=== PATIENT | female | born 1945 | race Caucasian/White ===

== ENCOUNTER 2022-05-24 19:51 | Inpatient (IN) | payer OTHER ==
--- OUTSIDE RECORDS SUMMARY | 2022-05-24 19:59 | XMS REPORT | Continuity of Care Document ---
:1945 Author Organization [facility] t Address [address] [place] [address] Care Team Providers Name Role Phone Amado Ardon MD Primary Care Physician [phone] [email or web address] Attending Clinician Unavailable ELIZABETH STOVALL Attending Clinician Unavailable KANDI DAVENPORT Attending Clinician Unavailable BELINDA CALHOUN Attending Clinician Unavailable BETTY GARNER Attending Clinician Unavailable ELLE VELAZQUEZ Attending Clinician Unavailable RADHA MOY Attending Clinician Unavailable MD DENG Attending Clinician Unavailable Pattie Tompkins Attending Clinician MAXINE KENYON Attending Clinician Unavailable ANTHONY MINOR Attending Clinician Unavailable PATTIE RAM Attending Clinician Unavailable Doctor Unassigned, [place] Attending Clinician Unavailable DERRICK MARIE Attending Clinician Raiza vailable [id number] Attending Clinician Unavailable Anthony Minor MD Attending Clinician ELIS MELARA Attending Clinician Unavailable BLANCA CALDERON Attending Clinician Unavailable JEREL VELÁSQUEZ Attending Clinician Unavailable RODNEY CORTES Attending Clinician Unavailable YADY CAVAZOS Attending Clinician Unavailable CARIE Attending Clinician Unavailable ERNIE VERAS Attending Clinician Unavailable LAB59 Attending Clinician Unavailable MARTELL BELTRAN Attending Clinician Unavailable ERICA MARRERO Attending Clinician Unavailable KATHY RAZO Attending Clinician Unavailable SOFIE GARCIA Attending Clinician Unavailable Maxine Kenyon DPM Attending Clinician [id number] Attending Clinician Unavailable Kathy Razo OD Attending Clinician TOMOGRAPHY, CK OPTICAL COHERENCE Attending Clinician Unavail able Elizabeth Stovall MD Attending Clinician ROBERTH NG Attending Clinician Unavailable LUZ MARIA LOCKE Attending Clinician Unavailable PATRICIO KLEIN Attending Clinician Unavailable Luz Maria Carcamo I Attending Clinician Unavailable Wang Jorgensen Attending Clinician Unavailable Sarah Mora Attending Clinician Unavailable Breonna Womack PA-C Attending Clinician Karly Maldonado Attending Clinician Unavailable BREONNA WOMACK Attending Clinician Unavailable Pcp-Lab Attending Clinician Unavailable Pathology Attending Clinician Unavailable VALERIE ALBARRAN Attending Clinician Unavailable Cory Davis Attending Clinician Unavailable Abelardo Huerta Attending Clinician Dio Peña DO Attending Clinician ABELARDO DAVIS Attending Clinician Unavailable GILLIAN CROSS Attending Clinician Unavailable Sultana Esqueda MD Attending Clinician Jet Drummond MD Attending Clinician CARIE Admitting Clinician Unavailable Luz Maria Carcamo I Admitting Clinician Unavailable Karly Maldonado Admitting Clinician Unavailable Wang Jorgensen Admitting Clinician Unavailable Cory Davis Admitting Clinician Unavailable Payers Payer Name Policy Type Policy Number Effective Date Expiration Date S cristino [employer] Medicare P [id number] 2018 HMO 00:00:00 [facility] TXP 7 [id number] 2021 CLASSIC NO PREMIUM 00:00:00 [facility] [place] [facility] [facility] [id number] 2022 O 00:00:00 [employer]NY [employer] O 7 [id number] 2022 00:00:00 MEDICARE-PART B 5 [id number] 2022 00:00:00 NAZARIO/ROBBINP [id number] 2020 MEDICARE ADVANTAGE 00:00:00 Problems Condition Condition Condition Status Onset Resolution Last Treating Co mments Source Name Details Category Date Date Treatment Clinician Date Seizure Seizure Disease Active Univers disorder disorder 02-28 ity of 00:00: [place] [facility] Overactive Overactive Disease Active U nivers bladder bladder 02-28 ity of 00:: [place] [id number] Medical Branch Chronic Chronic Disease Active Natalya combined combined 4-28 Seybol d systolic systolic 00:00: and and 00 diastolic diastolic CHF CHF (congestiv (congestiv e heart e heart failure) failure) Osteoarthr Osteoarthr Disease Active Rafael allison itis, itis, - Seybold generalize generalize 00:00: d d 00 Fibromyalg Fibromyalg Disease Active Rafael allison ia ia -28 Seybold 00:00: 00 Seizure Seizure Disease Active Natalya -28 Seybold 00:00: 00 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 -28 Se ybold nt asthma nt asthma 00:00: without without 00 complicati complicati on on Balance Balance Disease Active Natalya problems problems -28 Seybol d 00:00: 00 Overweight Overweight Disease Active Rafael allison (BMI (BMI 4-28 Seybold 25.0-29.9) 25.0-29.9) 00:00: 00 Paroxysmal Paroxysmal Disease Active Rafael elseleti A-fib A-fib 4-28 Seybold 00:00: 00 Hypercoagu Hypercoagu Disease Active Rafael allison lability lability -28 Seybol d due to due to 00:00: atrial atrial 00 fibrillati fibrillati on on Chronic Chronic Disease Active Natalya anticoagul anticoagul -28 Se ybold ation ation 00:00: 00 High risk High risk Disease Active Cuauhtemoc herediay medication medication 4-28 Se ybold use use 00:00: 00 Allergic Allergic Disease Active Kelse y rhinitis rhinitis 10-19 Seybol d 00:00: 00 MARK MARK Disease Active Natalya (generaliz (generaliz 10-19 Se ybold ed anxiety ed anxiety 00:00: disorder) disorder) 00 S/p S/p Disease Active Natalya nephrectom nephrectom 10-19 Se ybold y y 00:00: 00 Essential Essential Disease Active Uni vers hypertensi hypertensi 2-24 it y of on on 00:00: [place] 00 Medical Branch Pure Pure Disease Active Univers hyperchole hyperchole 2-24 it y of sterolemia sterolemia 00:[place] [facility] Gastroesop Gastroesop Disease Active U nivers hageal hageal 2-24 ity of reflux reflux 00:00: [place] disease disease 00 Medical without without Branch esophagiti esophagiti s s Acquired Acquired Disease Active Unive rs hypothyroi hypothyroi 2-24 it y of dism dism 00:00: [place] 00 Medical Branch Chronic Chronic Disease Active Methodi congestive congestive 2-28 st heart heart 00:00: Hospita failure failure 00 l Chronic Chronic Disease Active 2017-06 Methodi congestive congestive 0-23 st heart heart 00:00: Hospita failure failure 00 l 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 0-23 st 00:00: Hospita 00 l CKD CKD Disease Active 2017-06 Methodi (chronic (chronic 0-23 st kidney kidney 00:00: Hospita disease) disease) 00 l stage 3, stage 3, GFR 30-59 GFR 30-59 ml/min ml/min Essential Essential Disease Active 2017-06 Met hodi hypertensi hypertensi 0-23 st on on 00:00: Hospita 00 l Other Other Disease Active 2017-06 Methodi specified specified 0-[address] hypothyroi hypothyroi 00:00: Ho spita dism dism 00 l Pure Pure Disease Active 2017-06 Methodi hyperchole hyperchole 0-23 st sterolemia sterolemia 00:00: Ho spita 00 l Age Age Disease Active 2017-06 Methodi related related 0-23 st osteoporos osteoporos 00:00: Ho spita is is 00 l Kidney Kidney Disease Active 2017-06 Methodi stone stone 023 st 00:00: Hospita 00 l Anxiety Anxiety Disease Active 2017-[address] 00:00: Hospita 00 l Chronic Chronic Disease Active 2017-[address] [facility] [address] 00:00: Hospita 00 l Paroxysmal Paroxysmal Disease Active U nivers atrial atrial 9-11 ity of fibrillati fibrillati [place] [facility] [place] Renal cyst Renal cyst Disease Active M ethodi 7- st 00:00: Hospita 00 l Solitary Solitary Disease Active Metho di left left 7 st kidney kidney 00:00: Hospita 00 l Ureterolit Ureterolit Disease Active M ethodi hiasis hiasis 6 st 00:00: Hospita 00 l Chronic Chronic Disease Active Univers systolic systolic 2-15 ity of congestive congestive 00:[place] heart heart 00 Medical failure failure Branch Anxiety Anxiety Disease Active Univers and and 9-13 [place]y of depression depression 00:[place] AICD AICD Disease Active Univers (automatic (automatic 8-17 it y of cardiovert cardiovert [place] er/defibri er/defibri 00 Me dical llator) llator) Branch present present Coronary Coronary Disease Active Unive rs artery artery 8-17 ity of disease disease 00:00: [place] involving involving 00 [facility] [place] Branch coronary coronary artery of artery of [place] heart heart without without angina angina pectoris pectoris Seronegati Seronegati Disease Active U nivers ve ve 1-19 ity of rheumatoid rheumatoid [place] arthritis arthritis 00 [facility] Branch Stage 3 Stage 3 Disease Active Univers chronic chronic 1-19 ity of kidney kidney 00:00: [place] disease disease 00 Medical Branch High risk High risk Diagnosis Active 2020-04-19 Memoria medication medication 02:48:14 l use use Active Sid n Diagnosis 04/19/2020 Zoë Najam Flare of Flare of Problem Active 2020-10-20 Memoria nephritis nephritis 02:59:08 l Active Da Problem 10/20/2020 Zoë Najam Chronic Chronic Problem Active 2020-10-20 Me moria pain pain 02:59:08 l syndrome syndrome Sid n Active Problem 10/20/2020 Zoë Benavides Flare of Flare of Problem Active 2020-10-20 Memoria rheumatoid rheumatoid 02:59:08 l arthritis arthritis Herm anthony Active Problem 10/20/2020 Zoë Benavides Rheumatoid Rheumatoi Diagnosis Active 2020-10-20 Memoria arthritis d 02:59:08 l of arthritis [place] multiple of sites multiple without sites organ or without system organ or involvemen system t with involvemen positive t with rheumatoid positive factor rheumatoid factor Active Diagnosis 10/20/2020 Zoë Benavides Lumbago Lumbago Problem Active 2020-10-20 Me moria due to due to 02:59:08 l displaceme displaceme He rmann nt of nt of interverte interverte bral disc bral disc Active Problem 10/20/2020 Zoë Benavides Allergies, Adverse Reactions, Alerts Allergy Allergy Status Severity Reaction(s) Onset Inactive Treating Comm ents Source Name Type Date Date Clinician Demerol Propensi Active Natalya ty to 428 Seybold adverse 00:00: reaction 00 s cephalex DA Active [place] R[facility] 2021-[facility] tetracyc DA Active [place] HIVES 2021-0 [facility] line 07-25 [facility]: d [facility] meperidi DA Active [place] RASH 2021-0 [facility] ne 07-25 [facility] 00:[facility]: d [facility] penicill DA Active [place] ALLERGIC [facility] in G 07-25 [facility] 00:[facility]: d 00 [facility] cephalex DA Active [place] RASH 2021-0 [facility] in 07-09 [facility] 00:[facility]: d 00 [facility] tetracyc DA Active [place] HIVES 2021-0 [facility] line 07-09 [facility] 00:00: d 00 [facility] meperidi DA Active [place] RASH 2021-0 [facility] ne 07-09 [facility] 00:[facility]: d 00 [facility] penicill DA Active [place] ALLER[facility]IC [facility] in G 07-09 [facility] 00:00: d 00 [facility] Center DULOXETI DRUG Active Other-Cmnt Univ ers NE INGREDI 2-24 ity of 00:00: [place] 00 Medical Branch Duloxeti Propensi Active Other - See "Made me Univers ne ty to comments 2-24 psychotic ity o f adverse 00:00: " [place] reaction 00 Medical s Branch Tetracyc Tetracyc Active Info Not 2019-06 Abhilash hema line HCl line HCl Available 0-26 l 00:00: Da 00 Keflex Keflex Active Info Not 2019-06 Memoria Available 0-26 l 00:00: [place] 00 Demerol Demerol Active Info Not 2019-06 Memori a Available 0-26 l 00:00: Da 00 Meperidi Propensi Active Anaphylaxis 2018-0 M ethodi ne ty to 12-10 st adverse 00:00: Hospita reaction 00 l s to drug Cephalex Propensi Active Other 2013-06 Breathing Cuauhtemoc sey in ty to 07-04 problems Seybold adverse 00:00: reaction 00 s Penicill Propensi Active Hives 2013-06 Natalya ins ty to 07-04 Seybold adverse 00:00: reaction 00 s Tetracyc Propensi Active Other 2013-06 Natalya line Hcl ty to 07-04 Seybold adverse 00:00: reaction 00 s Penicill Propensi Active Hives 2013-06 Method i ins ty to 07-04 st adverse 00:00: Hospita reaction 00 l s to drug Cephalex Propensi Active Unknown - 2013-06 Breathing Univers in ty to See comments 1-11 problems it y of adverse 00:00: [place] reaction 00 Medical s Branch Penicill Propensi Active Hives 2013-06 Univer s ins ty to 07-04 ity of adverse 00:00: [place] reaction 00 Medical s Branch MEPERIDI DRUG Active Unknown-Cmnt 2013-06 Un hugo NE HCL INGREDI 07-04 ity of 00:00: [place] 00 Medical Branch CEPHALEX DRUG Active Unknown-Cmnt 2013-06 Un hugo IN INGREDI 07-04 ity of 00:00: [place] 00 Medical Branch PENICILL Drug Active Hives 2013-06 Univers INS Class - ity of 00:00: [place] 00 Medical Branch TETRACYC DRUG Active Unknown-Cmnt 2013-06 Un hugo LINE INGREDI 07-04 ity of 00:00: [place] 00 Medical Branch Meperidi Propensi Active Unknown - 2013-06 Breathing Univers ne Hcl ty to See comments 1-11 problems, i ty of adverse 00:00: states [place] reaction 00 couldn't Medica l s breath , Branch Cephalex Propensi Active Other (See 2013-06 Breathing Methodi in ty to Comments) 07-[address] adverse 00:00: Hospita reaction 00 l s to drug Meperidi Propensi Active Other (See 2013-06 Breathing Methodi ne Hcl ty to Comments) 07-04 problems, st adverse 00:00: states Hospita reaction 00 couldn't l s to breath , drug Penicill Propensi Active Hives 2013-06 Method i ins ty to 07-04 st adverse 00:00: Hospita reaction 00 l s to drug Tetracyc Propensi Active Other (See 2013-06 Me thodi line ty to Comments) 07-04 st adverse 00:00: Hospita reaction 00 l s to drug morphine DA Active U 2008- [facility] 12-24 [facility] 00:[facility]: d 00 [facility] codeine DA Active U [facility] 12-24 [facility] 00:00: d 00 Medical Center Not DA Active U [facility] Converte 12-24 [facility] d 1437. 00:00: d See 00 Medical [facility] Family History Family Member Diagnosis Comments Start Date Stop Date Source Natural father Alcohol abuse [facility] Natural father Heart disease [facility] Natural mother Cancer [facility] Social History Social Habit Start Date Stop Date Quantity Comments Source Exposure to 2022-03-17 2022-03-27 Not sure [facility] SARS-CoV-2 00:00:00 12:40:00 [facility] (event) Branch Tobacco use and 2022-02-28 2022-02-28 Smokeless tobacco Un iversity of exposure 00:00:00 00:00:00 non-user [facility] Alcohol intake 2019-06-09 2019-06-09 Current [facility] 00:00:00 00:00:00 non-drinker of alcohol (finding) Sex [birth year] [facility] 00:00:00 00:00:00 Smoking Status Start Date Stop Date Source Never smoked tobacco [facility] Medications Ordered Filled Start Stop Current Ordering Indication Dosage Frequency Signature Comments Components Source Medication Medication Date Date Medication? Clinician (SIG) Name Name lansoprazol 2021-06 Yes 30mg Take 30 mg Univers e 30 mg 0-04 by mouth ity of capsule 13:10: in the [place] 20 morning. [facility] Branch spironolact 2021-06 Yes 25mg Take 25 mg Univers one 25 mg 0-04 by mouth ity of tablet 13:10: in the [place] 20 morning. Medical Branch lansoprazol 2021-06 Yes 30mg Take 30 mg Univers e 30 mg 0-04 by mouth ity of capsule 13:10: in the [place] 20 morning. Medical Branch spironolact 2021-06 Yes 25mg Take 25 mg Univers one 25 mg 0-04 by mouth ity of tablet 13:10: in the [place] 20 morning. Medical Branch lansoprazol 2021- Yes 30mg Take 30 mg Univers e 30 mg 0-04 by mouth ity of capsule 13:10: in the [place] 20 morning. Medical Branch spironolact 2021-06 Yes 25mg Take 25 mg Univers one 25 mg 0-04 by mouth ity of tablet 13:10: in the [place] 20 morning. Medical Branch lansoprazol 2021-06 Yes 30mg Take 30 mg Univers e 30 mg 0-04 by mouth ity of capsule 13:10: in the [place] 20 morning. Medical Branch spironolact 2021-06 Yes 25mg Take 25 mg Univers one 25 mg 0-04 by mouth ity of tablet 13:10: in the [place] 20 morning. Medical Branch benzonatate 2021-06 Yes [id number] 200mg Take 1 Univers 200 mg 0-04 capsule by ity of capsule 00:00: mouth 3 [place] 00 (three) Medical times Branch daily as needed for Cough. benzonatate 2021-06 Yes [id number] 200mg Take 1 Univers 200 mg 0-04 capsule by ity of capsule 00:00: mouth 3 [place] 00 (three) Medical times Branch daily as needed for Cough. benzonatate 2021-06 Yes [id number] 200mg Take 1 Univers 200 mg 0-04 capsule by ity of capsule 00:00: mouth 3 [place] 00 (three) Medical times Branch daily as needed for Cough. benzonatate 2021-06 Yes [id number] 200mg Take 1 Univers 200 mg 0-04 capsule by ity of capsule 00:00: mouth 3 [place] 00 (three) Medical times Branch daily as needed for Cough. clindamycin 2021-06- Yes [id number] 300mg Take 1 Univers 300 mg 0-04 10-15 capsule by ity of capsule 00:00: 04:59 mouth in [place] 00 :00 the Medical morning Branch and 1 capsule at noon and 1 capsule in the evening. Do all this for 10 days. clindamycin 2021-06- Yes [id number] 300mg Take 1 Univers 300 mg 0-04 10-15 capsule by ity of capsule 00:00: 04:59 mouth in [place] 00 :00 the Medical morning Branch and 1 capsule at noon and 1 capsule in the evening. Do all this for 10 days. clindamycin 2021-06- Yes [id number] 300mg Take 1 Univers 300 mg 0-04 10-15 capsule by ity of capsule 00:00: 04:59 mouth in [place] 00 :00 the Medical morning Branch and 1 capsule at noon and 1 capsule in the evening. Do all this for 10 days. lansoprazol 2021-0 Yes 30mg Take 30 mg Univers e 30 mg 9-07 by mouth ity of capsule 10:15: in the [place] 29 morning. Medical Branch lansoprazol 2021-0 Yes 30mg Take 30 mg Univers e 30 mg 9-07 by mouth ity of capsule 10:15: in the [place] 29 morning. Medical Branch spironolact 2021-0 Yes 25mg Take 25 mg Univers one 25 mg 9-07 by mouth ity of tablet 10:15: in the [place] 22 morning. Medical Branch spironolact 2021-0 Yes 25mg Take 25 mg Univers one 25 mg 9-07 by mouth ity of tablet 10:15: in the [place] 22 morning. Medical Branch traMADoL 50 2021-0 Yes 50mg Take 50 mg Univers mg tablet -07 by mouth ity of 10:06: every 6 [place] [address] (six) Medical hours as Branch needed. tiZANidine 2-0 Yes 4mg Take 4 mg Un hugo 4 mg tablet 9-07 by mouth ity of 10:06: every 6 [place] 12 (six) Medical hours as Branch needed. traMADoL 50 2021-0 Yes 50mg Take 50 mg Univers mg tablet 9-07 by mouth ity of 10:06: every 6 [place] 12 (six) Medical hours as Branch needed. tiZANidine 2022-0 Yes 4mg Take 4 mg Un hugo 4 mg tablet 9-07 by mouth ity of 10:06: every 6 [place] 12 (six) Medical hours as Branch needed. traMADoL 50 2-0 Yes 50mg Take 50 mg Univers mg tablet 02-28 by mouth ity of 10:06: every 6 [place] 12 (six) Medical hours as Branch needed. tiZANidine 2022-0 Yes 4mg Take 4 mg Un hugo 4 mg tablet 02-28 by mouth ity of 10:06: every 6 [place] 12 (six) Medical hours as Branch needed. traMADoL 50 2-0 Yes 50mg Take 50 mg Univers mg tablet 02-28 by mouth ity of 10:06: every 6 [place] 12 (six) Medical hours as Branch needed. tiZANidine 2022-0 Yes 4mg Take 4 mg Un hugo 4 mg tablet 02-28 by mouth ity of 10:06: every 6 [place] 12 (six) Medical hours as Branch needed. traMADoL 50 2-0 Yes 50mg Take 50 mg Univers mg tablet 02-28 by mouth ity of 10:06: every 6 [place] 12 (six) Medical hours as Branch needed. tiZANidine 2-0 Yes 4mg Take 4 mg Un hugo 4 mg tablet 02-28 by mouth ity of 10:06: every 6 [place] 12 (six) Medical hours as Branch needed. traMADoL 50 2-0 Yes 50mg Take 50 mg Univers mg tablet 02-28 by mouth ity of 10:06: every 6 [place] 12 (six) Medical hours as Branch needed. tiZANidine 2-0 Yes 4mg Take 4 mg Un hugo 4 mg tablet 02-28 by mouth ity of 10:06: every 6 [place] 12 (six) Medical hours as Branch needed. aspirin 81 2021-0 2021- No 81mg Take 81 mg Univers mg EC 02-28 by mouth ity of tablet 10:02: 00:00 daily. [place] 11 :00 Medical Branch oxybutynin 2021-0 Yes 1{tbl} Take 1 Uni vers XL 5 mg 24 8-27 tablet by ity of hr tablet 00:00: [place] the Medical morning. Branch oxybutynin 2021-0 Yes 1{tbl} Take 1 Uni vers XL 5 mg 24 8-27 tablet by ity of hr tablet 00:00: [place] the Medical morning. Branch oxybutynin 2022-0 Yes 1{tbl} Take 1 Uni vers XL 5 mg 24 8-27 tablet by ity of hr tablet 00:00: [place] the Medical morning. Branch oxybutynin 2-0 Yes 1{tbl} Take 1 Uni vers XL 5 mg 24 8-27 tablet by ity of hr tablet 00:00: [place] the Medical morning. Branch oxybutynin 2-0 Yes 1{tbl} Take 1 Uni vers XL 5 mg 24 8-27 tablet by ity of hr tablet 00:00: [place] the Medical morning. Branch oxybutynin 2-0 Yes 1{tbl} Take 1 Uni vers XL 5 mg 24 8-27 tablet by ity of hr tablet 00:00: [place] the Medical morning. Branch amLODIPine 2022-0 Yes 5mg Take 5 mg Un hugo 5 mg tablet 7-05 by mouth ity of 00:00: in the [place] morning. Medical Branch losartan 25 2-0 Yes 25mg Take 25 mg Univers mg tablet 7-05 by mouth ity of 00:00: every [place] morning. Medical Branch amLODIPine 2-0 Yes 5mg Take 5 mg Un hugo 5 mg tablet 7-05 by mouth ity of 00:00: in the [place] morning. Medical Branch losartan 25 2-0 Yes 25mg Take 25 mg Univers mg tablet 7-05 by mouth ity of 00:00: every [place] morning. Medical Branch amLODIPine 2022-0 Yes 5mg Take 5 mg Un hugo 5 mg tablet 7-05 by mouth ity of 00:00: in the morning. Medical Branch losartan 25 2-0 Yes 25mg Take 25 mg Univers mg tablet 7-05 by mouth ity of 00:00: every [place] morning. Medical Branch amLODIPine 2022-0 Yes 5mg Take 5 mg Un hugo 5 mg tablet 7-05 by mouth ity of 00:00: in the morning. Medical Branch losartan 25 2-0 Yes 25mg Take 25 mg Univers mg tablet 7-05 by mouth ity of 00:00: every [place] morning. Medical Branch amLODIPine 2022-0 Yes 5mg Take 5 mg Un hugo 5 mg tablet 7-05 by mouth ity of 00:00: in the [place] morning. Medical Branch losartan 25 Yes 25mg Take 25 mg Univers mg tablet 7-05 by mouth ity of 00:00: every [place] morning. Medical Branch amLODIPine Yes 5mg Take 5 mg Un hugo 5 mg tablet 7-05 by mouth ity of 00:00: in the [place] morning. Medical Branch losartan 25 0 Yes 25mg Take 25 mg Univers mg tablet 7-05 by mouth ity of 00:00: every [place] morning. Medical Branch Metoprolol 0 2021- No 50mg Take 50 mg Natalya Succinate 4-28 04-28 by mouth Seybo ld 50 MG oral 15:18: 00:00 every TABLET SR 49 :00 morning 24 HR Cholecalcif Yes [id number] 25U Take 25 Natalya tanner 4-28 units by Seybold (Vitamin D) 14:12: mouth 25 MCG 24 daily (1000 UT) oral Tablet Losartan Yes [id number] 25mg Take 1 [place] Potassium 4-28 tablet (25 Seyb old 25 MG oral 00:00: mg total) Tablet 00 by mouth daily Gabapentin Yes [id number] 300mg Take 1 Natalya 300 MG oral 4-28 capsule Seybo ld Capsule 00:00: (300 mg 00 total) by mouth at bedtime Metoprolol Yes [id number] 50mg Take 1 K elsey Succinate 4-28 tablet (50 Seyb old 50 MG oral 00:00: mg total) TABLET SR 00 by mouth 24 HR every morning Amlodipine 2021-0 Yes [id number] 5mg Take 1 K elsey Besylate 5 4-28 tablet (5 Seyb old MG oral 00:00: mg total) Tablet 00 by mouth daily Tizanidine Yes [id number] 4mg QD Take 1 Natalya HCl 4 MG 4-28 tablet (4 Seybol d oral Tablet 00:00: mg total) 00 by mouth daily as needed Apixaban Yes [id number] TAKE ONE Natalya (Eliquis) 4-28 TABLET BY Seybo ld 2.5 MG oral 00:00: MOUTH Tablet 00 TWICE DAILY DIRECTED Rosuvastati 0 Yes [id number] 40mg Take 1 Natalya n Calcium 4-28 tablet (40 Seyb old 40 MG oral 00:00: mg total) Tablet 00 by mouth nightly AT BEDTIME Sulfasalazi 2021-0 Yes [id number] 1500mg Take 3 Natalya ne 500 MG 4-28 tablets Seybold oral Tablet 00:00: (1,500 mg 00 total) by mouth in the morning and 3 tablets (1,500 mg total) in the evening. Furosemide 2021-0 Yes [id number] 20mg Take 1 Natalya 20 MG oral 4-28 tablet (20 Sey bold Tablet 00:00: mg total) 00 by mouth daily FLUTICASONE 2021-0 Yes [id number] SPRAY ONCE Natalya PROPIONATE, 4-28 IN EACH Seybo ld NASAL, 50 00:00: NOSTRIL MCG/ACT 00 EVERY DAY nasal Suspension Pantoprazol 0 Yes [id number] 40mg Take 1 Natalya e Sodium 40 4-28 tablet (40 Se ybold MG oral 00:00: mg total) Tablet 00 by mouth Delayed daily Response Escitalopra 2021-0 Yes [id number] 20mg Take 1 Natalya m Oxalate 4-28 tablet (20 Seyb old 20 MG oral 00:00: mg total) Tablet 00 by mouth daily Fluticasone 2021-0 Yes [id number] INHALE ONE Natalya Furoate-Robert 4-28 PUFF DAILY Se ybold anterol 00:00: (Breo Ellipta) 200-25 MCG/INH inhalation AEROSOL POWDER, BREATH ACTIVATED Levothyroxi 2021-0 Yes [id number] 88ug Take 1 Natalya ne Sodium 4-28 tablet (88 Seyb old 88 MCG oral 00:00: mcg total) Tablet 00 by mouth every morning on an empty stomach fluticasone 2021-0 Yes 1{puff} Inhale 1 Univers furoate-robert 4-28 Puff ity of anteroL 00:00: daily. [facility] [place] [facility] Medical ELLIP) Branch 200-25 mcg/dose DsDv fluticasone 2021-0 Yes 1{puff} Inhale 1 Univers furoate-robert 4-28 Puff ity of anteroL 00:00: daily. [place] ([facility] Medical ELLIPTA) Branch 200-25 mcg/dose DsDv fluticasone 2021-0 Yes 1{puff} Inhale 1 Univers furoate-robert 4-28 Puff ity of anteroL 00:00: daily. [place] 200 Medical mcg/dose Branch DsDv fluticasone Yes 1{puff} Inhale 1 Univers furoate-roebrt 4-28 Puff ity of anteroL 00:00: daily. [place] 200 Medical mcg/dose Branch DsDv fluticasone Yes 1{puff} Inhale 1 [facility] furoate-robert 4-28 Puff ity of anteroL 00:00: daily. [place] 200 Medical mcg/dose Branch DsDv fluticasone Yes 1{puff} Inhale 1 [facility] furoate-robert 4-28 Puff ity of anteroL 00:00: daily. [place] Medical mcg/dose Branch DsDv Levothyroxi 2021- No 88ug Take 88 Ke lsey ne Sodium 09-21- mcg by Seybold 88 MCG oral 00:00: 00:00 mouth Tablet 00 :00 every morning on an empty stomach Pantoprazol 2021- No 40mg Take 40 mg Natalya e Sodium 40 09-20- by mouth Sey bold MG oral 00:00: 00:00 daily Tablet 00 :00 Delayed Response Breo 2021- No INHALE ONE Natalya Ellipta 09-20-28 PUFF DAILY Seybo ld 200-25 00:00: 00:00 MCG/INH 00 :00 inhalation AEROSOL POWDER, BREATH ACTIVATED Losartan 2021- No 25mg Take 25 mg Ke lsey Potassium 09-18- by mouth Seybo ld 25 MG oral 00:00: 00:00 daily Tablet 00 :00 Sulfasalazi 2021- No 3{tbl} Take 3 K elsey ne 500 MG 09-13- tablets by Sey bold oral Tablet 00:00: 00:00 mouth in 00 :00 the morning and 3 tablets in the evening. Tizanidine 2021- No 4mg QD Take 4 mg K elsey HCl 4 MG 09-12 by mouth Seybol d oral Tablet 00:00: 00:00 daily as 00 :00 needed ESCITALOPRA Yes [id number] TAKE ONE Univers M OXALATE 3-04 TABLET BY ity o f 20 mg 00:00: MOUTH [place] tablet 00 EVERY DAY Medical Branch ESCITALOPRA Yes [id number] TAKE ONE Univers M OXALATE 3-04 TABLET BY ity o f 20 mg 00:00: MOUTH [place] tablet 00 EVERY DAY Medical Branch ESCITALOPRA Yes [id number] TAKE ONE Univers M OXALATE 3-04 TABLET BY ity o f 20 mg 00:00: MOUTH [place] tablet 00 EVERY DAY Medical Branch ESCITALOPRA Yes [id number] TAKE ONE Univers M OXALATE 3-04 TABLET BY ity o f 20 mg 00:00: MOUTH [place] tablet 00 EVERY DAY Medical Branch ESCITALOPRA Yes [id number] TAKE ONE Univers M OXALATE 3-04 TABLET BY ity o f 20 mg 00:00: MOUTH [place] tablet 00 EVERY DAY Medical Branch ESCITALOPRA Yes [id number] TAKE ONE Univers M OXALATE 3-04 TABLET BY ity o f 20 mg 00:00: MOUTH [place] tablet 00 EVERY DAY Medical Branch Eliquis 2.5 2021- No TAKE ONE K elsey MG oral 08-22 TABLET BY Seybol d Tablet 00:00: 00:00 MOUTH 00 :00 TWICE DAILY DIRECTED FLUTICASONE 2021- No SPRAY ONCE Natalya PROPIONATE, 08-22 IN EACH Seyb old NASAL, 50 00:00: 00:00 NOSTRIL MCG/ACT 00 :00 EVERY DAY nasal Suspension Escitalopra 2021- No 20mg Take 20 mg Natalya m Oxalate 08-20 by mouth Seybo ld 20 MG oral 00:00: 00:00 daily Tablet 00 :00 Rosuvastati 2021-2021- No 40mg Take 40 mg Natalya n Calcium 08-10- by mouth Seybo ld 40 MG oral 00:00: 00:00 nightly AT Tablet 00 :00 BEDTIME Furosemide 2021-2021- No 20mg Take 20 mg Natalya 20 MG oral 08-09 by mouth Seyb old Tablet 00:00: 00:00 daily 00 :00 Gabapentin 2021-2021- No 300mg Take 300 K elsey 300 MG oral 2-16 04-28 mg by Seybol d Capsule 00:00: 00:00 mouth at 00 :00 bedtime Amlodipine 2-0 2- No 5mg Take 5 mg K elsey Besylate 5 -04 27-28 by mouth Seyb old MG oral 00:00: 00:00 daily Tablet 00 :00 GABAPENTIN 2020-06 Yes [id number] TAKE ONE [facility] 300 mg 0-12 (1) it[facility] of capsule 00:00: [place] MOUTH AT Medical BEDTIME. Branch METOPROLOL 2020-06 Yes [id number] TAKE ONE [facility] SUCCINATE 0-12 (1) TABLET ity of XL 50 mg 24 00:00: [place] tablet 00 ONCE A Medical DAY. Branch GABAPENTIN 2020-06 Yes [id number] TAKE ONE [facility] 300 mg 0-12 (1) it[facility] of capsule 00:00: [place] MOUTH AT Medical BEDTIME. Branch METOPROLOL 2020-06 Yes [id number] TAKE ONE [facility] SUCCINATE 0-12 (1) TABLET ity of XL 50 mg 24 00:00: [place] tablet 00 ONCE A Medical DAY. Branch GABAPENTIN 2020-06 Yes [id number] TAKE ONE [facility] 300 mg 0-12 (1) ity of capsule 00:00: [place]LE [place] 00 MOUTH AT Medical BEDTIME. Branch METOPROLOL 2020-06 Yes [id number] TAKE ONE [facility] SUCCINATE 0-12 (1) TABLET ity of XL 50 mg 24 00:00: [place] tablet 00 ONCE A Medical DAY. Branch GABAPENTIN 2020-06 Yes [id number] TAKE ONE [facility] 300 mg 0-12 (1) ity of capsule 00:00: CAP[place]LE [place] 00 MOUTH AT Medical BEDTIME. Branch METOPROLOL 2020-06 Yes [id number] TAKE ONE [facility] SUCCINATE 0-12 (1) TABLET ity of XL 50 mg 24 00:00: [place] tablet 00 ONCE A Medical DAY. Branch GABAPENTIN 2020-06 Yes [id number] TAKE ONE [facility] 300 mg 0-12 (1) ity of capsule 00:00: CAP[place]LE [place] 00 MOUTH AT Medical BEDTIME. Branch METOPROLOL 2020-06 Yes [id number] TAKE ONE [facility] SUCCINATE 0-12 (1) TABLET ity of XL 50 mg 24 00:00: [place]TH [place] tablet 00 ONCE A Medical DAY. Branch GABAPENTIN 2020-06 Yes [id number] TAKE ONE [facility] 300 mg 0-12 (1) ity of capsule 00:00: CAPSULE [place] 00 MOUTH AT Medical BEDTIME. Branch METOPROLOL 2020-06 Yes [id number] TAKE ONE [facility] SUCCINATE 0-12 (1) TABLET ity of XL 50 mg 24 00:00: [place]TH [place] tablet 00 ONCE A Medical DAY. Branch PANTOPRAZOL 2- No [id number] TAKE ONE Univers E 40 mg EC 8 09-07 (1) ity of tablet 00:00: 00:00 TABLET(S) [place] 00 :00 BY MOUTH Medical ONCE A Branch DAY. levothyroxi Yes [id number] 88ug Take 1 [facility] ne 88 mcg 5-18 tablet by ity o f tablet 00:00: mouth [place] 00 every Medical morning. Branch levothyroxi Yes [id number] 88ug Take 1 [facility] ne 88 mcg 5-18 tablet by ity o f tablet 00:00: mouth [place] 00 every Medical morning. Branch levothyroxi Yes [id number] 88ug Take 1 [facility] ne 88 mcg 5-18 tablet by ity o f tablet 00:00: mouth [place] 00 every Medical morning. Branch levothyroxi Yes [id number] 88ug Take 1 [facility] ne 88 mcg 5-18 tablet by ity o f tablet 00:00: mouth [place] 00 every Medical morning. Branch levothyroxi Yes [id number] 88ug Take 1 [facility] ne 88 mcg 5-18 tablet by ity o f tablet 00:00: mouth [place] 00 every Medical morning. Branch levothyroxi Yes [id number] 88ug Take 1 [facility] ne 88 mcg 5-18 tablet by ity o f tablet 00:00: mouth [place] 00 every Medical morning. Branch sulfaSALAzi 0 Yes [id number] 1500mg Take 3 [facility] ne 500 mg 5-04 tablets by ity of EC tablet 00:00: mouth 2 [place] 00 (two) Medical times [place] daily. sulfaSALAzi 2020-0 Yes [id number] 1500mg Take 3 [facility] ne 500 mg 5-04 tablets by ity of EC tablet 00:00: mouth 2 [place] 00 (two) Medical times [place] daily. sulfaSALAzi Yes [id number] 1500mg Take 3 [facility] ne 500 mg 5-04 tablets by ity of EC tablet 00:00: mouth 2 (two) Medical times Branch daily. sulfaSALAzi Yes [id number] 1500mg Take 3 [facility] ne 500 mg 5-04 tablets by ity of EC tablet 00:00: mouth 2 (two) Medical times Branch daily. sulfaSALAzi Yes [id number] 1500mg Take 3 [facility] ne 500 mg 5-04 tablets by ity of EC tablet 00:00: mouth 2 (two) Medical times Branch daily. sulfaSALAzi Yes [id number] 1500mg Take 3 [facility] ne 500 mg 5-04 tablets by ity of EC tablet 00:00: mouth 2 (two) Medical times Branch daily. Vitamin E Yes Zoë 1 capsule M emoria 4-29 Najam l 02:59: Vitamin D Yes Zo[place] 1 tablet Me moria 4-29 Najam l 02:59: Sertraline Yes Zo[place] 1 tablet M emoria HCl 4-29 Najam l 02:59: Aspirin Yes Zoë 1 tablet Abhilash hema 4-29 Najam l 02:59: Clopidogrel Yes Zoë 1 tablet Memoria Bisulfate 4-29 Najam l 02:59: Levothyroxi Yes Zoë 1 tablet Memoria ne Sodium 4-29 Najam on an l 02:59: empty 08 stomach in the morning Atorvastati Yes Zoë 1 tablet Memoria n Calcium 4-29 Najam l 02:59: Lansoprazol Yes Zoë 1 capsule Memoria e 4-29 Najam l 02:59: Sulfasalazi Yes Zoë 1 tablet Memoria ne 4-29 Najam l 02:59: cimzia Yes Zo[place] 400 mg Memoria lysolysed 4-29 Najam l 02:59: Vitamin E Yes Zoë 1 capsule M emoria 4-29 Najam l 02:59: Vitamin D Yes Zoë 1 tablet Me moria 4-29 Najam l 02:59: Sertraline Yes Zoë 1 tablet M emoria HCl 4-29 Najam l 02:59: Aspirin Yes Zoë 1 tablet Abhilash hema 4-29 Najam l 02:59: Clopidogrel Yes Zoë 1 tablet Memoria Bisulfate 4-29 Najam l 02:59: Levothyroxi Yes Zoë 1 tablet Memoria ne Sodium 4-29 Najam on an l 02:59: empty stomach in the morning Atorvastati Yes Zoë 1 tablet Memoria n Calcium 4-29 Najam l 02:59: Lansoprazol Yes Zoë 1 capsule Memoria e 4-29 Najam l 02:59: Da 08 Sulfasalazi Yes Zoë 1 tablet Memoria ne 4-29 Najam l 02:59: [place] 08 cimzia Yes Zoë 400 mg Memoria lysolysed 4-29 Najam l 02:59: rosuvastati Yes [id number] 40mg Take 1 Univers n 40 mg 4-22 tablet by ity of tablet 00:00: mouth at [place] 00 bedtime. Medical Branch rosuvastati Yes [id number] 40mg Take 1 [facility] n 40 mg 4-22 tablet by ity of tablet 00:00: mouth at [place] 00 bedtime. Medical Branch rosuvastati Yes [id number] 40mg Take 1 [facility] n 40 mg 4-22 tablet by ity of tablet 00:00: mouth at [place] 00 bedtime. Medical Branch rosuvastati Yes [id number] 40mg Take 1 [facility] n 40 mg 4-22 tablet by ity of tablet 00:00: mouth at [place] 00 bedtime. Medical Branch rosuvastati Yes [id number] 40mg Take 1 [facility] n 40 mg 4-22 tablet by ity of tablet 00:00: mouth at [place] [address] bedtime. Medical Branch rosuvastati Yes [id number] 40mg Take 1 [facility] n 40 mg 4-22 tablet by ity of tablet 00:00: mouth at [place] [address] bedtime. Medical Branch FUROSEMIDE 0 Yes [id number] TAKE ONE [facility] 20 mg 3-03 (1) ity of tablet 00:00: TABLET(S) [place] 00 BY MOUTH Medical ONCE A Branch DAY. FUROSEMIDE Yes [id number] TAKE ONE [facility] 20 mg 3-03 (1) ity of tablet 00:00: TABLET(S) [place] 00 BY MOUTH Medical ONCE A Branch DAY. FUROSEMIDE Yes [id number] TAKE ONE [facility] 20 mg 3-03 (1) ity of tablet 00:00: TABLET(S) [place] 00 BY MOUTH Medical ONCE A Branch DAY. FUROSEMIDE Yes [id number] TAKE ONE [facility] 20 mg 3-03 (1) ity of tablet 00:00: TABLET(S) [place] 00 BY MOUTH Medical ONCE A Branch DAY. FUROSEMIDE Yes [id number] TAKE ONE [facility] 20 mg 3-03 (1) ity of tablet 00:00: TABLET(S) [place] 00 BY MOUTH Medical ONCE A Branch DAY. FUROSEMIDE Yes [id number] TAKE ONE [facility] 20 mg 3-03 (1) ity of tablet 00:00: TABLET(S) [place] 00 BY MOUTH Medical ONCE A Branch DAY. ondansetron 2022- No [id number] 4mg Take 1 Univers (ZOFRAN) 4 2-24 -07 tablet by ity of mg tablet 00:00: 00:00 mouth [place] 00 :00 every 8 Medical (eight) Branch hours as needed for Nausea and Vomiting (N/V). tramadol Yes Zoë take 1 Memor ia 1-24 Najam tablet by l 03:45: mouth 3 Da 25 times a day tramadol Yes Zoë take 1 Memor ia 1-24 Najam tablet by l 03:45: mouth 3 [facility] 25 times a day Tizanidine 2019-06 Yes Zoë 1 Capsule Memoria 2-06 Najam l 03:50: [place] 39 Cimzia 2019-06 Yes Zoë INJECT Memoria 2-06 Najam 400MG (2 l 03:50: VIALS) 39 SUBCUTANEO USLY AT WEEK 4, THEN 2O0MG (1 VIAL) EVERY 2 WEEKS DIRECTED. Tizanidine 2020-1 Yes Zëo 1 Capsule Memoria 2-06 Najam l 03:50: [place] 39 Cimzia 2020-1 Yes Zoë INJECT Memoria 2-06 Najam 400MG (2 l 03:50: VIALS) 39 SUBCUTANEO USLY AT WEEK 4, THEN 2O0MG (1 VIAL) EVERY 2 WEEKS DIRECTED. tramadol 2020-0 Yes Zoë take 1 Memor ia 9-24 Najam tablet by l 00:00: mouth 3 [place] 00 times a day tramadol 2020-0 Yes Zoë take 1 Memor ia 9-24 Najam tablet by l 00:00: mouth 3 [place] 00 times a day Tizanidine 2020-0 Yes Zoë 1 Capsule Memoria 9-03 Najam l 00:00: [place] 00 Medrol 2020-0 Yes Zoë as Memoria 9-03 Najam directed l 00:00: [place] 00 Tizanidine 2020-0 Yes Zoë 1 Capsule Memoria 9-03 Najam l 00:00: [place] 00 Medrol 2020-0 Yes Zoë as [facility] 9-03 Najam directed l 00:00: [place] 00 Eliquis 5 2020-0 Yes TAKE 1 [facility] mg tablet 8-[address] 00:00: MOUTH [facility] 00 TWICE A l DAY Eliquis 5 2020-0 Yes TAKE 1 [facility] mg tablet 8-[address] 00:00: MOUTH [facility] 00 TWICE A l DAY losartan 2020-0 Yes 25mg QD Take 1 [facility] (COZAAR) 25 5-29 tablet (25 st MG tablet 00:00: mg total) [facility] 00 by mouth l daily. losartan 2020-0 Yes 25mg QD Take 1 [facility] (COZAAR) 25 5-29 tablet (25 st MG tablet 00:00: mg total) [facility] [place] 00 by mouth l daily. azelastine 2020-0 Yes INSTILL 1 Me thodi (ASTELIN) 4-[address] 137 mcg 00:00: EACH Hospita (0.1 %) 00 NOSTRIL l nasal spray TWICE A DAY DIRECTED azelastine 2020-0 Yes INSTILL 1 Me thodi (ASTELIN) 4-[address] 137 mcg 00:00: EACH Hospita (0.1 %) 00 NOSTRIL l nasal spray TWICE A DAY DIRECTED tramadol 2019-0 Yes Zoë TAKE 1 Memor ia 4-25 Najam TABLET BY l 00:00: MOUTH 3 [facility] 00 TIMES A DAY tramadol 2019-0 Yes Zoë TAKE 1 Memor ia 4-25 Najam TABLET BY l 00:00: MOUTH 3 [place] 00 TIMES A DAY furosemide 2019-0 Yes TAKE 1 Metho di (LASIX) 20 3-[address] mg tablet 00:00: MOUTH [facility] 00 EVERY DAY l IN THE MORNING furosemide 2019-0 Yes TAKE 1 [facility] di (LASIX) 20 3-[address] mg tablet 00:00: MOUTH [facility] 00 EVERY DAY l IN THE MORNING rosuvastati 2019-0 Yes TAKE 1 Meth gauri n (CRESTOR) 3-[address] 40 MG 00:00: MOUTH [facility]osp[facility] tablet 00 EVERY DAY l rosuvastati 2019-0 Yes TAKE 1 Meth gauri n (CRESTOR) 3-[address] 40 MG 00:00: MOUTH [facility] tablet 00 EVERY DAY l alendronate 2019-0 Yes [id number] TAKE 1 [facility] (FOSAMAX) 2-05 TABLET (70 st 70 MG 00:00: MG TOTAL) Hospita tablet 00 BY MOUTH l EVERY 7 DAYS FOR 90 DAYS. TAKE ON MONDAYS alendronate 2019-0 Yes [id number] TAKE 1 [facility] (FOSAMAX) 2-05 TABLET (70 st 70 MG 00:00: MG TOTAL) Hospita tablet 00 BY MOUTH l EVERY 7 DAYS FOR 90 DAYS. TAKE ON MONDAYS ELIQUIS 5 2019-0 2020- No TAKE 1 Metho di mg tablet 1-24 - TABLET BY st 00:00: 00:00 MOUTH [facility]ospita 00 :00 TWICE A l DAY Sulfasalazi 2020-0 Yes Zoë 3 tabs Me moria ne 1-11 Najam l 00:00: [place] 00 Sulfasalazi 2020-0 Yes Zoë 3 tabs Me moria ne 1-11 Najam l 00:00: [place] 00 metoprolol 2019- Yes 50mg QD Take 50 mg M ethodi succinate 2-[address] XL 20:50: every Hospita (TOPROL-XL) 34 morning. l 50 mg 24 hr tablet spironolact 2018-06 Yes 12.5mg QD Take 12.5 [facility] one 2-[address] (ALDACTONE) 20:50: mouth Hos[facility] ta 25 MG 34 every l tablet morning. traMADol 2018-06 Yes 50mg Q6H Take 50 mg Met hodi (ULTRAM) 50 2-[address] mg tablet 20:50: every 6 Hospi ta 34 (six) l hours as needed for moderate pain. aspirin 2018-06 Yes 81mg QD Take 81 mg Meth gauri (ASPERDRINK 2-[address] ORAL) 20:50: every Hospita 34 evening. l sulfaSALAzi 2018-06 Yes 500mg Q.5D Take 500 M ethodi ne 2-[address] (AZULFIDINE 20:50: mouth 2 [facility] ) 500 mg 34 (two) l tablet times a day. metoprolol 2018-06 Yes 50mg QD Take 50 mg M ethodi succinate 2-[address] XL 14:50: every Hospita (TOPROL-XL) 34 morning. l 50 mg 24 hr tablet spironolact 2018-06 Yes 12.5mg QD Take 12.5 [facility] one 2-[address] (ALDACTONE) 14:50: mouth Hos[facility] ta 25 MG 34 every l tablet morning. traMADol 2018-06 Yes 50mg Q6H Take 50 mg Met hodi (ULTRAM) 50 2-[address] mg tablet 14:50: every 6 Hospi ta 34 (six) l hours as needed for moderate pain. aspirin 2018-06 Yes 81mg QD Take 81 mg Meth gauri (ASPERDRINK 2-[address] ORAL) 14:50: every Hospita 34 evening. l sulfaSALAzi 2018-06 Yes 500mg Q.5D Take 500 M ethodi ne 2-[address] (AZULFIDINE 14:50: mouth 2 [facility] ) 500 mg 34 (two) l tablet times a day. sertraline 2018-06 Yes 100mg QD Take 1 Meth gauri (ZOLOFT) 1-[address] 100 MG 00:00: (100 mg Hospita tablet 00 total) by l mouth daily. sertraline 2018-06 Yes 100mg QD Take 1 Meth gauri (ZOLOFT) 1-[address] 100 MG 00:00: (100 mg Hospita tablet 00 total) by l mouth daily. ezetimibe 2018-06 Yes 10mg QD Take 10 mg Me [facility] (ZETIA) 10 0-[address] mg tablet 00:00: every Hospita 00 morning. l ezetimibe 2018-06 Yes 10mg QD Take 10 mg Me thodi (ZETIA) 10 0-[address] mg tablet 00:00: every Hospita 00 morning. l pantoprazol 2018-06 Yes [id number] TAKE 1 [facility] e 0-[address] (PROTONIX) 00:00: MOUTH Hospit a 20 MG EC 00 EVERY DAY l tablet pantoprazol 2018-06 Yes [id number] TAKE 1 [facility]i e 0-[address] (PROTONIX) 00:00: MOUTH Hospit a 20 MG EC 00 EVERY DAY l tablet Tramadol 2018-06 Yes Zoë 1 tablet Mem oria HCl 0-13 Najam as needed l 00:00: [place] 00 Tramadol 2018- Yes Zoë 1 tablet Mem oria HCl 0-13 Najam as needed l 00:00: [place] 00 Sulfasalazi 2019-0 Yes Zoë 3 tabs Me moria ne 9-24 Najam l 00:00: [place] 00 Sulfasalazi 2019-0 Yes Zoë 3 tabs Me moria ne 9-24 Najam l 00:00: [place] 00 levothyroxi 2019-0 Yes [id number] TAKE 1 [facility] ne 7-[address] (SYNTHROID, 00:00: MOUTH Hospi ta LEVOXYL) 50 00 EVERY DAY l mcg tablet TAKE 30 MINUTES BEFORE ALL OTHER PILLS levothyroxi 2018- Yes [id number] TAKE 1 [facility] ne 7-[address] (SYNTHROID, 00:00: MOUTH Hospi ta LEVOXYL) 50 00 EVERY DAY l mcg tablet TAKE 30 MINUTES BEFORE ALL OTHER PILLS fluticasone 2018- Yes [id number] 100ug QD 2 sprays [facility] propionate 4-09 ([address] (FLONASE) 00:00: total) by [facility] 50 00 Each Nare l mcg/actuati route on nasal daily. spray fluticasone Yes [id number] 100ug QD 2 sprays [facility] propionate 4-09 ([address] (FLONASE) 00:00: total) by [facility] 50 00 Each Nare l mcg/actuati route on nasal daily. spray Tramadol 2018-0 Yes Zoë 1 tablet Mem oria HCl 4-02 Najam as needed l 02:50: Tramadol 2018-0 Yes Zoë 1 tablet Mem oria HCl 4-02 Najam as needed l 02:50: Tramadol 2019-0 Yes Zoë 1 tablet Mem oria HCl 2-26 Najam as needed l 00:00: Sulfasalazi 2019-0 Yes Zoë 1 tablet Memoria ne 2-26 Najam l 00:00: Tramadol 2019-0 Yes Zoë 1 tablet Mem oria HCl 2-26 Najam as needed l 00:00: Sulfasalazi 2019-0 Yes Zoë 1 tablet Memoria ne 2-26 Najam l 00:00: apixaban 2018-0 Yes 5mg Take 2 Univers (ELIQUIS) 9-11 tablets by ity of 2.5 mg 00:00: mouth 2 [place] tablet 00 (two) Medical times Branch daily. apixaban 2018-0 Yes 5mg Take 2 Univers (ELIQUIS) 9-11 tablets by ity of 2.5 mg 00:00: mouth 2 [place] tablet 00 (two) Medical times Branch daily. apixaban 2018-0 Yes 5mg Take 2 Univers (ELIQUIS) 9-11 tablets by ity of 2.5 mg 00:00: mouth 2 [place] tablet 00 (two) Medical times Branch daily. apixaban 2018-0 Yes 5mg Take 2 Univers (ELIQUIS) 9-11 tablets by ity of 2.5 mg 00:00: mouth 2 [place] tablet 00 (two) Medical times Branch daily. apixaban 2018-0 Yes 5mg Take 2 Univers (ELIQUIS) 9-11 tablets by ity of 2.5 mg 00:00: mouth 2 [place] tablet 00 (two) Medical times Branch daily. apixaban 2018-0 Yes 5mg Take 2 Univers (ELIQUIS) 9-11 tablets by ity of 2.5 mg 00:00: mouth 2 [place] tablet 00 (two) Medical times Branch daily. Immunizations Ordered Immunization Filled Immunization Date Status Commen ts Source Name Name Influenza Virus 2022-03-22 Completed Universit y of Vaccine 00:00:00 [facility] Influenza Virus 2022-03-22 Completed Universit y of Vaccine 00:00:00 [facility] Influenza Virus 2022-03-22 Completed Universit y of Vaccine 00:00:00 [facility] Influenza Virus 2022-03-22 Completed Universit y of Vaccine 00:00:00 [facility] Influenza Virus 2022-03-22 Completed Universit y of Vaccine 00:00:00 [facility] TDAP 2022-01-22 Completed University of 00:00:00 [facility] Zoster Vaccine 2022-01-22 Completed University of Recombinant 00:00:00 [facility] TDAP 2022-01-22 Completed University of 00:00:00 [facility] Zoster Vaccine 2022-01-22 Completed University of Recombinant 00:00:00 [facility] TDAP 2022-01-22 Completed University of 00:00:00 [facility] Zoster Vaccine 2022-01-22 Completed University of Recombinant 00:00:00 [facility] TDAP 2022-01-22 Completed University of 00:00:00 [facility] Zoster Vaccine 2022-01-22 Completed University of Recombinant 00:00:00 [facility] TDAP 2022-01-22 Completed University of 00:00:00 [facility] Zoster Vaccine 2022-01-22 Completed University of Recombinant 00:00:00 [facility] TDAP 2022-01-22 Completed University of 00:00:00 [facility] Zoster Vaccine 2022-01-22 Completed University of Recombinant 00:00:00 [facility] Pneumococcal Vaccine, 2021-10-19 Completed [place] Polysaccharide 00:00:00 Pneumococcal 2021-10-19 Completed University o f Polysaccharide, 00:00:00 [place] [facility] ical PPSV23 (PNEUMOVAX) Branch Pneumococcal 2021-10-19 Completed University o f Polysaccharide, 00:00:00 [place] Med ical PPSV23 (PNEUMOVAX) Branch Pneumococcal 2021-10-19 Completed University o f Polysaccharide, 00:00:00 [place] Med ical PPSV23 (PNEUMOVAX) Branch Pneumococcal 2021-10-19 Completed University o f Polysaccharide, 00:00:00 [place] [facility] ical PPSV23 (PNEUMOVAX) [place] Pneumococcal 2021-10-19 Completed University o f Polysaccharide, 00:00:00 [place] Med ical PPSV23 (PNEUMOVAX) Branch Pneumococcal 2021-10-19 Completed University o f Polysaccharide, 00:00:00 [place] Med ical PPSV23 (PNEUMOVAX) Branch FLUZONE HIGH-DOSE PF 2018-04-15 Completed Meth odist 00:00:00 [facility] Influenza Virus 2018-04-15 Completed Universit y of Vaccine 00:00:00 [facility] Influenza Virus 2018-04-15 Completed Universit y of Vaccine 00:00:00 [facility] Influenza Virus 2018-04-15 Completed Universit y of Vaccine 00:00:00 [facility] Influenza Virus 2018-04-15 Completed Universit y of Vaccine 00:00:00 [facility] Influenza Virus 2018-04-15 Completed Universit y of Vaccine 00:00:00 [facility] Influenza Virus 2018-04-15 Completed Universit y of Vaccine 00:00:00 [facility] FLUZONE HIGH-DOSE PF 2018-04-15 Completed Meth odist 00:00:00 Hospital Influenza High Dose 2017-04-23 Completed Unive rsity of 00:00:00 [facility] Influenza High Dose 2017-04-23 Completed Unive rsity of 00:00:00 [facility] Influenza High Dose 2017-04-23 Completed Unive rsity of 00:00:00 [facility] Influenza High Dose 2017-04-23 Completed Unive rsity of 00:00:00 [facility] Influenza High Dose 2017-04-23 Completed Unive rsity of 00:00:00 [facility] Influenza High Dose 2017-04-23 Completed Unive rsity of 00:00:00 [facility] Vital Signs Vital Name Observation Time Observation Value Comments Source Systolic blood 2022-03-27 18:10:00 109 mm[Hg] Univer sity of pressure [facility] Diastolic blood 2022-03-27 18:10:00 70 mm[Hg] Unive rsity of pressure [facility] Heart rate 2022-03-27 18:10:00 62 /min [facility] Body temperature 2022-03-27 18:10:00 36.72 [place] Univ ersity of [facility] Body height 2022-03-27 18:10:00 152[facility] [place] [facility] Body weight 2022-03-27 18:10:00 58.968 kg Universi [facility] [place] [facility] BMI 2022-03-27 18:10:00 25.39 kg/m2 [facility] [place] [facility] Oxygen saturation in 2022-03-27 18:10:00 93 /min University of Arterial blood by [facility] Pulse oximetry Branch Systolic blood 2022-02-28 14:36:00 124 mm[Hg] Univer sity of pressure [place] [facility] Diastolic blood 2022-02-28 14:36:00 74 mm[Hg] Unive rsity of pressure [place] [facility] Heart rate 2022-02-28 14:36:00 69 /min [facility] [place] [facility] [place] Body temperature 2022-02-28 14:36:00 36.61 [place] Univ ers[facility] [place] [facility] Respiratory rate 2022-02-28 14:36:00 18 /min Univ ersity of [place] [facility] Body height 2022-02-28 14:36:00 152.4 cm [facility] [place] [facility] Body weight 2022-02-28 14:36:00 59.104 kg [facility]i [facility] [place] [facility] BMI 2022-02-28 14:36:00 25.45 kg/m2 [facility] [place] [facility] Oxygen saturation in 2022-02-28 14:36:00 96 /min room air University of Arterial blood by [facility] Pulse oximetry Branch Systolic blood 2021-10-19 19:07:00 133 mm[Hg] Natalya Herediaybcolt pressure Diastolic blood 2021-10-19 19:07:00 73 mm[Hg] Kelse y Seybold pressure Heart rate 2021-10-19 19:07:00 71 /min Natalya abarcabolucinda Body temperature 2021-10-19 19:07:00 36.78 Macie Mesha ey Seybold Respiratory rate 2021-10-19 19:07:00 16 /min Mesha ey Seybold Body height 2021-10-19 19:07:00 152.4 cm Natlaya abarcabolucinda Body weight 2021-10-19 19:07:00 60.782 kg Natalya Urbina eybold BMI 2021-10-19 19:07:00 26.17 kg/m2 Natalya Urbina eybold Height 2020-04-29 15:30:00 [facility] [place] Diastolic (mm Hg) 2020-04-29 15:30:00 Mem orial [place] Systolic (mm Hg) 2020-04-29 15:30:00 Abhilash rial [place] Weight 2020-04-29 15:30:00 [facility] Height 2019-12-18 14:30:00 [facility] [place] Diastolic (mm Hg) 2019-12-18 14:30:00 Mem orial Da Systolic (mm Hg) 2019-12-18 14:30:00 Abhilash rial Da Weight 2019-12-18 14:30:00 [facility] [place] Height 2019-10-09 15:00:00 [facility] Diastolic (mm Hg) 2019-10-09 15:00:00 [facility] [place] Systolic (mm Hg) 2019-10-09 15:00:00 [facility] [place] Weight 2019-10-09 15:00:00 [facility] Height 2019-07-07 20:15:00 [facility] Diastolic (mm Hg) 2019-07-07 20:15:00 [facility] Systolic (mm Hg) 2019-07-07 20:15:00 [facility] [place] Weight 2019-07-07 20:15:00 [facility] Height 2019-05-29 15:00:00 [facility] [place] Diastolic (mm Hg) 2019-05-29 15:00:00 Mem [facility] [place] Systolic (mm Hg) 2019-05-29 15:00:00 Abhilash rial [place] Weight 2019-05-29 15:00:00 [facility] [place] Height 2019-05-01 14:45:00 [facility] Diastolic (mm Hg) 2019-05-01 14:45:00 Mem orial Da Systolic (mm Hg) 2019-05-01 14:45:00 Abhilash rial [place] Weight 2019-05-01 14:45:00 [facility] [place] Height 2019-04-03 15:00:00 [facility] Diastolic (mm Hg) 2019-04-03 15:00:00 [facility] [place] Systolic (mm Hg) 2019-04-03 15:00:00 Abhilash rial [place] Weight 2019-04-03 15:00:00 [facility] Diastolic (mm Hg) 2019-03-20 13:30:00 [facility] [place] Systolic (mm Hg) 2019-03-20 13:30:00 Abhilash rial [place] Weight 2019-03-20 13:30:00 [facility] Height 2019-02-27 18:20:00 [facility] Diastolic (mm Hg) 2019-02-27 18:20:00 Mem orial Da Systolic (mm Hg) 2019-02-27 18:20:00 Abhilash rial [place] Weight 2019-02-27 18:20:00 [facility] [place] Height 2019-01-05 14:15:00 [facility] [place] Diastolic (mm Hg) 2019-01-05 14:15:00 [facility] [place] Systolic (mm Hg) 2019-01-05 14:15:00 Abhilash rial [place] Weight 2019-01-05 14:15:00 [facility] [place] Height 2018-09-18 18:30:00 [facility] [place] Diastolic (mm Hg) 2018-09-18 18:30:00 [facility] [place] Systolic (mm Hg) 2018-09-18 18:30:00 Abhilash rial [place] Weight 2018-09-18 18:30:00 [facility] [place] Height 2018-05-21 15:45:00 [facility] Diastolic (mm Hg) 2018-05-21 15:45:00 Mem [facility] Systolic (mm Hg) 2018-05-21 15:45:00 Abhilash rial [place] Weight 2018-05-21 15:45:00 [facility] [place] Procedures Procedure Date / Time Performed Performing Clinician Sourc e POCT MOLECULAR FLU 2022-03-27 18:05:00 Pattie Ram [facility] CONSENT/REFUSAL FOR 2022-03-27 17:41:57 Doctor Unassigned, No Un [facility] DIAGNOSIS AND Name Medical Branch TREATMENT [id number] 2021-07-31 00:00:00 CUEJO.01 [facility] [id number] 2021-07-31 00:00:00 CUEJO.01 [facility] [id number] 2021-07-25 00:00:00 NASLI.01 [facility] Plan of Care Planned Activity Planned Date Details Comments Source Future Scheduled 2022-04-26 HEPATITIS B VACCINES Met [facility] Test 01:48:38 (1 of 3 - 3-dose series) [code = HEPATITIS B VACCINES (1 of 3 - 3-dose series)] Future Scheduled 2022-04-26 COVID-19 VACCINE (#1) Me [facility] Test 01:48:38 [code = COVID-19 VACCINE (#1)] Future Scheduled 2022-04-26 65[facility] Test 01:48:38 VACCINE (1 - PCV) [code = 65+ PNEUMOCOCCAL VACCINE (1 - PCV)] Future Scheduled 2022-04-26 Hepatitis C screening Me [facility] Test 01:48:38 (procedure) [code = 292208404] Future Scheduled 2022-04-26 SHINGLES [facility]ACCINES (1 [facility] 01:48:38 of 2) [code = SHINGLES VACCINES (1 of 2)] Future Scheduled 2022-04-26 COLONOSCOPY SCREENING Me [facility] Test 01:48:38 [code = COLONOSCOPY SCREENING] Future Scheduled 2022-04-26 INFLUENZA VACCINE [facility] Test 01:48:38 [code = INFLUENZA VACCINE] Future Scheduled 65+ [facility]UMOCOCCAL [facility] Test VACCINE (1 of 4 - PCV13) [code = 65+ PNEUMOCOCCAL VACCINE (1 of 4 - PCV13)] Future Scheduled COVID-19 VACCINE (1) Met [facility] Test [code = COVID-19 VACCINE (1)] Future Scheduled Hepatitis C screening Me [facility] Test (procedure) [code = 380405861] Future Scheduled COLONOSCOPY SCREENING [facility] Test [code = COLONOSCOPY SCREENING] Future Scheduled SHINGLES VACCINES (#1) [facility] [code = SHINGLES VACCINES (#1)] Future Scheduled [facility] S[facility]EN[facility] [code = BREAST CANCER SCREENING] Future Scheduled INFLUENZA VACCINE [facility] Test [code = INFLUENZA VACCINE] Encounters Start End Encounter Admission Attending Care Care Encounter Source Date/Time Date/Time Type Type Clinicians Facility Department ID 2022-05-24 Outpatient [id number] Memoria 19:54:10 [id number] 63-2VT4-FQ2 863-4AE5- B l -CQ84-MX6 [id number] M59-[id number] [place] [id number] Outpatient [id number] Memoria 12:50:29 [id number] 91-6OA1-4K4 991-4EF6- 8 l -2K1H-F9H A-B6S5E8VIE F0V-N3B5T2 Da 1Q3LUK5L8 5B3 FAA5B3 2022-02-28 Outpatient [id number] CFFA 99BC-2 Memoria 09:31:20 2830-43F7 30-30E4-GYP 830-43F7- B l -BCA4-B8E 4-K6I2W6E81 CA4-B8E9D6 Da [id number] F20 E30F20 2021-04-06 Outpatient lc.[email or web address] [facility] [id number] [facility] 18:02:59 11782 [facility] 2021-01-30 Outpatient [id number] Memoria 11:21:51 76T3-9523 C7-4410-97D 0R0-9417- 9 l -97DF-9F7 F-6Z21J8I6P 7DF-9F73C3 Da 3Z7Y4P044 376 O4N850 2022-06-04 2022-06-04 Outpatient NATALYA STOVALL [id number] Natalya 09:45:00 09:45:00 ELIZABETH ramirez 2022-05-23 2022-05-23 Outpatient Pavithra CALHOUN [facility] [id number] Univers 15:00:00 15:00:00 BELNIDA leti [facility] 2022-05-03 2022-05-03 Outpatient Pavithra HUANG [facility] [id number] Univers 14:00:00 14:00:00 ELLE SINGLETON [facility] 2022-04-24 2022-04-24 Outpatient NATALYA MOY [id number] Natalya 13:30:00 13:30:00 RADHA ramirez 2022-04-13 2022-04-13 Outpatient ANITA GRANDE [id number] Natalya 00:00:00 00:00:00 MD Francisco DANIELS 2022-04-07 2022-04-07 Outpatient ATULMEGHANA NATALYA GRANDE [id number] Natalya 00:00:00 00:00:00 MD Francisco DANIELS 2022-04-04 2022-04-04 Telephone [facility] 1.2.840.114 [id number] Univers 00:00:00 00:00:00 Pattie BARDALES 350.1.13.10 ity of IALTY 4.2.7.2.686 [facility] [id number] [address] [facility] 2022-03-30 2022-03-30 Outpatient NATALYA KENYON [id number] Natalya 10:50:00 10:50:00 MAXINE ramirez 2022-03-28 2022-03-28 Outpatient Pavithra [facility] [id number] Univers 14:00:00 14:00:00 ANTHONY he [facility] 2022-03-27 2022-03-27 [facility] 1.2.840.114 [id number] Univers 13:37:54 23:59:00 Encounter Pattie CHOWDHURY 350.1.13.10 ity of CARE 4.2.7.2.686 [facility] AT [id number] Wy ghanshyam MEJIA 7 [facility] 2022-03-27 2022-03-27 Outpatient Pavithra [facility] [id number] Univers 13:00:00 13:33:55 PATTIE he [facility] 2022-03-27 2022-03-27 Office [facility] 1.2.104.102 [id number] Univers 13:00:00 13:30:00 Visit Pattie BARDALES 350.1.13.10 ity of [place] 4.2.7.2.686 [facility] [id number] [address] DIABETES CLINIC 2022-03-27 2022-03-27 Orders Doctor BRANDT 1.2.840.114 [id number] Univers 00:00:00 00:00:00 Only Unassigned, FISH 350.1.13.10 ity [facility] 4.2.7.2.686 Manav as [id number] [place] [address] [place] 2022-03-26 2022-03-26 Outpatient Pavithra MARIE [facility] [id number] Univers 14:30:00 14:30:00 DERRICK ity [facility] 2022-03-26 2022-03-26 Outpatient NATALYA STOVALL [id number] Natalya 11:15:00 11:15:00 ELIZABETH Leviol james 2022-03-25 2022-03-25 Outpatient NATALYA STOVALL [id number] Natalya 00:00:00 00:00:00 ELIZABETH ramirez 2022-03-13 2022-03-13 Outpatient ANITA GRANDE [id number] Natalya 00:00:00 00:00:00 MD Francisco DANIELS 2022-03-06 2022-03-06 Outpatient LAB90 NATALYA GRANDE [id number] Natalya 10:20:00 10:20:00 Francisco ramirez 2022-03-05 2022-03-05 Outpatient ANITA GRANDE [id number] Natalya 00:00:00 00:00:00 MD Francisco DANIELS 2022-03-02 2022-03-02 Outpatient NATALYA STOVALL [id number] Natalya 00:00:00 00:00:00 ELIZABETH ramirez 2022-02-28 2022-02-28 Office Iván [facility] 1.2.840.114 [id number] Univers 10:00:00 10:35:03 Visit [facility] 350.1.13.10 it y of [facility] 4.2.7.2.686 Lauryn ANGEL [id number] [address] 2022-02-28 2022-02-28 Outpatient Pavithra MINOR [facility] [id number] Univers 10:00:00 10:35:03 [facility] 2022-02-28 2022-02-28 Outpatient Pavithra MINOR [facility] [id number] Univers 10:00:00 10:00:00 [facility] 2022-02-23 2022-02-23 Outpatient NATALYA MELARA [id number] Natalya 11:00:00 11:00:00 ELIS Seybol d 2022-02-20 2022-02-20 Outpatient NATALYA CALDERON [id number] Natalya 11:00:00 11:00:00 BLANCA Seybol d 2022-02-12 2022-02-12 Outpatient NATALYA VELÁSQUEZ [id number] Natalya 15:15:00 15:15:00 JEREL Seybol d 2022-02-07 2022-02-07 Outpatient NATALYA CORTES [id number] Natalya 11:15:00 11:15:00 SALMAN Seybol d 2022-01-31 2022-01-31 Outpatient NATALYA MOY [id number] Natalya 00:00:00 00:00:00 RADHA Seybol d 2022-01-30 2022-01-30 Outpatient NATALYA GRANDE [id number] Natalya 09:45:00 09:45:00 Seybol d 2022-01-29 2022-01-29 Outpatient NATALYA GRANDE [id number] Natalya 13:00:00 13:00:00 Seybol d 2022-01-29 2022-01-29 Outpatient NATALYA VELÁSQUEZ [id number] Natalya 11:15:00 11:15:00 JEREL Seybol d 2022-01-26 2022-01-26 Outpatient NATALYA CAVAZOS [id number] Natalya 15:00:00 15:00:00 YADY Seybol d 2022-01-25 2022-01-25 Outpatient RIMMA_RICKI EDMOND 829 Enmanuelagopavithra 00:00:00 00:00:00 HN [id number] da [facility] 2022-01-24 2022-01-24 Outpatient NATALYA VERAS [id number] Natalya 14:25:00 14:25:00 ERNIE Seybol d 2022-01-23 2022-01-23 Outpatient NATALYA CALDERON [id number] Natalya 16:30:00 16:30:00 BLANCA Seybol d 2022-01-23 2022-01-23 Outpatient CHRISTEN NATALYA GRANDE [id number] Natalya 11:15:00 11:15:00 JEREL Seybol d 2022-01-23 2022-01-23 Outpatient EDA NATALYA GRANDE [id number] Natalya 09:55:00 09:55:00 ERNIE Seybol d 2022-01-23 2022-01-23 Outpatient EDA NATALYA GRANDE [id number] Natalya 09:55:00 09:55:00 ERNIE Seybol d 2022-01-22 2022-01-22 Outpatient LAB59 NATALYA GRANDE [id number] Natalya 15:40:00 15:40:00 Seybol d 2022-01-22 2022-01-22 Outpatient NATALYA GRANDE [id number] Natalya 14:35:00 14:35:00 Seybol d 2022-01-22 2022-01-22 Office FERNIE MOY 1.2.840.114 [id number] Natalya 14:15:00 14:15:00 Visit RADHA 350.1.13.13 Se patrick 1.2.7.2.686 [id number] 2022-01-22 2022-01-22 Outpatient DEVINNATALYA [id number] Natalya 00:00:00 00:00:00 MARTELL Flores ld 2022-01-22 2022-01-22 Outpatient MOYNATALYA [id number] Natalya 00:00:00 00:00:00 RADHA Seybol d 2022-01-22 2022-01-22 Orders Doctor KARLY 1.2.840.114 [id number] Univers 00:00:00 00:00:00 Only Unassigned, FISH 350.1.13.10 ity of [place] [facility] 4.2.7.2.686 Manav as [id number] [facility] [address] 2022-01-19 2022-01-19 Outpatient NATALYA MARRERO [id number] aNtalya 14:45:00 14:45:00 ERICA Seybol d 2022-01-10 2022-01-10 Outpatient EDA NATALYA GRANDE [id number] Natalya 14:25:00 14:25:00 ERNIE Seybol d 2022-01-10 2022-01-10 Outpatient SEBASTIAN NATALYA GRANDE [id number] Natalya 09:30:00 09:30:00 SALMAN Seybol d 2022-01-09 2022-01-09 Outpatient EDA NATALYA GRANDE [id number] Natalya 14:10:00 14:10:00 ERNIE Seybol d 2022-01-02 2022-01-02 Outpatient MOYNATALYA [id number] Natalya 14:15:00 14:15:00 RADHA Seybol d 2022-01-02 2022-01-02 Outpatient LANERafaelNATALYA [id number] Natalya 00:00:00 00:00:00 KATHY Seybo ld 2022-01-01 2022-01-01 Outpatient NATALYA GARCIA [id number] Natalya 11:30:00 11:30:00 SAMIM Seybol d 2021-12-29 2021-12-29 Office SUSANNE Kenyon 1.2.840.114 [id number] Natalya 13:20:00 13:30:00 Visit Maxine Sanchez 350.1.13.13 gissel 1.2.7.2.686 [id number] 2021-12-29 2021-12-29 Outpatient MOYNATALYA [id number] Natalya 00:00:00 00:00:00 RADHA Seybol d 2021-12-27 2021-12-27 Outpatient LAB90 NATALYA GRANDE [id number] Natalya 12:45:00 12:45:00 Seybol d 2021-12-26 2021-12-26 Outpatient IOZ88-PRC NATALYA GRANDE [id number] Natalya 15:00:00 15:00:00 Seybol d 2021-12-26 2021-12-26 Office JOHN VELÁSQUEZ 1.2.840.114 [id number] Natalya 13:30:00 13:30:00 Visit [facility] 350.1.13.13 Se ybold 1.2.7.2.686 [id number] 2021-12-19 2021-12-19 Office ELY Razo 1.2.840.114 [id number] Natalya 14:20:00 14:40:00 Visit Kathy CHONG 350.1.13.13 S eybold 1.2.7.2.686 [id number] 2021-12-19 2021-12-19 Outpatient TOMOGRAPHY, NATALYA GRANDE [id number] Natalya 14:35:00 14:35:00 CK Seybol d 2021-12-06 2021-12-06 Outpatient NATALYA STOVALL [id number] Natalya 00:00:00 00:00:00 FAYYAZ Seybol d 2021-12-06 2021-12-06 Outpatient NATALYA STOVALL [id number] Natalya 00:00:00 00:00:00 FAYYAZ Seybol d 2021-12-05 2021-12-05 Outpatient MOY, NATALYA GRANDE [id number] Natalya 00:00:00 00:00:00 RADHA Seybol d 2021-12-04 2021-12-04 Office EVER Stovall 1.2.713.911 [id number] Natalya 11:30:00 12:00:00 Visit edilma [facility] 350.1.13.13 Seybold DIAGNOSTI 1.2.7.2.686 [facility] [id number] 2021-12-04 2021-12-04 Outpatient MOY, NATALYA GRANDE [id number] Natalya 00:00:00 00:00:00 RADHA Seybol d 2021-11-23 2021-11-23 Outpatient MOY, NATALYA GRANDE [id number] Natalya 14:30:00 14:30:00 RADHA Seybol d 2021-11-23 2021-11-23 Outpatient MOYNATALYA SEPULVEDA [id number] Natalya 00:00:00 00:00:00 RADHA Seybol d 2021-11-23 2021-11-23 Outpatient MOYNATALYA [id number] Natalya 00:00:00 00:00:00 RADHA Seybol d 2021-11-22 2021-11-22 Outpatient NATALYA NG [id number] Natalya 09:00:00 09:00:00 JINU Seybol d 2021-11-14 2021-11-14 Outpatient R ASMITA- [facility] [id number] Univers 15:30:00 15:30:00 neri PEREZ [facility] 2021-11-01 2021-11-01 Outpatient MOY, NATALYA GRANDE [id number] Natalya 00:00:00 00:00:00 RADHA Seybol d 2021-10-27 2021-10-27 Outpatient MOY, NATALYA GRANDE [id number] Natalya 11:15:00 11:15:00 RADHA Seybol d 2021-10-26 2021-10-26 Outpatient MOY, NATALYA GRANDE [id number] Natalya 00:00:00 00:00:00 RADHA Seybol d 2021-10-25 2021-10-25 Outpatient LAB90 NATALYA GRANDE [id number] Natalya 11:00:00 11:00:00 Seybol d 2021-10-24 2021-10-24 Outpatient LAB90 NATALYA GRANDE [id number] Natalya 12:10:00 12:10:00 Seybol d 2021-10-19 2021-10-19 Office MOY, FERNIE 1.2.840.114 [id number] Natalya 14:30:00 14:30:00 Visit RADHA 350.1.13.13 Se ybold 1.2.7.2.686 [id number] 2021-10-05 2021-10-05 Outpatient MOYNATALYA [id number] Natalya 11:00:00 11:00:00 RADHA Seybol d 2021-10-02 2021-10-02 Outpatient PREZANATALYA Urbina [id number] Natalya 11:15:00 11:15:00 ERICA Seybol d 2021-09-29 2021-09-29 Outpatient NATALYA KLEIN [id number] Natalya 15:30:00 15:30:00 PATRICIO ramirez 2021-08-25 2021-08-25 Refill Iván, [facility] 1.2.840.114 [id number] Univers 00:00:00 00:00:00 Anthony PRIMARY 350.1.13.10 [place] [id number] Wy dical [address] 2021-08-12 2021-08-12 Refill Iván, [facility] 1.2.840.114 [id number] Univers 00:00:00 00:00:00 Anthony PRIMARY 350.1.13.10 [place] [id number] Wy dical [address] 2021-07-25 2021-08-02 Inpatient EM Kiko HCACL MEDI.01 [id number] [facility] 22:22:00 21:21:00 Luz Maria Wilson 74 [facility] 2021-07-30 2021-07-30 Outpatient Kiko HCAMN MLAB [id number] [facility] 01:15:00 01:15:00 Luz Maria Wilson 55 [facility] 2021-07-09 2021-07-18 Inpatient EM Jorgensen, HCAMN MAS [id number] [facility] 22:41:00 18:12:00 Wang 45 [facility] 2021-07-10 2021-07-10 Outpatient Jorgensen, YASMINECL LABO [id number] [facility] 01:00:00 01:00:00 Wang 54 [facility] 2021-07-05 2021-07-05 Inpatient JOHN HillsMorgan, YASMINECL [facility] [id number] [facility] 11:30:00 11:30:00 Smith 65 [facility] 2021-05-05 2021-05-05 Outpatient JOHN Mora, HCAMN MCTS [id number] [facility] 13:51:00 13:51:00 Smith 28 [facility] 2021-04-04 2021-04-04 Refmarquis Minor [facility] 1.2.840.114 [id number] Univers 00:00:00 00:00:00 Anthony PRIMARY 350.1.13.10 [place] [id number] Wy dical [address] 2021-04-04 2021-04-04 [facility] 1.2.840.114 [id number] Univers 00:00:00 00:00:00 Breonna A PRIMARY 350.1.13.10 [place] [id number] Wy dical 086 [address] 2021-02-06 2021-02-06 [facility] 1.2.840.114 [id number] Univers 00:00:00 00:00:00 Anthony PRIMARY 350.1.13.10 [place] [id number] Wy dicor [address] [place] 2021-01-30 2021-01-30 Outpatient JOHN Maldonado, [facility] MRAD [id number] [facility] 11:20:00 11:20:[address] 2021-01-03 2021-01-03 Outpatient Pavithra [facility] [id number] Univers 11:15:00 11:15:00 BREONNA leti [facility] 2021-01-03 2021-01-03 Outpatient Pavithra [facility] [id number] Univers 11:15:00 11:15:00 BREONNA leti [facility] 2020-11-25 2020-11-25 Travel 1.2.840.1 1.2.607.394 [id number] Methodi 00:00:00 00:00:[address] 3.430.2.7 0.2.7.3.698 Ho spita .3.711319 084.8 l .8 2020-11-22 2020-11-22 [place] [facility] 1.2.840.114 [id number] 00:00:00 00:00:00 Anthony PRIMARY 350.1.13.10 CARE 4.2.7.2.686 PAVILLION [id number] 2020-11-22 2020-11-22 Travel 1.2.840.1 1.2.886.308 [id number] Methodi 00:00:00 00:00:[address] 3.430.2.7 0.2.7.3.698 Ho spita .3.073782 084.8 l .8 2020-11-22 2020-11-22 [facility] 1.2.840.114 [id number] [facility] [place] 00:00:00 00:00:00 Anthony PRIMARY 350.1.13.10 it [place] [id number] Wy dic[address] 2020-11-08 2020-11-08 [facility] 1.2.840.114 [id number] 00:00:00 00:00:00 [facility] PRIMARY 350.1.13.10 CARE 4.2.7.2.686 PAVILLION [id number] 388 2020-11-08 2020-11-08 [facility] 1.2.840.114 [id number] [facility] 00:00:00 00:00:00 [facility] PRIMARY 350.1.13.10 it [place] [id number] [address] 2020-10-25 2020-10-25 [facility] 1.2.840.114 [id number] 00:00:00 00:00:00 Anthony PRIMARY 350.1.13.10 CARE 4.2.7.2.686 PAVILLION [id number] [facility] 2020-10-25 2020-10-25 [facility] 1.2.840.114 [id number] [facility] 00:00:00 00:00:00 Anthony PRIMARY 350.1.13.10 it [place] [id number] Wy dical [address] 2020-10-20 2020-10-20 Travel 1.2.840.1 1.2.343.501 [id number] Methodi 00:00:00 00:00:[address] 3.430.2.7 0.2.7.3.698 Ho spita .3.637978 084.8 l .8 2020-10-18 2020-10-18 Travel 1.2.840.1 1.2.494.125 7549 [id number] Methodi 00:00:00 00:00:[address] 3.430.2.7 0.2.7.3.698 Ho spita .3.255239 084.8 l .8 2020-10-13 2020-10-13 [employer] Pcp-Lab [facility] 1.2.840.114 [id number] 10:56:27 11:11:27 Visit PRIMARY 350.1.13.10 CARE 4.2.7.2.686 PAVILLION [id number] [facility] 2020-10-13 2020-10-13 [employer] Pcp-Lab [facility] 1.2.840.114 [id number] [facility] 10:56:27 11:11:27 Visit Pathology PRIMARY 350.1.13.10 it[place] [id number] Wy dical [address] 2020-10-13 2020-10-13 Office Iván [facility] 1.2.840.114 [id number] [facility] 10:06:04 10:37:28 Visit Anthony PRIMARY 350.1.13.10 it y of [place] [id number] Wy dical [address] 2020-10-13 2020-10-13 Outpatient R IVÁN [facility] [id number] Univers 10:00:00 10:00:00 ANTHONY ity of [facility] 2020-10-13 2020-10-13 Telephone Iván [facility] 1.2.840.114 [id number] Univers 00:00:00 00:00:00 Anthony PRIMARY 350.1.13.10 [place] [id number] [facility] [address] [place] 2020-10-12 2020-10-12 Outpatient Pavithra ALBARRAN [facility] [id number] Univers 00:00:00 00:00:00 VALERIE [facility] 2020-10-06 2020-10-06 [employer] Pcp-Lab [facility] 1.2.840.114 [id number] Univers 13:21:50 13:36:50 Visit Iván Anthony PRIMARY 350.1.13.10 it[place] of [place] [id number] [facility] [address] [place] 2020-10-06 2020-10-06 Outpatient Pavithra [facility] [id number] Univers 13:15:00 13:15:00 [facility] 2020-10-05 2020-10-05 Telephone [facility] 1.2.043.908 [id number] Univers 00:00:00 00:00:00 Breonna A PRIMARY 350.1.13.10 it [place] [id number] [facility] [address] [place] 2020-10-03 2020-10-03 Outpatient LUKAS Davis HCACL [id number] [facility] 18:02:40 18:02:[address] [place] [address] 2020-09-29 2020-09-29 Outpatient Pavithra [facility] [id number] Univers 11:00:00 11:00:00 [facility] 2020-09-29 2020-09-29 Telephone [facility] [id number] Univers 00:00:00 00:00:00 Breonna A PRIMARY 350.1.13.10 it [place] [id number] Wy dical [address] 2020-09-28 2020-09-28 [employer] Pcp-Lab [facility] 1.2.840.114 [id number] Univers 12:08:15 13:16:21 Visit Breonna Womack PRIMARY 350.1.13.10 ity of CARE 4.2.7.2.686 Lauryn SORTOILLION [id number] Wy dical [address] 2020-09-28 2020-09-28 Office [facility] 1.2.840.114 [id number] Univers 11:21:18 12:08:33 Visit Breonna Pompa PRIMARY 350.1.13.10 it y of CARE 4.2.7.2.686 Lauryn PICKENSON [id number] Wy dicor [address] 2020-09-28 2020-09-28 Outpatient R VU [facility] [id number] Univers 11:15:00 11:15:00 BREONNA he [facility] 2020-09-20 2020-09-20 Outpatient R DEION [facility] [id number] Univers 00:00:00 00:00:00 VALERIE ity [facility] 2020-09-16 2020-09-16 Telephone Iván [facility] [id number] Univers 00:00:00 00:00:00 Anthony PRIMARY 350.1.13.10 it y of CARE 4.2.7.2.686 Lauryn urbina PAVILLION [id number] [facility] [address] 2020-09-12 2020-09-12 Mu Davis [facility] 1.2.840.114 [id number] [facility] Univers 00:00:00 00:00:00 Abelardo J PRIMARY 350.1.13.10 it y of CARE 4.2.7.2.686 Lauryn urbina PAVILLION [id number] Wy dical [address] 2020-09-09 2020-09-09 [facility] 1.2.840.114 [id number] Univers 09:45:47 23:59:00 Encounter Breonna Lee HEALTH 350.1.13.10 ity of CLINICS 4.2.7.2.686 Lauryn s [id number] [facility] [address] 2020-09-09 2020-09-09 [facility] 1.2.840.114 [id number] Univers 09:10:03 09:44:00 Encounter Breonna Lee HEALTH 350.1.13.10 it[place] CL[place] [id number] [facility] [address] 2020-09-09 2020-09-09 [facility] 1.2.840.114 [id number] Univers 09:00:00 09:09:00 Encounter Breonna Lee HEALTH 350.1.13.10 it[place] of CL[place]ICS [place] [id number] [facility] [address] 2020-09-09 2020-09-09 Outpatient Pavithra WOMACK [facility] [id number] Univers 00:00:00 00:00:00 BREONNA he [facility] 2020-09-07 2020-09-07 Refmarquis Davis [facility] 1.2.840.114 [id number] Univers 00:00:00 00:00:00 Abelardo J PRIMARY 350.1.13.10 it [place] of [place] 4[place]2.[place] [id number] Wy dical [address] 2020-08-30 2020-08-30 Office [facility] 1.2.840.114 [id number] Univers 11:03:30 11:33:30 Visit Breonna A PRIMARY 350.1.13.10 it y of C[place] 4.2.7.2.[place] [id number] Wy dical [address] 2020-08-30 2020-08-30 Outpatient Pavithra WOMACK [facility] [id number] Univers 11:15:00 11:15:00 BREONNA he [facility] 2020-08-29 2020-08-29 Patient [facility] [facility] [id number] Univers 00:00:00 00:00:00 Outreach Dio PRIMARY [id number] i ty of [id number] [phone] Wy dical [address] 2020-08-24 2020-08-24 Refill [facility] [id number] Univers 00:00:00 00:00:00 Abelardo J PRIMARY [id number] it y [id number] [id number] Wy dical [address] 2020-08-22 2020-08-22 Telephone [facility] [id number] Univers 00:00:00 00:00:00 Anthony PRIMARY [id number] it y of [id number] [phone] Wy dical [address] [place] 2020-08-17 2020-08-17 Office Iván [facility] [id number] [facility] [place] 09:29:58 10:16:07 Visit Anthony [facility] [id number] it y of CARE [id number] [place] PAVILLION [phone] Wy dical [address] 2020-08-17 2020-08-17 Outpatient R IVÁN [facility] [id number] [facility] 09:30:00 09:30:00 ANTHONY ity of [facility] 2020-07-15 2020-07-15 Outpatient [facility] [id number] Memoria 11:31:00 11:31:00 Rheumatol Rheumatolog l montez y [facility] 2020-07-13 2020-07-13 [employer]ice Pcp-Lab [facility] [id number] [facility] 14:05:38 14:20:38 Visit Anthony Minor [facility] [id number] ity [id number] [id number] Wy dical [address] 2020-07-13 2020-07-13 Office [facility] 1.2.840.114 [id number] Univers 13:05:43 14:04:33 Visit Abelardo J PRIMARY [id number] [facility] [id number] Lauryn ANGEL [id number] [address] 2020-07-13 2020-07-13 Outpatient Pavithra DYEDAVIS, [facility] [id number] Univers 13:00:00 13:00:00 [facility] 2020-07-13 2020-07-13 Outpatient Pavithra DYEDAVIS [facility] [id number] Univers 13:00:00 13:00:00 [facility] 2020-07-07 2020-07-07 Outpatient Pavithra [facility] [id number] Univers 10:00:00 10:00:00 [facility] 2020-07-04 2020-07-04 Outpatient [facility] [id number] Memoria 11:24:00 11:24:00 Rheumatol Rheumatolog l ogy y [facility] 2020-06-03 2020-06-03 Outpatient Pavithra [facility] [id number] Univers 14:30:00 14:30:00 [facility] 2020-06-03 2020-06-03 Outpatient Pavithra [facility] [id number] Univers 14:30:00 14:30:00 [facility] 2020-05-27 2020-05-27 Outpatient [facility] [id number] Memoria 10:00:00 10:00:00 Rheumatol Rheumatolog l ogy y [facility] 2020-04-29 2020-04-29 Outpatient [facility] [id number] Memoria 09:30:00 09:30:00 Rheumatol Rheumatolog l ogy y [facility] Tabatha [facility] 2020-04-18 2020-04-18 Outpatient [facility] [id number] Memoria 13:15:00 13:15:00 Rheumatol Rheumatolog l ogy y [facility] 2020-04-15 2020-04-15 Outpatient [facility] [id number] Memoria 10:31:00 10:31:00 Rheumatol Rheumatolog l ogy y [facility] 2020-03-30 2020-03-30 Outpatient [facility] [id number] Memoria 10:57:00 10:57:00 Rheumatol Rheumatolog l ogy y [facility] 2020-03-09 2020-03-09 Outpatient [facility] [id number] Memoria 14:09:00 14:09:00 Rheumatol Rheumatolog l ogy y [facility] 2020-03-08 2020-03-08 Outpatient [facility] [id number] Memoria 09:32:00 09:32:00 Rheumatol Rheumatolog l ogy y [facility] 2020-02-26 2020-02-26 Outpatient [facility] [id number] Memoria 10:00:00 10:00:00 Rheumatol Rheumatolog l ogy y [facility] 2020-02-25 2020-02-25 Outpatient [facility] [id number] Memoria 14:45:00 14:45:00 Rheumatol Rheumatolog l ogy y [facility] 2020-02-04 2020-02-04 Refill Sultana Esqueda 1.2.840.1 [id number] Methodi 00:00:00 00:00:[id number] 3.430.2.7 Hospit a .[id number] l .8 2019-12-21 2019-12-21 Outpatient [facility] [id number] Memoria 09:58:00 09:58:00 Rheumatol Rheumatolog l ogy y [facility] 2019-12-18 2019-12-18 Outpatient [facility] [id number] Memoria 10:56:00 10:56:00 Rheumatol Rheumatolog l ogy y [facility] 2019-12-18 2019-12-18 Outpatient [facility] [id number] Memoria 09:30:00 09:30:00 Rheumatol Rheumatolog l ogy y [facility] 2019-12-05 2019-12-05 Refill ERICK Drummond 1.2.840.114 [id number] Univers 00:00:00 00:00:00 Jet A HEALTH [id number] it y [facility] [id number] [facility] [phone] [facility] [address] [facility] 2019-11-09 2019-11-09 Outpatient [facility] [id number] Memoria 14:30:00 14:30:00 Rheumatol Rheumatolog l ogy y [facility] 2019-11-09 2019-11-09 Outpatient [facility] [id number] Memoria 09:39:00 09:39:00 Rheumatol Rheumatolog l ogy y [facility] 2019-11-04 2019-11-04 Outpatient [facility] [id number] Memoria 13:17:00 13:17:00 Rheumatol Rheumatolog l ogy y [facility] 2019-10-18 2019-10-18 Mu Drummond [facility] [id number] [place] [address] 00:00:00 00:00:00 Jet A HEALTH [id number] it y [facility] [id number] [facility] [id number] [facility] [address] [facility] 2019-10-09 2019-10-09 Outpatient [facility] [id number] Memoria 10:00:00 10:00:00 Rheumatol Rheumatolog l ogy y [facility] 2019-10-06 2019-10-06 Outpatient [facility] [id number] Memoria 13:00:00 13:00:00 Rheumatol Rheumatolog l ogy y [facility] 2019-09-17 2019-09-17 Outpatient [facility] [id number] Memoria 15:57:00 15:57:00 Rheumatol Rheumatolog l ogy y [facility] 2019-08-06 2019-08-06 Outpatient [facility] [id number] Memoria 11:32:00 11:32:00 Rheumatol Rheumatolog l ogy y [facility] 2019-08-04 2019-08-04 Outpatient [facility] [id number] Memoria 13:15:00 13:15:00 Rheumatol Rheumatolog l ogy y [facility] 2019-07-07 2019-07-07 Outpatient [facility] [id number] Memoria 14:15:00 14:15:00 Rheumatol Rheumatolog l ogy y [facility] 2019-06-25 2019-06-25 Outpatient [facility] [id number] Memoria 14:16:00 14:16:00 Rheumatol Rheumatolog l ogy y [facility] 2019-05-29 2019-05-29 Outpatient [facility] [id number] Memoria 09:00:00 09:00:00 Rheumatol Rheumatolog l ogy y [facility] 2019-05-01 2019-05-01 Outpatient [facility] [id number] Mem[facility] 08:45:00 08:45:00 Rheumatol Rheumatolog l ogy y [facility] 2019-04-03 2019-04-03 Outpatient [facility] [id number] Memoria 10:00:00 10:00:00 Rheumatol Rheumatolog l ogy y [facility] 2019-03-20 2019-03-20 Outpatient [facility] [id number] Memoria 08:30:00 08:30:00 Rheumatol Rheumatolog l ogy y [facility] 2019-03-13 2019-03-13 Outpatient [facility] [id number] Memoria 12:35:00 12:35:00 Rheumatol Rheumatolog l ogy y [facility] 2019-03-04 2019-03-04 Outpatient [facility] [id number] Memoria 13:19:00 13:19:00 Rheumatol Rheumatolog l ogy y [facility] 2019-02-27 2019-02-27 Outpatient [facility] [id number] Memoria 13:20:00 13:20:00 Rheumatol Rheumatolog l ogy y [facility] 2019-01-21 2019-01-21 Outpatient [facility] [id number] Memoria 11:29:00 11:29:00 Rheumatol Rheumatolog l ogy y [facility] 2019-01-13 2019-01-13 Mu Drummond [facility] [id number] Univers 00:00:00 00:00:00 [facility] [id number] [facility] [id number] [facility] [id number] [facility] 9 [facility] 2019-01-05 2019-01-05 Outpatient [facility] [id number] Memoria 09:15:00 09:15:00 Rheumatol Rheumatolog l ogy y [facility] 2018-09-18 2018-09-18 Outpatient [facility] [id number] Memoria 13:30:00 13:30:00 Rheumatol Rheumatolog l ogy y [facility] 2018-08-29 2018-08-29 Outpatient [facility] [id number] Memoria 14:36:00 14:36:00 Rheumatol Rheumatolog l ogy y [facility] 2018-08-28 2018-08-28 Outpatient [facility] [id number] Memoria 09:37:00 09:37:00 Rheumatol Rheumatolog l ogy y [facility] 2018-05-21 2018-05-21 Outpatient [facility] [id number] Memoria 09:45:00 09:45:00 Rheumatol Rheumatolog l ogy y [facility] Results Test Description Test Time Test Comments Results Result Comments Source POCT MOLECULAR FLU 2022-03-27 18:16:52 Test Item Value Reference Range Interpretation Comme nts POCT Molecular FluA (test code = 73804-9) Negative Negative POCT Molecular FluB (test code = 86838-9) Negative Negative Lab Interpretation (test code = 88298-5) Normal [facility] MOLECULAR [id number] 18:16:52 Test Item Value Reference Range Interpretation Comments POCT Molecular FluA (test code = Negative Negative 53872-6) POCT Molecular FluB (test code = Negative Negative 18965-5) Lab Interpretation (test code = Normal 67149-0) [facility] [id number] 12:27:00 Test Item Value Reference Range Interpretation Comments SODIUM (test code = NA) 140 mEq/L 134-147 N POTASSIUM (test code = 4.0 mEq/L 3.4-5.0 N K) CHLORIDE (test code = 111 mEq/L 100-108 H CL) CARBON DIOXIDE (test 21 mEq/l 21-33 code = CO2) ANION GAP (test code = 12 0-20 N GAP) GLUCOSE (test code = 89 mg/dL 70-110 N GLU) BLOOD UREA NITROGEN 14 mg/dL 7-18 N (test code = BUN) GLOMERULAR FILTRATION 54.1 70-80 L Units of measure = RATE (test code = GFR) ml/mi n/1.73 m2 CREATININE (test code = 1.0 mg/dL 0.6-1.3 N CREAT) CALCIUM (test code = 9.2 mg/dL 8.0-10.5 N CA) CBC W/AUTO [id number] 12:11:00 Test Item Value Reference Range Interpretation Comments WHITE BLOOD CELL (test code = 6.3 x10 3/uL 4.5-11.0 N WBC) RED BLOOD CELL (test code = 3.55 x10 6/uL 3.54-5.02 N RBC) HEMOGLOBIN (test code = HGB) 10.8 g/dL 11.0-15.0 L HEMATOCRIT (test code = HCT) 34.5 % 33.0-45.0 N MEAN CELL VOLUME (test code = 97.2 fL 81.0-99.0 MCV) MEAN CELL HGB (test code = MCH) 30.4 pg 27.0-33.0 N MEAN CELL HGB CONCETRATION 31.3 g/dL 33.0-37.0 L (test code = MCHC) RED CELL DISTRIBUTION WIDTH CV 12.8 % 11.5-14.5 N (test code = RDW) RED CELL DISTRIBUTION WIDTH SD 45.9 fL 37.0-54.0 N (test code = RDW-SD) PLATELET COUNT (test code = 250 x10 3/uL 150-400 N PLT) MEAN PLATELET VOLUME (test code 10.5 fL 7.0-9.0 H = MPV) NEUTROPHIL % (test code = NT%) 69.6 % 56.0-77.0 N IMMATURE GRANULOCYTE % (test 0.6 % 0.0-2.0 N code = IG%) LYMPHOCYTE % (test code = LY%) 21.0 % 14.0-32.0 N MONOCYTE % (test code = MO%) 8.1 % 4.8-9.0 N EOSINOPHIL % (test code = EO%) 0.2 % 0.3-3.7 L BASOPHIL % (test code = BA%) 0.5 % 0.0-2.0 N NUCLEATED RBC % (test code = 0.0 % 0-0 N NRBC%) NEUTROPHIL # (test code = NT#) 4.40 x10 3/uL 2.0-7.6 N IMMATURE GRANULOCYTE # (test 0.04 x10 3/uL 0.00-0.03 H code = IG#) LYMPHOCYTE # (test code = LY#) 1.33 x10 3/uL 1.0-3.8 N MONOCYTE # (test code = MO#) 0.51 x10 3/uL 0.1-0.8 N EOSINOPHIL # (test code = EO#) 0.01 x10 3/uL 0.0-0.2 N BASOPHIL # (test code = BA#) 0.03 x10 3/uL 0.0-0.2 N NUCLEATED RBC # (test code = 0.00 x10 3/uL 0.0-0.1 N NRBC#) MANUAL DIFF REQUIRED (test code NO = MDIFF) CBC W/AUTO [id number] 11:45:00 Test Item Value Reference Range Interpretation Comments WHITE BLOOD CELL (test code = 5.1 x10 3/uL 4.5-11.0 N WBC) RED BLOOD CELL (test code = 2.97 x10 6/uL 3.54-5.02 L RBC) HEMOGLOBIN (test code = HGB) 9.1 g/dL 11.0-15.0 L HEMATOCRIT (test code = HCT) 31.2 % 33.0-45.0 L MEAN CELL VOLUME (test code = 105.1 fL 81.0-99.0 H MCV) MEAN CELL HGB (test code = MCH) 30.6 pg 27.0-33.0 N MEAN CELL HGB CONCETRATION 29.2 g/dL 33.0-37.0 L (test code = MCHC) RED CELL DISTRIBUTION WIDTH CV 13.2 % 11.5-14.5 N (test code = RDW) RED CELL DISTRIBUTION WIDTH SD 50.6 fL 37.0-54.0 N (test code = RDW-SD) PLATELET COUNT (test code = 170 x10 3/uL 150-400 N PLT) MEAN PLATELET VOLUME (test code 11.1 fL 7.0-9.0 H = MPV) NEUTROPHIL % (test code = NT%) 60.1 % 56.0-77.0 N IMMATURE GRANULOCYTE % (test 0.4 % 0.0-2.0 N code = IG%) LYMPHOCYTE % (test code = LY%) 29.7 % 14.0-32.0 N MONOCYTE % (test code = MO%) 8.6 % 4.8-9.0 N EOSINOPHIL % (test code = EO%) 0.4 % 0.3-3.7 N BASOPHIL % (test code = BA%) 0.8 % 0.0-2.0 N NUCLEATED RBC % (test code = 0.0 % 0-0 N NRBC%) NEUTROPHIL # (test code = NT#) 3.07 x10 3/uL 2.0-7.6 N IMMATURE GRANULOCYTE # (test 0.02 x10 3/uL 0.00-0.03 N code = IG#) LYMPHOCYTE # (test code = LY#) 1.52 x10 3/uL 1.0-3.8 N MONOCYTE # (test code = MO#) 0.44 x10 3/uL 0.1-0.8 N EOSINOPHIL # (test code = EO#) 0.02 x10 3/uL 0.0-0.2 N BASOPHIL # (test code = BA#) 0.04 x10 3/uL 0.0-0.2 N NUCLEATED RBC # (test code = 0.00 x10 3/uL 0.0-0.1 N NRBC#) MANUAL DIFF REQUIRED (test code NO = MDIFF) RBC [id number] 11:45:00 Test Item Value Reference Range Interpretation Comments ANISOCYTOSIS (test code = ANISO) SLIGHT MACROCYTOSIS (test code = MACR) FEW BASIC METABOLIC [id number] 08:04:00 Test Item Value Reference Range Interpretation Comments SODIUM (test code = NA) 139 mEq/L 134-147 N POTASSIUM (test code = 4.5 mEq/L 3.4-5.0 N K) CHLORIDE (test code = 113 mEq/L 100-108 H CL) CARBON DIOXIDE (test 16 mEq/l 21-33 L code = CO2) ANION GAP (test code = 15 0-20 N GAP) GLUCOSE (test code = 77 mg/dL 70-110 N GLU) BLOOD UREA NITROGEN 13 mg/dL 7-18 N (test code = BUN) GLOMERULAR FILTRATION 48.4 70-80 L Units of measure = RATE (test code = GFR) ml/mi n/1.73 m2 CREATININE (test code = 1.1 mg/dL 0.6-1.3 N CREAT) CALCIUM (test code = 9.3 mg/dL 8.0-10.5 N CA) PROTHROMBIN [id number] 07:09:00 Test Item Value Reference Range Interpretation Comments PROTHROMBIN TIME 11.8 SECONDS 9.3-12.9 N PATIENT (test code = PTP) INTERNATIONAL NORMAL 1.1 0.8-1.2 N TARGET INR BY RATIO (test code = INDICATIO N Indication INR) INR1. Prophylax is of venous thrombos is 2.0 - 3.0 (orthoped ic surgery), Proph ylaxis of venous throm bosis (other than hig h-risk surgery), Treat ment of Deep Vein Thrombosis/Pulm onary Embolism, Preve ntion of systemic emb olism - Tissue heart va lves, Acute Myocardia l Infarction (to prevent systemic emboli sm), Valvular heart disease, Atrial Fibrillation, Bileaflet mecha nical valve in aortic position.2. Mec hanical prosthetic valv es (high risk), 2. 5 - 3.5 Presence of Lup us Anticoagulant o r Antiphospholipi d Antibodies, Pre vention of systemic emb olism - Acute Myocardia l Infarction (to prevent recurrent infar ct). UR OSMOLALITY [id number] 23:22:00 Test Item Value Reference Range Interpretation Comments UR OSMOLALITY RANDOM (test code = 216 MOS/KG 300-1000 L OSMOU) UR OSMOLALITY [id number] 23:22:00 Test Item Value Reference Range Interpretation Comments UR OSMOLALITY RANDOM (test code = 216 MOS/KG 300-1000 L OSMOU) UR SODIUM [id number] 23:22:00 Test Item Value Reference Range Interpretation Comments UR SODIUM RANDOM 60 MEQ/L The Referen ce Range and (test code = LOVELY) Method Per formance specificationsh ave not been established for this fluid. The test result should be correlated into the clinical context forinte rpretation. UR PROTEIN [id number] 23:22:00 Test Item Value Reference Range Interpretation Comments UR PROTEIN RANDOM < 6 mg/dL No te: Change in (test code = UNITS of MEASUR EMENT. PROTU) The Refe rence Range and Method Perf ormance specificationsh ave not been established for this fluid. The test result should be correlated into the clinical contex t forinterpretati on. UR CREATININE [id number] 23:22:00 Test Item Value Reference Range Interpretation Comments UR CREATININE 22.9 mg/dL The Reference Range and RANDOM (test code Method Per formance = CREATU) specificationsh ave not been establishe d for this fluid. The test resultshould be correlated into the clinical contex t forinterpretati on. COVID 19 Asymptomatic IH [id number] 13:48:00 Test Item Value Reference Range Interpretation Comments COVID 19 Asymptomatic Negative Negative A neg ative result is IH AG (test code = presumpti ve and should COVNONPUIAG) be confirmedwit h an FDA authorized mole cular assay, if neces licha forpatient sarahy gement.A positive result does not rule out co-inf ections withother patho gens.This test detects boaz th viable (live) and non-viable,SARS -CoV, and SARS-CoV-2. Estela t performance dep ends on theamount of vi chelo (antigen) in th e sample.This estela t has not been FDA cleare d or approved; the t est hasbeen authori zed by FDA under an Em ergency Use Authorizati on(EUA) for use by labo ratories certified under the CLIA thatmeet the requirements to perform moderate, high or waivedcomplexit y tests. CBC W/AUTO [id number] 09:10:00 Test Item Value Reference Range Interpretation Comments WHITE BLOOD CELL (test code = 5.3 x10 3/uL 4.5-11.0 N WBC) RED BLOOD CELL (test code = 3.35 x10 6/uL 3.54-5.02 L RBC) HEMOGLOBIN (test code = HGB) 10.4 g/dL 11.0-15.0 L HEMATOCRIT (test code = HCT) 34.2 % 33.0-45.0 N MEAN CELL VOLUME (test code = 102.1 fL 81.0-99.0 H MCV) MEAN CELL HGB (test code = MCH) 31.0 pg 27.0-33.0 N MEAN CELL HGB CONCETRATION 30.4 g/dL 33.0-37.0 L (test code = MCHC) RED CELL DISTRIBUTION WIDTH CV 13.3 % 11.5-14.5 N (test code = RDW) PLATELET COUNT (test code = 270 x10 3/uL 150-400 N PLT) NEUTROPHIL % (test code = NT%) 49.1 % 56.0-77.0 L LYMPHOCYTE % (test code = LY%) 38.8 % 14.0-32.0 H NEUTROPHIL # (test code = NT#) 2.59 x10 3/uL 2.0-7.6 N LYMPHOCYTE # (test code = LY#) 2.05 x10 3/uL 1.0-3.8 N MANUAL DIFF REQUIRED (test code NO = MDIFF) RED CELL DISTRIBUTION WIDTH SD 49.9 fL 37.0-54.0 N (test code = RDW-SD) MEAN PLATELET VOLUME (test code 10.6 fL 7.0-9.0 H = MPV) IMMATURE GRANULOCYTE % (test 1.1 % 0.0-2.0 N code = IG%) MONOCYTE % (test code = MO%) 9.5 % 4.8-9.0 H EOSINOPHIL % (test code = EO%) 0.4 % 0.3-3.7 N BASOPHIL % (test code = BA%) 1.1 % 0.0-2.0 N NUCLEATED RBC % (test code = 0.0 % 0-0 N NRBC%) IMMATURE GRANULOCYTE # (test 0.06 x10 3/uL 0.00-0.03 H code = IG#) MONOCYTE # (test code = MO#) 0.50 x10 3/uL 0.1-0.8 N EOSINOPHIL # (test code = EO#) 0.02 x10 3/uL 0.0-0.2 N BASOPHIL # (test code = BA#) 0.06 x10 3/uL 0.0-0.2 N NUCLEATED RBC # (test code = 0.00 x10 3/uL 0.0-0.1 N NRBC#) BASIC METABOLIC [id number] 07:41:00 Test Item Value Reference Range Interpretation Comments SODIUM (test code = NA) 140 mEq/L 134-147 N POTASSIUM (test code = 4.3 mEq/L 3.4-5.0 N K) CHLORIDE (test code = 108 mEq/L 100-108 N CL) CARBON DIOXIDE (test 21 mEq/l 21-33 N code = CO2) ANION GAP (test code = 15 0-20 N GAP) GLUCOSE (test code = 77 mg/dL 70-110 N GLU) BLOOD UREA NITROGEN 17 mg/dL 7-18 N (test code = BUN) GLOMERULAR FILTRATION 48.4 70-80 L Units of measure = RATE (test code = GFR) ml/mi n/1.73 m2 CREATININE (test code = 1.1 mg/dL 0.6-1.3 CREAT) CALCIUM (test code = 9.9 mg/dL 8.0-10.5 N CA) BASIC METABOLIC [id number] 07:50:00 Test Item Value Reference Range Interpretation Comments SODIUM (test code = NA) 141 mEq/L 134-147 N POTASSIUM (test code = 3.9 mEq/L 3.4-5.0 N K) CHLORIDE (test code = 108 mEq/L 100-108 N CL) CARBON DIOXIDE (test 21 mEq/l 21-33 N code = CO2) ANION GAP (test code = 16 0-20 N GAP) GLUCOSE (test code = 91 mg/dL 70-110 N GLU) BLOOD UREA NITROGEN 18 mg/dL 7-18 (test code = BUN) GLOMERULAR FILTRATION 33.9 70-80 L Units of measure = RATE (test code = GFR) ml/mi n/1.73 m2 CREATININE (test code = 1.5 mg/dL 0.6-1.3 H CREAT) CALCIUM (test code = 9.6 mg/dL 8.0-10.5 N CA) CBC W/AUTO [id number] 07:00:00 Test Item Value Reference Range Interpretation Comments WHITE BLOOD CELL (test code = 5.1 x10 3/uL 4.5-11.0 N WBC) RED BLOOD CELL (test code = 3.73 x10 6/uL 3.54-5.02 N RBC) HEMOGLOBIN (test code = HGB) 11.5 g/dL 11.0-15.0 N HEMATOCRIT (test code = HCT) 37.2 % 33.0-45.0 N MEAN CELL VOLUME (test code = 99.7 fL 81.0-99.0 H MCV) MEAN CELL HGB (test code = MCH) 30.8 pg 27.0-33.0 N MEAN CELL HGB CONCETRATION 30.9 g/dL 33.0-37.0 L (test code = MCHC) RED CELL DISTRIBUTION WIDTH CV 13.2 % 11.5-14.5 N (test code = RDW) RED CELL DISTRIBUTION WIDTH SD 48.9 fL 37.0-54.0 N (test code = RDW-SD) PLATELET COUNT (test code = 318 x10 3/uL 150-400 N PLT) MEAN PLATELET VOLUME (test code 10.4 fL 7.0-9.0 H = MPV) NEUTROPHIL % (test code = NT%) 50.6 % 56.0-77.0 L IMMATURE GRANULOCYTE % (test 1.4 % 0.0-2.0 N code = IG%) LYMPHOCYTE % (test code = LY%) 36.8 % 14.0-32.0 H MONOCYTE % (test code = MO%) 9.4 % 4.8-9.0 H EOSINOPHIL % (test code = EO%) 0.6 % 0.3-3.7 N BASOPHIL % (test code = BA%) 1.2 % 0.0-2.0 N NUCLEATED RBC % (test code = 0.0 % 0-0 N NRBC%) NEUTROPHIL # (test code = NT#) 2.59 x10 3/uL 2.0-7.6 N IMMATURE GRANULOCYTE # (test 0.07 x10 3/uL 0.00-0.03 H code = IG#) LYMPHOCYTE # (test code = LY#) 1.88 x10 3/uL 1.0-3.8 N MONOCYTE # (test code = MO#) 0.48 x10 3/uL 0.1-0.8 N EOSINOPHIL # (test code = EO#) 0.03 x10 3/uL 0.0-0.2 N BASOPHIL # (test code = BA#) 0.06 x10 3/uL 0.0-0.2 N NUCLEATED RBC # (test code = 0.00 x10 3/uL 0.0-0.1 N NRBC#) MANUAL DIFF REQUIRED (test code NO = MDIFF) BASIC METABOLIC [id number] 08:15:00 Test Item Value Reference Range Interpretation Comments SODIUM (test code = NA) 138 mEq/L 134-147 N POTASSIUM (test code = 3.9 mEq/L 3.4-5.0 N K) CHLORIDE (test code = 109 mEq/L 100-108 H CL) CARBON DIOXIDE (test 19 mEq/l 21-33 L code = CO2) ANION GAP (test code = 14 0-20 N GAP) GLUCOSE (test code = 93 mg/dL 70-110 GLU) BLOOD UREA NITROGEN 14 mg/dL 7-18 (test code = BUN) GLOMERULAR FILTRATION 27.4 70-80 L Units of measure = RATE (test code = GFR) ml/mi n/1.73 m2 CREATININE (test code = 1.8 mg/dL 0.6-1.3 H CREAT) CALCIUM (test code = 9.0 mg/dL 8.0-10.5 N CA) CBC W/AUTO [id number] 07:24:00 Test Item Value Reference Range Interpretation Comments WHITE BLOOD CELL (test code = 7.9 x10 3/uL 4.5-11.0 N WBC) RED BLOOD CELL (test code = 3.50 x10 6/uL 3.54-5.02 L RBC) HEMOGLOBIN (test code = HGB) 10.8 g/dL 11.0-15.0 L HEMATOCRIT (test code = HCT) 34.8 % 33.0-45.0 N MEAN CELL VOLUME (test code = 99.4 fL 81.0-99.0 H MCV) MEAN CELL HGB (test code = MCH) 30.9 pg 27.0-33.0 N MEAN CELL HGB CONCETRATION 31.0 g/dL 33.0-37.0 L (test code = MCHC) RED CELL DISTRIBUTION WIDTH CV 13.0 % 11.5-14.5 N (test code = RDW) RED CELL DISTRIBUTION WIDTH SD 47.6 fL 37.0-54.0 N (test code = RDW-SD) PLATELET COUNT (test code = 363 x10 3/uL 150-400 N PLT) MEAN PLATELET VOLUME (test code 10.2 fL 7.0-9.0 H = MPV) NEUTROPHIL % (test code = NT%) 64.2 % 56.0-77.0 N IMMATURE GRANULOCYTE % (test 1.0 % 0.0-2.0 N code = IG%) LYMPHOCYTE % (test code = LY%) 25.3 % 14.0-32.0 N MONOCYTE % (test code = MO%) 8.2 % 4.8-9.0 N EOSINOPHIL % (test code = EO%) 0.5 % 0.3-3.7 N BASOPHIL % (test code = BA%) 0.8 % 0.0-2.0 N NUCLEATED RBC % (test code = 0.0 % 0-0 N NRBC%) NEUTROPHIL # (test code = NT#) 5.07 x10 3/uL 2.0-7.6 N IMMATURE GRANULOCYTE # (test 0.08 x10 3/uL 0.00-0.03 H code = IG#) LYMPHOCYTE # (test code = LY#) 2.00 x10 3/uL 1.0-3.8 N MONOCYTE # (test code = MO#) 0.65 x10 3/uL 0.1-0.8 N EOSINOPHIL # (test code = EO#) 0.04 x10 3/uL 0.0-0.2 N BASOPHIL # (test code = BA#) 0.06 x10 3/uL 0.0-0.2 N NUCLEATED RBC # (test code = 0.00 x10 3/uL 0.0-0.1 N NRBC#) MANUAL DIFF REQUIRED (test code NO = MDIFF) BASIC METABOLIC [id number] 06:39:00 Test Item Value Reference Range Interpretation Comments SODIUM (test code = NA) 143 mEq/L 134-147 N POTASSIUM (test code = 3.9 mEq/L 3.4-5.0 N K) CHLORIDE (test code = 112 mEq/L 100-108 H CL) CARBON DIOXIDE (test 20 mEq/l 21-33 L code = CO2) ANION GAP (test code = 15 0-20 N GAP) GLUCOSE (test code = 68 mg/dL 70-110 L GLU) BLOOD UREA NITROGEN 9 mg/dL 7-18 (test code = BUN) GLOMERULAR FILTRATION 36.7 70-80 L Units of measure = RATE (test code = GFR) ml/mi n/1.73 m2 CREATININE (test code = 1.4 mg/dL 0.6-1.3 H CREAT) CALCIUM (test code = 9.4 mg/dL 8.0-10.5 N CA) LIPID PROFILE (CORONARY RISK)2021-07-26 06:39:00 Test Item Value Reference Range Interpretation Comments TRIGLYCERIDES (test 125 mg/dL 40-150 N code = TRIG) CHOLESTEROL (test 139 mg/dL <200 code = CHOL) CHOLESTEROL/HDL 3.23 RATIO 3.27-4.44 L RISK ASSOCIA OFELIA WITH RATIO (test code = CHOL/HDL RATIOS: RISK CHOLHDL) MALE FEMALE1/2 AVERAGE 3.43 3.27AVERAG E 4.97 4.442X AVERAGE 9.55 7.053X AVERAGE 23.39 11.04 NOTE THAT THE REFERENCE VALUE IS RELATEDTO RISK LEVELS RECOMMENDED BY THE NATL.HEART, NANCY G, AND BLOOD INST. HDL CHOLESTEROL 43.1 mg/dL 39-96 N (test code = HDL) LIPOPROTEIN LDL 82.2 mg/dL 0-100 N <100 OPTIMAL 100-129 (test code = LDL) NEAR OPTIM AL/ABOVE [id number] 89 HIGH>BM=220 LYNN Y HIGH*Guidelines provided by the National Choles terol EducationProgra m Adult Treatment Panel III [id number] 06:39:00 Test Item Value Reference Range Interpretation Comments PHOSPHOROUS (test code = PHOS) 2.3 MG/DL 2.5-4.9 L [id number] 06:39:00 Test Item Value Reference Range Interpretation Comments MAGNESIUM (test code = MAG) 2.01 mg/dL 1.80-2.40 N UA RFLX MICR CULT IF [id number] 06:29:00 Test Item Value Reference Range Interpretation Comments UA COLOR (test code = COLU) YELLOW YEL/STRAW UA APPEARANCE (test code = SL CLOUDY CLEAR APPU) UA GLUCOSE DIPSTICK (test code NEGATIVE NEGATIVE = DGLUU) UA BILIRUBIN DIPSTICK (test NEGATIVE NEGATIVE code = BILU) UA KETONE DIPSTICK (test code = NEGATIVE NEGATIVE KETU) UA SPECIFIC GRAVITY (test code 1.009 1.005-1.030 N = SGU) UA BLOOD DIPSTICK (test code = 1+ NEGATIVE A MICHAEL) UA PH DIPSTICK (test code = 6.0 5.0-7.0 N WATSON) UA PROTEIN DIPSTICK (test code NEGATIVE NEGATIVE = PROU) UA UROBILINIOGEN DIPSTICK (test 0.2 mg/dL 0.2-1.0 code = URO) UA NITRITE DIPSTICK (test code NEGATIVE NEGATIVE = TERESA) UA LEUKOCYTE ESTERASE DIPSTICK 3+ NEGATIVE A (test code = LEUU) UA WBC (test code = WBCU) 21-50 WBC/HPF 0-3 A UA RBC (test code = RBCU) 4-10 RBC/HPF 0-3 UA WBC NO REFLEX (test code = 21-50 WBC/HPF 0-3 A WBCUCL) UA BACTERIA (test code = BACU) 4+ /HPF NONE SEEN A UA SQUAMOUS CELLS (test code = 0-5 /HPF NONE SEEN SQU) UA MUCUS (test code = MUCU) TRACE /LPF NONE SEEN Indication for culture: RiskForSepsis-no oth srcSpecimen Description: CLEAN CATCHCBC W/AUTO [id number] 06:02:00 Test Item Value Reference Range Interpretation Comments WHITE BLOOD CELL (test code = 7.0 x10 3/uL 4.5-11.0 N WBC) RED BLOOD CELL (test code = 3.41 x10 6/uL 3.54-5.02 L RBC) HEMOGLOBIN (test code = HGB) 10.7 g/dL 11.0-15.0 L HEMATOCRIT (test code = HCT) 34.9 % 33.0-45.0 N MEAN CELL VOLUME (test code = 102.3 fL 81.0-99.0 H MCV) MEAN CELL HGB (test code = MCH) 31.4 pg 27.0-33.0 N MEAN CELL HGB CONCETRATION 30.7 g/dL 33.0-37.0 L (test code = MCHC) RED CELL DISTRIBUTION WIDTH CV 13.1 % 11.5-14.5 N (test code = RDW) RED CELL DISTRIBUTION WIDTH SD 48.7 fL 37.0-54.0 N (test code = RDW-SD) PLATELET COUNT (test code = 376 x10 3/uL 150-400 N PLT) MEAN PLATELET VOLUME (test code 10.5 fL 7.0-9.0 H = MPV) NEUTROPHIL % (test code = NT%) 62.4 % 56.0-77.0 N IMMATURE GRANULOCYTE % (test 0.6 % 0.0-2.0 N code = IG%) LYMPHOCYTE % (test code = LY%) 27.5 % 14.0-32.0 N MONOCYTE % (test code = MO%) 8.5 % 4.8-9.0 N EOSINOPHIL % (test code = EO%) 0.3 % 0.3-3.7 N BASOPHIL % (test code = BA%) 0.7 % 0.0-2.0 N NUCLEATED RBC % (test code = 0.0 % 0-0 N NRBC%) NEUTROPHIL # (test code = NT#) 4.35 x10 3/uL 2.0-7.6 N IMMATURE GRANULOCYTE # (test 0.04 x10 3/uL 0.00-0.03 H code = IG#) LYMPHOCYTE # (test code = LY#) 1.92 x10 3/uL 1.0-3.8 N MONOCYTE # (test code = MO#) 0.59 x10 3/uL 0.1-0.8 N EOSINOPHIL # (test code = EO#) 0.02 x10 3/uL 0.0-0.2 N BASOPHIL # (test code = BA#) 0.05 x10 3/uL 0.0-0.2 N NUCLEATED RBC # (test code = 0.00 x10 3/uL 0.0-0.1 N NRBC#) MANUAL DIFF REQUIRED (test code NO = MDIFF) HGBA1C%2021-07-26 02:30:00 Test Item Value Reference Range Interpretation Comments HGBA1C% (test code = HGBA1C%) 4.3 %A1C 4.8-6.0 L TSH REFLEX TO [id number] 01:41:00 Test Item Value Reference Range Interpretation Comments TSH REFLEX TO FT4 (test code = 3.67 IU/mL 0.42-5.47 N TSHREFLEX) TROP-I HIGH [id number] 01:41:00 Test Item Value Reference Range Interpretation Comments TROP-I HIGH 97 ng/L 0-34 H CAUTION: Units of the SENSITIVITY (test current te st methodology code = TROPIHS) (ng/L) diffe rfrom the prior test methodolog y (ng/mL) by a factor of 1000. 99th Percentile Upper Reference Limit (URL): Females: 34 ng/LMales: 54 n g/L In order to distinguish acute elevations of h igh sensitivitytrop onin from other clinical conditions, the FourthUnive rsal Definition of M yocardial Infarction stre ssesclinical assessment and the demonstration o f a rise and/orfall in s erial troponin result s above the URL. These resu lts were obtained using Siemens AtellGodTube IM TnI Hreagent. Results from di fferent methodologies s hould not becompared to o ne another as quantitative results and URLs mayvary by method. LACTIC [id number] 01:24:00 Test Item Value Reference Range Interpretation Comments LACTIC ACID (test code = LACT) 1.2 mmol/L 0.4-1.9 N LACTIC ACID [id number] 20:04:00 Test Item Value Reference Range Interpretation Comments LACTIC ACID REPEAT (test code = 2.0 mmol/l 0.4-1.9 H LACTR) COVID 19 INHOUSE [id number] 17:36:00 Test Item Value Reference Range Interpretation Comments COVID 19 INHOUSE Negative Negative A negative result is AG (test code = presumptive and should be [id number]) confirmedwith a n FDA authorized mole cular assay, if necessary fo rpatient management.A po sitive result does not rule out co-infections w ithother pathogens.This test detects both viable (li ve) and non-viable,SARS -CoV, and SARS-CoV-2. Estela t performance dep ends on theamount of vi chelo (antigen) in e sample.This estela t has not been FDA cleare d or approved; the t est hasbeen authorized by Radha GARCIA under an Emergency Use Authorization(E UA) for use by laboratories certified under the CLIA thatmeet the requirements to perform moderate, high or waivedcomplexit y tests. B-TYPE NATRIURETIC [id number] 17:35:00 Test Item Value Reference Range Interpretation Comments B-TYPE NATRIURETIC PEPTIDE (test 857.0 PG/ML 0-100 H code = BNP) COMPREHENSIVE METABOLIC [id number] 17:32:00 Test Item Value Reference Range Interpretation Comments SODIUM (test code = NA) 143 mEq/L 134-147 N POTASSIUM (test code = 4.8 mEq/L 3.4-5.0 N K) CHLORIDE (test code = 114 mEq/L 100-108 H CL) CARBON DIOXIDE (test 18 mEq/l 21-33 L code = CO2) ANION GAP (test code = 16 0-20 N GAP) GLUCOSE (test code = 104 mg/dL 70-110 N GLU) BLOOD UREA NITROGEN 14 mg/dL 7-18 N (test code = BUN) GLOMERULAR FILTRATION 36.7 70-80 L Units of measure = RATE (test code = GFR) ml/mi n/1.73 m2 CREATININE (test code = 1.4 mg/dL 0.6-1.3 H CREAT) TOTAL PROTEIN (test 6.8 g/dL 6.4-8.2 N code = PROT) ALBUMIN (test code = 3.70 g/dL 3.4-5.0 N ALB) CALCIUM (test code = 9.3 mg/dL 8.0-10.5 N CA) BILIRUBIN TOTAL (test 0.30 mg/dL 0.0-1.0 N code = BILT) SGOT/AST (test code = 32 IUnit/L 15-37 N AST) SGPT/ALT (test code = 15 IUnit/L 30-65 L ALT) ALKALINE PHOSPHATASE 90 IUnit/L 20-125 N TOTAL (test code = ALKP) CREATINE KINASE (CK)2021-07-25 17:32:00 Test Item Value Reference Range Interpretation Comments CREATINE KINASE (CK) (test code = 99 Units/L 35-232 N CK) [id number] 17:32:00 Test Item Value Reference Range Interpretation Comments ALCOHOL (test < 3.0 mg/dL <10 N Ethyl Alcohol code = ALC) Interpretation: 100 mg/dL - Legally Intox icated 300-400 mg/dL - Severely Intoxicated &gt ;400 mg/dL - Potentially L ethalThe pharmacological response to blood alcoho l levels mayvary from in dividual to individual. Signs of intoxicationcan be observed at lev els of 50-100 mg/dL. R esults are for Medical pur poses only, and not f or Legal orEmployment ev aluation purposes. LACTIC [id number] 17:28:00 Test Item Value Reference Range Interpretation Comments LACTIC ACID (test code = LACT) 2.6 mmol/L 0.4-1.9 H CBC W/AUTO [id number] 17:16:00 Test Item Value Reference Range Interpretation Comments WHITE BLOOD CELL (test code = 7.0 x10 3/uL 4.5-11.0 N WBC) RED BLOOD CELL (test code = 3.47 x10 6/uL 3.54-5.02 L RBC) HEMOGLOBIN (test code = HGB) 10.8 g/dL 11.0-15.0 L HEMATOCRIT (test code = HCT) 35.3 % 33.0-45.0 N MEAN CELL VOLUME (test code = 101.7 fL 81.0-99.0 H MCV) MEAN CELL HGB (test code = MCH) 31.1 pg 27.0-33.0 N MEAN CELL HGB CONCETRATION 30.6 g/dL 33.0-37.0 L (test code = MCHC) RED CELL DISTRIBUTION WIDTH CV 13.0 % 11.5-14.5 N (test code = RDW) RED CELL DISTRIBUTION WIDTH SD 48.6 fL 37.0-54.0 N (test code = RDW-SD) PLATELET COUNT (test code = 387 x10 3/uL 150-400 N PLT) MEAN PLATELET VOLUME (test code 9.7 fL 7.0-9.0 H = MPV) NEUTROPHIL % (test code = NT%) 65.7 % 56.0-77.0 N IMMATURE GRANULOCYTE % (test 0.7 % 0.0-2.0 N code = IG%) LYMPHOCYTE % (test code = LY%) 24.7 % 14.0-32.0 N MONOCYTE % (test code = MO%) 7.9 % 4.8-9.0 N EOSINOPHIL % (test code = EO%) 0.1 % 0.3-3.7 L BASOPHIL % (test code = BA%) 0.9 % 0.0-2.0 N NUCLEATED RBC % (test code = 0.0 % 0-0 N NRBC%) NEUTROPHIL # (test code = NT#) 4.59 x10 3/uL 2.0-7.6 N IMMATURE GRANULOCYTE # (test 0.05 x10 3/uL 0.00-0.03 H code = IG#) LYMPHOCYTE # (test code = LY#) 1.73 x10 3/uL 1.0-3.8 N MONOCYTE # (test code = MO#) 0.55 x10 3/uL 0.1-0.8 N EOSINOPHIL # (test code = EO#) 0.01 x10 3/uL 0.0-0.2 N BASOPHIL # (test code = BA#) 0.06 x10 3/uL 0.0-0.2 N NUCLEATED RBC # (test code = 0.00 x10 3/uL 0.0-0.1 N NRBC#) MANUAL DIFF REQUIRED (test code NO = MDIFF) - XR CHEST 1 [id number] 00:00:00 [facility] 1945 Sex: F FAX: Karly Zayas DO [phone] [place]: St: REG FAX: Adelfo Perry MD [phone] ---- Name: JESSICA OVIEDO [facility] Ely Chong : 1945 Age/S: 75/F [address] [place] [address] Unit #: [id number] Loc: [place] [address] Phys: Adelfo Londono MD Acct: [id number] Dis Date: Status: REG ER PHONE #: [phone] Exam Date: 07/25/20211711 FAX #: [phone] Reason: Seizure Adult EXAMS: CPT CODE: [id number] XR CHEST 1 V 75685 PROCEDURE INFORMATION: Exam: XR Chest Exam date and time: 07/25/2021 5:06 PM Age: 75 years old Clinical indication: Condition or disease; Other: Seizure adult TECHNIQUE: Imaging protocol: XR of the chest. Views: 1 view. COMPARISON: CR XR CHEST 1V 07/09/2021 8:01 PM FINDINGS: Tubes, ca theters and devices: Stable position of right transvenous pacer. Lungs: Slight atelectasis in the lateral left mid lung/left lung base and mild atelectasis in the right lung base. No other focal infiltrates within the lungs and no edema. Stable elevation of the right hemidiaphragm. Pleural spaces: Unremarkable. No pleural effusion. No pneumothorax. Heart/Mediastinum: Cardiac and mediastinal structures are stable. Bones/joints: Unremarkable. IMPRESSION: Slight atelectasis in the lateral left mid lung/left lung base and mild atelectasis in the right lung base. No other focal infiltrates within the lungs. at 1718 Reported and signed by: Yossi Clayton M.D. CC: Karly Maldonado DO; Adelfo Londono MD Technologist: María Melendez RT(R) Trnscrd Date/Time/By: 07/25/2021 (1717) : By: [email or web address] Orig Print D/T: S: 07/25/2021 (1718) PAGE 1 Signed Report- CT HEAD/BRAIN W/O [id number] 00:00:00 [facility] 1945 Sex: F Name: JESSICA OVIEDO [facility] [place] : 1945 Age/S: 75 / F [address] [place] [address] Unit #:[id number] Loc: [place] [address] Phys: Adelfo Londono MD Acct: [id number] Dis Date: Status: REGER PHONE #: [phone] Exam Date: 07/25/2021 1724 FAX #: [phone] Reason: Seizure-like episdoeEXAMS: CPT CODE: [id number] CT HEAD/BRAIN W/O CONT [id number] PROCEDURE INFORMATION: Exam: CT Head WithoutContrast Exam date and time: 07/25/2021 5:25 PM Age: 75 years old Clinical indication: Other: Seizure-like episdoe TECHNIQUE: Imaging protocol: Computed tomography of the head without contrast. Radiationoptimization: All CT scans at this facility use at least one of these dose optimization techniques: automated exposure control; mA and/or kV adjustment per patient size (includes targeted exams where dose is matched to clinical indication); or iterative reconstruction. Other technique: CT Radiation Dose: DLP = 588 mGy-cm COMPARISON: No relevant prior studies available. FINDINGS: Brain: No cerebral mass effect, midline shift, acute edema, or acute hemorrhage. There is generalized diffuse atrophy. There are mild periventricular white matter low densities without mass effect. Cerebral ventricles: No ventriculomegaly. Paranasal sinuses: Visualized sinuses are unremarkable. No fluid levels. Mastoid aircells: Visualized mastoid air cells are well aerated. Vasculature: There are vascular atherosclerotic calcifications carotid siphons. Bones/joints: Unremarkable. No acute fracture. Soft tissues: Unremarkable. IMPRESSION: Chronic changes as described above. No acute intracranial process. at 1736 Reported and signed by: Cory Mckee M.D. CC: Karly Maldonado DO; Adelfo Londono MD Technologist:Agueda Dumont, RT(R)(CT); Mick CTDI: DLP: Trnscb Date/Time: 07/25/2021 (1735) t.[email or web address] Orig Print D/T: S: 07/25/2021 (1735) PAGE 1 Signed ReportBASIC METABOLIC [id number] 08:53:00 Test Item Value Reference Range Interpretation Comments SODIUM (test code = NA) 134 mmol/l 134.0-147.0 N POTASSIUM (test code = K) 4.1 mmol/L 3.6-5.2 N CHLORIDE (test code = CL) 105 mmol/l 98.0-107.0 N CARBON DIOXIDE (test code = CO2) 20.0 mmol/l 21.0-33.0 L ANION GAP (test code = GAP) 13.1 0-20 N GLUCOSE (test code = GLU) 92 mg/dl 70.0-110.0 N BLOOD UREA NITROGEN (test code = 12 mg/dl 7.0-18.0 N BUN) CREATININE (test code = CREAT) 1.27 mg/dL 0.60-1.30 N GFR NON BLACK (test code = 43 mL/min 70-80 L GFRNONBLACK) GFR BLACK (test code = GFRBLACK) 53 mL/min 85-97 L CALCIUM (test code = CA) 8.4 mg/dl 8.0-10.5 N CBC W/AUTO [id number] 07:19:00 Test Item Value Reference Range Interpretation Comments WHITE BLOOD CELL (test code = 7.4 K/mm3 4.5-11.0 N WBC) RED BLOOD CELL (test code = 3.23 M/mm3 3.80-5.20 L RBC) HEMOGLOBIN (test code = HGB) 10.3 gm/dL 12.0-16.0 L HEMATOCRIT (test code = HCT) 31.7 % 36.0-48.0 L MEAN CELL VOLUME (test code = 98.1 UM3 82.0-99.0 N MCV) MEAN CELL HGB (test code = MCH) 31.9 UUG 25.5-32.5 N MEAN CELL HGB CONCETRATION 32.5 gm/dL 29.0-35.5 N (test code = MCHC) RED CELL DISTRIBUTION WIDTH 13.5 % 11.5-15.0 N (test code = RDW) RED CELL DISTRIBUTION WIDTH SD 49.1 fL 34.8-50.2 N (test code = RDW-SD) PLATELET COUNT (test code = 236 K/mm3 150-400 N PLT) MEAN PLATELET VOLUME (test code 10.4 fl 7.4-10.4 N = MPV) NEUTROPHIL % (test code = NT%) 66.3 % 49.0-76.0 N IMMATURE GRANULOCYTE % (test 1.2 % 0.0-0.4 H code = IG%) LYMPHOCYTE % (test code = LY%) 23.3 % 23.0-38.0 N MONOCYTE % (test code = MO%) 8.6 % 1.0-10.0 N EOSINOPHIL % (test code = EO%) 0.1 % 1.0-5.0 L BASOPHIL % (test code = BA%) 0.5 % 0.0-1.0 N NUCLEATED RBC % (test code = 0.0 % 0.0-0.1 N NRBC%) NEUTROPHIL # (test code = NT#) 4.9 K/mm3 2.4-6.3 N IMMATURE GRANULOCYTE # (test 0.09 x10 3/uL 0.00-0.07 H code = IG#) LYMPHOCYTE # (test code = LY#) 1.7 K/mm3 1.2-4.0 N MONOCYTE # (test code = MO#) 0.6 K/mm3 0.0-0.6 N EOSINOPHIL # (test code = EO#) 0.0 K/MM3 0.0-0.7 N BASOPHIL # (test code = BA#) 0.0 K/mm3 0.0-0.2 N NUCLEATED RBC # (test code = 0.00 X10 3uL 0.00-0.01 N NRBC#) BASIC METABOLIC [id number] 07:16:00 Test Item Value Reference Range Interpretation Comments SODIUM (test code = NA) 137 mmol/l 134.0-147.0 N POTASSIUM (test code = K) 3.7 mmol/L 3.6-5.2 N CHLORIDE (test code = CL) 107 mmol/l 98.0-107.0 N CARBON DIOXIDE (test code = CO2) 19.2 mmol/l 21.0-33.0 L ANION GAP (test code = GAP) 14.5 0-20 N GLUCOSE (test code = GLU) 86 mg/dl 70.0-110.0 N BLOOD UREA NITROGEN (test code = 16 mg/dl 7.0-18.0 N BUN) CREATININE (test code = CREAT) 1.36 mg/dL 0.60-1.30 H GFR NON BLACK (test code = 40 mL/min 70-80 L GFRNONBLACK) GFR BLACK (test code = GFRBLACK) 49 mL/min 85-97 L CALCIUM (test code = CA) 7.5 mg/dl 8.0-10.5 L BASIC METABOLIC [id number] 08:08:00 Test Item Value Reference Range Interpretation Comments SODIUM (test code = NA) 137 mmol/l 134.0-147.0 N POTASSIUM (test code = K) 3.4 mmol/L 3.6-5.2 L CHLORIDE (test code = CL) 109 mmol/l 98.0-107.0 H CARBON DIOXIDE (test code = CO2) 17.2 mmol/l 21.0-33.0 L ANION GAP (test code = GAP) 14.2 0-20 N GLUCOSE (test code = GLU) 92 mg/dl 70.0-110.0 N BLOOD UREA NITROGEN (test code = 26 mg/dl 7.0-18.0 H BUN) CREATININE (test code = CREAT) 1.58 mg/dL 0.60-1.30 H GFR NON BLACK (test code = 34 mL/min 70-80 L GFRNONBLACK) GFR BLACK (test code = GFRBLACK) 41 mL/min 85-97 L CALCIUM (test code = CA) 7.7 mg/dl 8.0-10.5 L [id number] 08:08:00 Test Item Value Reference Range Interpretation Comments MAGNESIUM (test code = MAG) 2.1 mg/dl 1.8-2.4 N CBC W/AUTO [id number] 07:48:00 Test Item Value Reference Range Interpretation Comments WHITE BLOOD CELL (test code = 6.6 K/mm3 4.5-11.0 N WBC) RED BLOOD CELL (test code = 3.09 M/mm3 3.80-5.20 L RBC) HEMOGLOBIN (test code = HGB) 9.9 gm/dL 12.0-16.0 L HEMATOCRIT (test code = HCT) 31.1 % 36.0-48.0 L MEAN CELL VOLUME (test code = 100.6 UM3 82.0-99.0 H MCV) MEAN CELL HGB (test code = MCH) 32.0 UUG 25.5-32.5 N MEAN CELL HGB CONCETRATION 31.8 gm/dL 29.0-35.5 N (test code = MCHC) RED CELL DISTRIBUTION WIDTH 13.7 % 11.5-15.0 N (test code = RDW) RED CELL DISTRIBUTION WIDTH SD 50.8 fL 34.8-50.2 H (test code = RDW-SD) PLATELET COUNT (test code = 193 K/mm3 150-400 N PLT) MEAN PLATELET VOLUME (test code 10.3 fl 7.4-10.4 N = MPV) NEUTROPHIL % (test code = NT%) 66.7 % 49.0-76.0 N IMMATURE GRANULOCYTE % (test 1.2 % 0.0-0.4 H code = IG%) LYMPHOCYTE % (test code = LY%) 22.8 % 23.0-38.0 L MONOCYTE % (test code = MO%) 8.5 % 1.0-10.0 N EOSINOPHIL % (test code = EO%) 0.2 % 1.0-5.0 L BASOPHIL % (test code = BA%) 0.6 % 0.0-1.0 N NUCLEATED RBC % (test code = 0.0 % 0.0-0.1 N NRBC%) NEUTROPHIL # (test code = NT#) 4.4 K/mm3 2.4-6.3 N IMMATURE GRANULOCYTE # (test 0.08 x10 3/uL 0.00-0.07 H code = IG#) LYMPHOCYTE # (test code = LY#) 1.5 K/mm3 1.2-4.0 N MONOCYTE # (test code = MO#) 0.6 K/mm3 0.0-0.6 N EOSINOPHIL # (test code = EO#) 0.0 K/MM3 0.0-0.7 N BASOPHIL # (test code = BA#) 0.0 K/mm3 0.0-0.2 N NUCLEATED RBC # (test code = 0.00 X10 3uL 0.00-0.01 N NRBC#) BASIC METABOLIC [id number] 14:53:00 Test Item Value Reference Range Interpretation Comments SODIUM (test code = NA) 137 mmol/l 134.0-147.0 N POTASSIUM (test code = K) 3.1 mmol/L 3.6-5.2 L CHLORIDE (test code = CL) 108 mmol/l 98.0-107.0 H CARBON DIOXIDE (test code = CO2) 17.1 mmol/l 21.0-33.0 L ANION GAP (test code = GAP) 15.0 0-20 N GLUCOSE (test code = GLU) 114 mg/dl 70.0-110.0 H BLOOD UREA NITROGEN (test code = 27 mg/dl 7.0-18.0 H BUN) CREATININE (test code = CREAT) 2.11 mg/dL 0.60-1.30 H GFR NON BLACK (test code = 24 mL/min 70-80 L GFRNONBLACK) GFR BLACK (test code = GFRBLACK) 29 mL/min 85-97 L CALCIUM (test code = CA) 7.5 mg/dl 8.0-10.5 L PT HARD STICK E.LAB.BD 07/14/21 0849.CBC W/AUTO [id number] 14:39:00 Test Item Value Reference Range Interpretation Comments WHITE BLOOD CELL (test code = 7.3 K/mm3 4.5-11.0 N WBC) RED BLOOD CELL (test code = 3.42 M/mm3 3.80-5.20 L RBC) HEMOGLOBIN (test code = HGB) 10.8 gm/dL 12.0-16.0 L HEMATOCRIT (test code = HCT) 33.9 % 36.0-48.0 L MEAN CELL VOLUME (test code = 99.1 UM3 82.0-99.0 H MCV) MEAN CELL HGB (test code = MCH) 31.6 UUG 25.5-32.5 N MEAN CELL HGB CONCETRATION 31.9 gm/dL 29.0-35.5 N (test code = MCHC) RED CELL DISTRIBUTION WIDTH 13.7 % 11.5-15.0 N (test code = RDW) RED CELL DISTRIBUTION WIDTH SD 50.1 fL 34.8-50.2 N (test code = RDW-SD) PLATELET COUNT (test code = 194 K/mm3 150-400 N PLT) MEAN PLATELET VOLUME (test code 10.7 fl 7.4-10.4 H = MPV) NEUTROPHIL % (test code = NT%) 71.7 % 49.0-76.0 N IMMATURE GRANULOCYTE % (test 1.1 % 0.0-0.4 H code = IG%) LYMPHOCYTE % (test code = LY%) 16.8 % 23.0-38.0 L MONOCYTE % (test code = MO%) 9.6 % 1.0-10.0 N EOSINOPHIL % (test code = EO%) 0.4 % 1.0-5.0 L BASOPHIL % (test code = BA%) 0.4 % 0.0-1.0 N NUCLEATED RBC % (test code = 0.0 % 0.0-0.1 N NRBC%) NEUTROPHIL # (test code = NT#) 5.2 K/mm3 2.4-6.3 N IMMATURE GRANULOCYTE # (test 0.08 x10 3/uL 0.00-0.07 H code = IG#) LYMPHOCYTE # (test code = LY#) 1.2 K/mm3 1.2-4.0 N MONOCYTE # (test code = MO#) 0.7 K/mm3 0.0-0.6 H EOSINOPHIL # (test code = EO#) 0.0 K/MM3 0.0-0.7 N BASOPHIL # (test code = BA#) 0.0 K/mm3 0.0-0.2 N NUCLEATED RBC # (test code = 0.00 X10 3uL 0.00-0.01 N NRBC#) PT HARD STICK E.LAB.BD 07/14/21 0849.UR SODIUM [id number] 10:11:00 Test Item Value Reference Range Interpretation Comments UR SODIUM RANDOM (test code = LOVELY) 60 mmol/L 40-220 N UR CREATININE [id number] 10:11:00 Test Item Value Reference Range Interpretation Comments UR CREATININE RESULT (test code = 30.27 MG/DL 30-125 N CREATU) BASIC METABOLIC [id number] 07:01:00 Test Item Value Reference Range Interpretation Comments SODIUM (test code = NA) 135 mmol/l 134.0-147.0 N POTASSIUM (test code = K) 3.5 mmol/L 3.6-5.2 L CHLORIDE (test code = CL) 107 mmol/l 98.0-107.0 N CARBON DIOXIDE (test code = CO2) 12.8 mmol/l 21.0-33.0 L ANION GAP (test code = GAP) 18.7 0-20 N GLUCOSE (test code = GLU) 78 mg/dl 70.0-110.0 N BLOOD UREA NITROGEN (test code = 33 mg/dl 7.0-18.0 H BUN) CREATININE (test code = CREAT) 2.13 mg/dL 0.60-1.30 H GFR NON BLACK (test code = 24 mL/min 70-80 L GFRNONBLACK) GFR BLACK (test code = GFRBLACK) 29 mL/min 85-97 L CALCIUM (test code = CA) 7.2 mg/dl 8.0-10.5 L CBC W/AUTO [id number] 06:49:00 Test Item Value Reference Range Interpretation Comments WHITE BLOOD CELL (test code = 10.4 K/mm3 4.5-11.0 N WBC) RED BLOOD CELL (test code = 3.20 M/mm3 3.80-5.20 L RBC) HEMOGLOBIN (test code = HGB) 10.2 gm/dL 12.0-16.0 L HEMATOCRIT (test code = HCT) 34.1 % 36.0-48.0 L MEAN CELL VOLUME (test code = 106.6 UM3 82.0-99.0 H MCV) MEAN CELL HGB (test code = MCH) 31.9 UUG 25.5-32.5 N MEAN CELL HGB CONCETRATION 29.9 gm/dL 29.0-35.5 N (test code = MCHC) RED CELL DISTRIBUTION WIDTH 13.4 % 11.5-15.0 N (test code = RDW) RED CELL DISTRIBUTION WIDTH SD 52.2 fL 34.8-50.2 H (test code = RDW-SD) PLATELET COUNT (test code = 164 K/mm3 150-400 N PLT) MEAN PLATELET VOLUME (test code 10.7 fl 7.4-10.4 H = MPV) NEUTROPHIL % (test code = NT%) 74.7 % 49.0-76.0 N IMMATURE GRANULOCYTE % (test 0.8 % 0.0-0.4 H code = IG%) LYMPHOCYTE % (test code = LY%) 13.9 % 23.0-38.0 L MONOCYTE % (test code = MO%) 10.2 % 1.0-10.0 H EOSINOPHIL % (test code = EO%) 0.1 % 1.0-5.0 L BASOPHIL % (test code = BA%) 0.3 % 0.0-1.0 N NUCLEATED RBC % (test code = 0.0 % 0.0-0.1 N NRBC%) NEUTROPHIL # (test code = NT#) 7.8 K/mm3 2.4-6.3 H IMMATURE GRANULOCYTE # (test 0.08 x10 3/uL 0.00-0.07 H code = IG#) LYMPHOCYTE # (test code = LY#) 1.5 K/mm3 1.2-4.0 N MONOCYTE # (test code = MO#) 1.1 K/mm3 0.0-0.6 H EOSINOPHIL # (test code = EO#) 0.0 K/MM3 0.0-0.7 N BASOPHIL # (test code = BA#) 0.0 K/mm3 0.0-0.2 N NUCLEATED RBC # (test code = 0.00 X10 3uL 0.00-0.01 N NRBC#) BASIC METABOLIC [id number] 06:42:00 Test Item Value Reference Range Interpretation Comments SODIUM (test code = 134 mmol/l 134.0-147.0 N NA) POTASSIUM (test code = 4.6 mmol/L 3.6-5.2 N SAMPL E 1+ HEMOLYSED, K) REDRAW IF DEEME D NECESSARY. CHLORIDE (test code = 108 mmol/l 98.0-107.0 H CL) CARBON DIOXIDE (test 11.3 mmol/l 21.0-33.0 LL code = CO2) ANION GAP (test code = 19.3 0-20 N GAP) GLUCOSE (test code = 87 mg/dl 70.0-110.0 N GLU) BLOOD UREA NITROGEN 39 mg/dl 7.0-18.0 H (test code = BUN) CREATININE (test code 2.38 mg/dL 0.60-1.30 H = CREAT) GFR NON BLACK (test 21 mL/min 70-80 L code = GFRNONBLACK) GFR BLACK (test code = 25 mL/min 85-97 L GFRBLACK) CALCIUM (test code = 7.9 mg/dl 8.0-10.5 L CA) BASIC METABOLIC [id number] 16:32:00 Test Item Value Reference Range Interpretation Comments SODIUM (test code = NA) 141 mmol/l 134.0-147.0 N POTASSIUM (test code = K) 3.5 mmol/L 3.6-5.2 L CHLORIDE (test code = CL) 113 mmol/l 98.0-107.0 H CARBON DIOXIDE (test code = CO2) 12.6 mmol/l 21.0-33.0 L ANION GAP (test code = GAP) 18.9 0-20 N GLUCOSE (test code = GLU) 112 mg/dl 70.0-110.0 H BLOOD UREA NITROGEN (test code = 38 mg/dl 7.0-18.0 H BUN) CREATININE (test code = CREAT) 2.61 mg/dL 0.60-1.30 H GFR NON BLACK (test code = 19 mL/min 70-80 L GFRNONBLACK) GFR BLACK (test code = GFRBLACK) 23 mL/min 85-97 L CALCIUM (test code = CA) 7.6 mg/dl 8.0-10.5 L PT [id number]/[id number] 16:32:00 Test Item Value Reference Range Interpretation Comments MAGNESIUM (test code = MAG) 2.1 mg/dl 1.8-2.4 N PT H/SCBC W/AUTO [id number] 16:17:00 Test Item Value Reference Range Interpretation Comments WHITE BLOOD CELL (test code = 11.5 K/mm3 4.5-11.0 H WBC) RED BLOOD CELL (test code = 3.07 M/mm3 3.80-5.20 L RBC) HEMOGLOBIN (test code = HGB) 9.8 gm/dL 12.0-16.0 L HEMATOCRIT (test code = HCT) 30.9 % 36.0-48.0 L MEAN CELL VOLUME (test code = 100.7 UM3 82.0-99.0 H MCV) MEAN CELL HGB (test code = MCH) 31.9 UUG 25.5-32.5 N MEAN CELL HGB CONCETRATION 31.7 gm/dL 29.0-35.5 N (test code = MCHC) RED CELL DISTRIBUTION WIDTH 13.4 % 11.5-15.0 N (test code = RDW) RED CELL DISTRIBUTION WIDTH SD 50.0 fL 34.8-50.2 N (test code = RDW-SD) PLATELET COUNT (test code = 167 K/mm3 150-400 N PLT) MEAN PLATELET VOLUME (test code 11.0 fl 7.4-10.4 H = MPV) NEUTROPHIL % (test code = NT%) 80.3 % 49.0-76.0 H IMMATURE GRANULOCYTE % (test 0.5 % 0.0-0.4 H code = IG%) LYMPHOCYTE % (test code = LY%) 9.1 % 23.0-38.0 L MONOCYTE % (test code = MO%) 9.9 % 1.0-10.0 N EOSINOPHIL % (test code = EO%) 0.0 % 1.0-5.0 L BASOPHIL % (test code = BA%) 0.2 % 0.0-1.0 N NUCLEATED RBC % (test code = 0.0 % 0.0-0.1 N NRBC%) NEUTROPHIL # (test code = NT#) 9.2 K/mm3 2.4-6.3 H IMMATURE GRANULOCYTE # (test 0.06 x10 3/uL 0.00-0.07 N code = IG#) LYMPHOCYTE # (test code = LY#) 1.0 K/mm3 1.2-4.0 L MONOCYTE # (test code = MO#) 1.1 K/mm3 0.0-0.6 H EOSINOPHIL # (test code = EO#) 0.0 K/MM3 0.0-0.7 N BASOPHIL # (test code = BA#) 0.0 K/mm3 0.0-0.2 N NUCLEATED RBC # (test code = 0.00 X10 3uL 0.00-0.01 N NRBC#) - RETRO [id number] 18:29:00 [facility]VIED[facility] : 1945 Sex: F FAX: Karly Zayas DO [phone] Severance: St: ADM FAX: Wang Jorgensen MD [phone] FAX: Marisabel Snowden MD [phone] Name: JESSICA OVIEDO [facility] : 1945 Age/S: 75/F [address] [facility] Unit #: [id number] Loc: [place], [place]: [place] [address] Acct: [id number] Dis Date: Status: ADM IN PHONE #: [phone] Exam Date: 07/10/2021 1724 FAX #: [phone] Reason: Left renal abnormality on CT A/P EXAMS: CPT CODE: [id number] US RETRO LTD 41055 - US RETRO LTD - 07/10/2021 3:41 PM . Location Code: B2 CLINICAL INDICATION: Left renal abnormality on CT A/P. ADDITIONALHISTORY: None COMPARISON: CT abdomen 07/09/2021 TECHNIQUE: Grayscale and Doppler imaging of the kidneys was obtained. Right kidney is surgically absent. The left kidney measures 9.5 x 5.3 x 4.7 cm, cont aining an anechoic lesion off the inferior pole measuring 6.2 x 5.2 cm Small nonobstructing calculi noted. Bladder unremarkable. IMPRESSION: 1. Simple left renal cyst. 2. No acute abnormality detected 3. Surgically absent right kidney. at 1829 Reported and signed by: Alphonso Vanessa M.D. CC: Karly Maldonado DO; Wang Jorgensen MD; Marisabel Ricketts MD Technologist: [facility]IS [facility] Date/Time/By: 07/10/2021 (1828) : By: [email or web address] PAGE 1 Signed Report FAX: Karly Zayas DO [phone] Severance: St: ADM FAX: Wang Jorgensen MD [phone] FAX: Marisabel Snowden MD [phone] Name: JESSICA OVIEDO [facility] : 1945 Age/S: 75/F [address] [facility] Unit #: [id number] Loc: [place], [place]: [place] [address] Acct:[id number] Dis Date: Status: ADM IN PHONE #: [phone] Exam Date: 07/10/2021 1724 FAX #: [phone] Reason: Left renal abnormality on CT A/P EXAMS: CPT CODE: [id number] US RETRO LTD 36542 <Cont inued> Orig Print D/T: S: 07/10/2021 (183) PAGE 2 Signed ReportURINALYSIS [id number] 22:25:00 Test Item Value Reference Range Interpretation Comments UA COLOR (test code = YELLOW COLU) UA APPEARANCE (test code CLDY = APPU) UA GLUCOSE DIPSTICK (test NORMAL mg/dl NORMAL code = DGLUU) UA BILIRUBIN DIPSTICK NEGATIVE mg/dL NEGATIVE (test code = BILU) UA KETONE DIPSTICK (test NEGATIVE mg/dl NEGATIVE code = KETU) UA SPECIFIC GRAVITY (test 1.010 1.000-1.030 code = SGU) UA BLOOD DIPSTICK (test 250 Amadou/micL NEGATIVE A code = MICHAEL) Amadou/micL UA PH DIPSTICK (test code 6.0 5.0-9.0 = WATSON) UA PROTEIN DIPSTICK (test 100 mg/dl NEGATIVE A code = PROU) UA UROBILINIOGEN DIPSTICK NORMAL mg/dl NORMAL (test code = URO) UA NITRITE DIPSTICK (test POSITIVE NEGATIVE A code = TERESA) UA LEUKOCYTE ESTERASE 500 Selene/micL NEGATIVE A DIPSTICK (test code = Selene/micL LEUU) UA WBC (test code = WBCU) TNTC WBC/HPF NONE A UA RBC (test code = RBCU) TNTC RBC/HPF 0-3 A UA EPITHELIAL CELLS (test 10-15 EPI/HPF 0-3 A code = EPIU) UA BACTERIA (test code = MANY NONE A BACU) - CT ABD PELVIS W/O [id number] 21:43:00 [facility] JESSICA OVIED[facility] : 1945 Sex: F FAX: Cory Tucker [phone] Severance: St: REG FAX: Bekah De La Cruz MD [phone] -------- Name: JESSICA OVIEDO [facility] : 1945 Age/S: 75/F [address] [facility] Unit: [id number] Loc: E.ERS2 [place], [place]: [place] [address] Acct: [id number] Dis Date: Status: REG ER PHONE #: [phone] Exam Date: 07/09/20212055 FAX #: [phone] Reason: LUQ/LLQ abd pain, N/V/D; EXAMS: CPT CODE: [id number] CT ABD PELVIS W/O CONT 94530 CT abdomen and pelvis without IV contrast. Indication: Left upper quadrant pain left lower quadrant pain Location: R16 Comparison: None Technique: CT images of the abdomen and pelvis were obtained from the diaphragm to the pubic symphysis without the administration of intravenous contrast contrast. Coronal reformats are provided. One or more of the followingdose reduction techniques were used: Automated exposure control, adjustment of the mA and/or kV according to patient size, and/or utilization of iterative reconstruction technique. Findings: Lungs base s: Unremarkable. Upper GI: A moderate hiatal hernia is seen. Nonspecific air- filled density is seen at the 1st portion of the duodenum possibly reflecting a duodenal diverticulum Liver: Likely steatosis Gallbladder: Noncontrast appearance is unremarkable. Pancreas: Noncontrast appearance is unremarkable. Spleen: Noncontrast appearance is unremarkable the exception of calcified density within the splenic hilum measuring at least 1.3 cm favoring a splenic artery aneurysm. Adrenal glands: Noncontrast appearance is unremarkable. Kidneys/collecting system: The right kidney is surgically absent. 6.1 cm left lower pole cystic structure is indeterminate by CT criteria recommend further evaluation MRI. Multiple nonobstructing left renal calculi are seen. Likely compensatory hypertrophy is seen of the left kidney. Air is seen in the bladder possibly reflecting recent instrumentation recommend correlation with history Bowel: No bowel obstruction. The appendix is nonvisualized. There is nonspecific thickening of the hepatic flexure and transverse colon with diverticulosis and postsurgical changes of therectosigmoid also seen. Mild rectal thickening is noted. These findings may reflect sequela of acuteon chronic colitis, however further evaluation with colonoscopy is recommended. Peritoneum: No ascites or free air. PAGE 1 Signed Report (CONTINUED) FAX: Cory Tucker [phone] Severance: EMSt: [facility] FAX: Bekah De La Cruz MD [phone] Name: JESSICA OVIEDO [facility] : 1945 Age/S: 75/F [address] [facility] Unit: [id number] Loc: [facility] [place], [place]: [place] [address] Acct: [id number] Dis Date: Status: REG ER PHONE #: [phone] Exam Date: 07/09/20212055 FAX #: [phone] Reason: LUQ/LLQ abd pain, N/V/D; EXAMS: CPT CODE: [id number] CT ABD PELVIS W/O CONT 16919 <C ontinued> Vasculature: Aortic vascular calcifications are seen throughout. Skeletal: No acute fracture.. Impression: Exam findings limited by the absence of oral and IV contrast The right kidney is surgically absent. 6.1 cm left lower pole cystic structure is indeterminate by CT criteria recommend further evaluation MRI. Multiple nonobstructing left renal calculi are seen. Likely compensatory hypertrophy is seen of the left kidney. Air is seen in the bladder possibly reflecting recent instrumentation recommend correlation with history There is nonspecific thickening of the hepatic flexure and transverse colon with diverticulosis and postsurgical changes of the rectosigmoid also seen. Mild rectal thickening is noted. These findings may reflect sequela of acute on chronic colitis, however further evaluation with colonoscopy is recommended. at 2143 Reported and signed by: Miranda Vazquez M.D. CC: Cory Davis MD; Bekah De La Cruz MD Technologist: Agueda Campbell Trnscrd Dt/Tm: 07/09/2021 (2142) [email or web address] Orig Print D/T: S: 07/09/2021 (6 PAGE 2 Signed ReportCBC W/MANUAL [id number] 20:59:00 Test Item Value Reference Range Interpretation Comments WHITE BLOOD CELL (test code = 8.7 K/mm3 4.5-11.0 N WBC) RED BLOOD CELL (test code = 3.65 M/mm3 3.80-5.20 L RBC) HEMOGLOBIN (test code = HGB) 11.6 gm/dL 12.0-16.0 L HEMATOCRIT (test code = HCT) 36.6 % 36.0-48.0 N MEAN CELL VOLUME (test code = 100.3 UM3 82.0-99.0 H MCV) MEAN CELL HGB (test code = MCH) 31.8 UUG 25.5-32.5 N MEAN CELL HGB CONCETRATION 31.7 gm/dL 29.0-35.5 N (test code = MCHC) RED CELL DISTRIBUTION WIDTH 13.2 % 11.5-15.0 N (test code = RDW) RED CELL DISTRIBUTION WIDTH SD 49.1 fL 34.8-50.2 N (test code = RDW-SD) PLATELET COUNT (test code = 144 K/mm3 150-400 L PLT) MEAN PLATELET VOLUME (test code 11.1 fl 7.4-10.4 H = MPV) NEUTROPHIL % (test code = NT%) 34.3 % 49.0-76.0 L IMMATURE GRANULOCYTE % (test 0.5 % 0.0-0.4 H code = IG%) LYMPHOCYTE % (test code = LY%) 12.4 % 23.0-38.0 L MONOCYTE % (test code = MO%) 10.8 % 1.0-10.0 H EOSINOPHIL % (test code = EO%) 41.4 % 1.0-5.0 H BASOPHIL % (test code = BA%) 0.6 % 0.0-1.0 N NUCLEATED RBC % (test code = 0.0 % 0.0-0.1 N NRBC%) NEUTROPHIL # (test code = NT#) 3.0 K/mm3 2.4-6.3 N IMMATURE GRANULOCYTE # (test 0.04 x10 3/uL 0.00-0.07 N code = IG#) LYMPHOCYTE # (test code = LY#) 1.1 K/mm3 1.2-4.0 L MONOCYTE # (test code = MO#) 0.9 K/mm3 0.0-0.6 H EOSINOPHIL # (test code = EO#) 3.6 K/MM3 0.0-0.7 H BASOPHIL # (test code = BA#) 0.1 K/mm3 0.0-0.2 N NUCLEATED RBC # (test code = 0.00 X10 3uL 0.00-0.01 N NRBC#) SEGMENTED NEUTROPHILS (test 55 % 50.0-70.0 N code = SEG) LYMPHOCYTE (test code = LYMPH) 17 % 20-40 L TOTAL CELLS COUNTED (test code 100 #CELLS = TCC) MONOCYTE (test code = MON) 4 % 0-10 N EOSINOPHIL (test code = EOS) 24 % 1.0-5.0 H BASIC METABOLIC [id number] 20:37:00 Test Item Value Reference Range Interpretation Comments SODIUM (test code = NA) 137 mmol/l 134.0-147.0 N POTASSIUM (test code = K) 4.8 mmol/L 3.6-5.2 N CHLORIDE (test code = CL) 107 mmol/l 98.0-107.0 N CARBON DIOXIDE (test code = CO2) 16.5 mmol/l 21.0-33.0 L ANION GAP (test code = GAP) 18.3 0-20 N GLUCOSE (test code = GLU) 113 mg/dl 70.0-110.0 H BLOOD UREA NITROGEN (test code = 50 mg/dl 7.0-18.0 H BUN) CREATININE (test code = CREAT) 2.46 mg/dL 0.60-1.30 H GFR NON BLACK (test code = 20 mL/min 70-80 L GFRNONBLACK) GFR BLACK (test code = GFRBLACK) 24 mL/min 85-97 L CALCIUM (test code = CA) 9.4 mg/dl 8.0-10.5 N HEPATIC FUNCTION PANEL [id number] 20:37:00 Test Item Value Reference Range Interpretation Comments TOTAL PROTEIN (test code = PROT) 7.2 gm/dL 6.4-8.2 N ALBUMIN (test code = ALB) 4.1 gm/dl 3.2-4.7 N BILIRUBIN TOTAL (test code = 0.8 mg/dl 0.0-1.0 N BILT) BILIRUBIN DIRECT (test code = 0.1 mg/dl 0.0-0.3 N BILD) SGOT/AST (test code = AST) 48 Units/L 15-37 H SGPT/ALT (test code = ALT) 29 Units/L 12.0-78.0 N ALKALINE PHOSPHATASE TOTAL (test 127 Units/L 50.0-136.0 N code = ALKP) [id number] 20:37:00 Test Item Value Reference Range Interpretation Comments LIPASE (test code = LIP) 532 Units/L 65.0-230.0 H [id number] 20:37:00 Test Item Value Reference Range Interpretation Comments TROPONIN-I (test <0.02 NG/ML 0.00-0.06 N REFERENCE R JACIEL code = TROPI) TROPONIN I HEA LTHY INDIVIDUALS: <0 .06 ng/mL R/O ISCHE CHRISTINE: 0.07 - 0.60 ng/ mL CUT-OFF RANGE F OR AMI: 0.60 - 1.5 ng/m L - XR CHEST 1 [id number] 20:13:00 [facility] J[facility]ICA OVIED[facility] : 1945 Sex: F FAX: Cory Tucker [phone] Severance: St: REG FAX: Bekah De La Cruz MD [phone] -------- Name: JESSICA OVIEDO [facility] : 1945 Age/S: 75/F [address] [facility]: [id number] Loc: [address] Phys: [place] [address] Acct: [id number] Dis Date: Status: REG ER PHONE #: [phone] Exam Date: 07/09/20211999 FAX #: [phone] Reason: Abdominal Pain EXAMS: CPT CODE: [id number] XR CHEST 1 V 13073 Exam: AP chest Location: H 12 History: Abdominal Pain Comparison: None. Findings: The lungs are clear. No infiltrate or effusion is seen. The pulmonary vasculature is normal. The heart size is normal. A pacemaker is in place. The mediastinal silhouette is unremarkable. The bony thorax is intact. Impression: No acute disease. at 2013 Reported and signed by: Torsten Quiroz M.D. CC: Cory Rivers MD; Bekah De La Cruz MD Technologist: DAWSON LAIRD Trnscrd Date/Time/By: 07/09/2021 (2012) : By: Alaina PAGE 1 Signed Report FAX: Cory Tucker [phone] Severance: St: REG FAX:Bekah De La Cruz MD [phone] Name: JESSICA OVIEDO [facility] : 1945 Age/S: 75/F [address] [facility] Unit #: [id number] Loc: [address] [place] [address] Phys: [place] [address] Acct: [id number] Date: Status: REG ER PHONE #: [phone] Exam Date: 07/09/20211999 FAX #: [phone] Reason: Abdominal Pain EXAMS: CPT CODE: [id number] XR CHEST 1 V 32755 <Continued> Orig Print D/T: S: 07/09/2021 (2016) PAGE 2 Signed Report- CT CHEST W/O [id number] 15:04:00[facility] : 1945 Sex: F FAX: Sarah Oliver MD [phone] Severance: St: REG FAX: Cory Tucker [phone] ----- Name: JESSICA OVIEDO [facility] : 1945 Age/S: 75/F [address] [facility] Unit: [id number] Loc: [place]: [place] [address] Acct: [id number] Dis Date: Status: REG CLI PHONE #: [phone] Exam Date: 05/05/2021 1409 FAX #: [phone] Reason: cough EXAMS: CPT CODE: [id number] CT CHEST W/O CONTRAST 65418 EXAMINATION: CT chest without contrast INDICATION: cough COMPARISON: None LOCATION: S17 TECHNIQUE: Axial CT chest was performed without IV contrast. Sagittal and coronal reformatted images were created. This exam was performed according to our departmental dose optimization program, which includes automated exposure control, adjustment of the mA and/or kV according to patient size, and/or use of iterative reconstruction technique. DLP: 253 mGy-cm. CTDI: 6.7. FINDINGS: Limited evaluation of vascular structures without contrast. Moderately elevated right hemidiaphragm. Minimal scarring in the lung bases. Incidental 3 mm left major fissure nodule on image 36 of series 3. Noacute abnormality is seen in the lungs. No pleural effusion or pneumothorax. Patent central airways. Normal heart size. Right chest defibrillator. Extensive coronary calcifications. Normal caliber thoracic aorta. Normal caliber main pulmonary artery. No enlarged thoracic adenopathy. Small hiatal hernia. No acute abnormality in the upper abdomen. No acute osseous abnormality is identified. IMPRESSION: 1. No acute abnormality identified. PAGE 1 Signed Report (CONTINUED) FAX: Sarah Oliver MD [phone] Severance: St: REG FAX: Cory Tucker [phone] Name: JESSICA OVIEDO [facility] : 1945 Age/S: 75/F [address] [facility] Unit: [id number] Loc: [place], [place]: [place] [address] Acct: [id number] Dis Date: Status: REG CLI PHONE #: [phone] Exam Date: 05/05/2021 1409 FAX #: [phone] Reason: cough EXAMS: CPT CODE: [id number] CT CHEST W/O CONTRAST 13701<Continued> 2. Incidental 3 mm left major fissure nodule. If patient is low risk for lung cancer, no follow-up needed. If patient is high risk for lung cancer, follow-up can be performed in 12 months. Recommendations based on Fleischner Society guidelines. 3. Additional findings as above. at 1504 Reported and signed by: Joe Nascimento MD CC: Sarah Mora MD; Cory Davis MD Technologist: KAROLINA WADE Trnncrd Dt/Tm: 05/05/2021 (0023) [email or web address] Orig Print D/T: S: 05/05/2021 (1151 PAGE 2 Signed Report- XR CHEST 2 [id number] 11:25:00 [facility] JESSICA OVIED[facility] : 1945 Sex: F FAX: Karly Zayas DO [phone] Severance: St: REG FAX: Cory Tucker [phone] ----- Name: JESSICA OVIEDO [facility] : 1945 Age/S: 75/F [address] [employer] Unit #: [id number] Loc: [place], [place]: [place] [address] Acct: [id number] Dis Date: Status: REG CLI PHONE #:[phone] Exam Date: 01/30/2021 1118 FAX #: [phone] Reason: CHRONIC CONGESTIVE HEART FAILUREEXAMS: CPT CODE: [id number] XR CHEST 2 V 11970 EXAM: - XR CHEST 2 V CLINICAL HISTORY: CHRONIC CONGESTIVE HEART FAILURE TECHNIQUE: Single frontal view. COMPARISON: None available. LOCATION: U19 FINDINGS: Right chest wall 2- lead defibrillator. The trachea appears normal. The mediastinum and cardiac silhouette are within normal limits for size. The lungs are clear. No pleural effusions. Limited evaluation of soft tissues and osseous structures is grossly unremarkable. IMPRESSION: No acute cardiopulmonary process. at 1125 Reported and signed by: Cory Ayala M.D. CC: Karly Maldonado DO; Cory Davis MD Technologist: ELIJAH FARMER Trnscrd Date/Time/By: 01/30/2021 (1125) : By: [email or web address] PAGE 1 Signed Report FAX: Karly Zayas DO [phone] Severance: St: REG FAX: Cory Tucker [phone] Name: JESSICA OVIEDO [facility] : 1945 Age/S: 75/F [address] [facility] Unit #: [id number] Loc: [place], [place] [address] Acct: [id number] Dis Date: Status: REG CLI PHONE #: [phone] Exam Date: 01/30/2021 1118 FAX #: [phone] Reason: CHRONIC CONGESTIVE HEART FAILURE EXAMS: CPT CODE: [id number] XR CHEST 2 V 32162 <Continued> Orig Print D/T: S: 01/30/2021 (0855) PAGE 2 Signed Report- US RETROPERITONEAL [id number] 14:53:00[facility] : 1945 Sex: F Name: JESSICA OVIEDO [facility] : 1945 Age/S: 75 / F [address] [place] [address] Unit #: [id number] Loc: [place] [address] Phys: Cory Davis MD Acct: [id number] Dis Date: Status: REG CLI PHONE #: [phone] Exam Date: 10/04/2020 1449 FAX #: [phone] Reason: CHRONIC KIDNEY DISEASE EXAMS: CPT CODE: [id number] US RETROPERITONEAL COM [id number] EXAM: US RETROPERITONEAL COMPLETEDATE: 10/04/2020 2:06 PM : 1945; Age: 75 years y/o Female INDICATION: CHRONIC KIDNEY DISEASE COMPARISON: None. TECHNIQUE: Multiplanar grayscale and color Doppler ultrasound of the kidneys, aorta,IVC and urinary bladder. FINDINGS: Right kidney: Surgically absent. Left kidney: Mild pelviectasis is seen. Size: 9.1 cm. Echogenicity: Normal. Calculi: None. Cysts: 5.8 cm anechoic benign simple cyst in the lower pole of the left kidney is seen. No imaging follow-up is indicated. Masses: None. Abdominal aorta and bifurcation: Atherosclerotic changes are seen involving the aorta. The evaluation is limited due to bowel gas. Inferior vena cava: Visualized portion is normal. Bladder: Prevoid bladder volume measures 69 mL. Postvoid bladder volume measures 6.2 mL. IMPRESSION: Nonspecific mild left renalpelviectasis is seen from unknown etiology. 5.8 cm benign left renal simple cyst. ElectronicallySigned by Robert Jorgensen on 10/04/2020 at 6853 Reported and signed by: Kat Jorgensen D.O. PAGE 1 Signed Report (CONTINUED) Name: JESSICA OVIEDO [facility] : 1945 Age/S: 75 / F [address] [place] [address] Unit #: [id number] Loc: [place] [address] Phys: Cory Davis Acct: [id number] Dis Date: Status: REG CLI PHONE #: [phone] Exam Date: 10/04/2020 1449 FAX #: [phone] Reason: CHRONIC KIDNEY DISEASE EXAMS: CPT CODE: [id number] US RETROPERITONEAL COM [id number] (Continued) CC: Cory Davis MD Technologist: Kait Silva RDMS(Aletha)(BR) Trnscb Date/Time: 10/04/2020 (1452) [id number] Orig Print D/T: S: 10/04/2020 (1455) Probe: PAGE 2 Signed Report
[2022-05-24] MEDS ORDERED: ONDANSETRON 4 MG/2 ML VIAL ONE (20:35)
[2022-05-24] MEDS ORDERED: NA CHLORIDE 0.9% 500 ML ONE (20:35)
--- NOTE | 2022-05-24 21:01 | RAD REPORT ---
EXAM DESCRIPTION: RAD - Chest Single View - 05/24/2022 8:53 pm CLINICAL HISTORY: CHEST PAIN Chest pain. COMPARISON: Chest Single View dated 02/17/2016; Chest Pa And Lat (2 Views) dated 02/10/2016; Chest Sin gle View dated 01/25/2016; Chest Single View dated 10/29/2015 FINDINGS: Portable technique limits examination quality. The lungs are grossly clear. The heart is normal in size. Multi lead pacer/defibrillator device. IMPRESSION: No acute intrathoracic process suspected.
--- NOTE | 2022-05-24 21:12 | RAD REPORT ---
EXAM DESCRIPTION: CT - Abdomen Pelvis Wo Contrast - 05/24/2022 8:50 pm CLINICAL HISTORY: Abdominal pain. Lower abdominal pain COMPARISON: Stone Protocol dated 02/17/2016 TECHNIQUE: CT imaging of the abdomen and pelvis was performed without contrast. Solid organ, bowel a nd vascular assessment is limited due to lack of IV and oral contrast. All CT scans are performed using dose optimization technique as appropriate and may include automated exposure control or mA/KV adjustment according to patient size. FINDINGS: The lower lung estrada are clear.Moderate hiatal hernia. The liver, spleen, pancreas, adrenal glands are within normal limits for a limited non-contrast exami nation.Right kidney is nonvisualized. Left kidney contains several stones largest measuring 9 mm with out hydronephrosis. There is a 6 cm inferior left renal cysts, benign appearance. Significant amount of air is present in the urinary bladder as well as in the left kidney posterior calyx. No bowel obstruction, free air, free fluid or abscess. Nonvisualized appendix. Moderate lumbar degenerative changes. IMPRESSION: Air is noted in the urinary bladder and left kidney posterior calyx which could indicate urinary tract infection. Left nephrolithiasis without hydronephrosis. Nonvisualized right kidney. A limited non-contrast examination was performed as detailed.
[2022-05-24] MEDS ORDERED: Ringers Lactate 1,000 ML IV ONE (21:31)
[2022-05-24 21:32] LABS: Absolute Lymphocytes (CBC) 0.8 K/uL (0.7-4.9); Hematocrit 36.3 % (36.0-45.0); Lymphocytes % 4.5 % (15.3-44.8); MCV 94.6 fL (80-100); MPV 8.5 fL (7.6-11.3); RBC Red Blood Cell Count 3.84 M/uL (3.86-4.86)
[2022-05-24 21:51] LABS: Albumin 4.2 g/dL (3.4-5.0); Bilirubin Total 0.8 mg/dL (0.2-1.0); Potassium 3.6 mmol/L (3.5-5.1); Protein, Total 7.8 g/dL (6.4-8.2); Troponin High Sensitivity 31.1 pg/mL (<58.9)
[2022-05-24] MEDS ORDERED: MORPHINE 4 MG/ML SYR ONE (21:56)
[2022-05-24] MEDS ORDERED: Levofloxacin 750mg IV 750 MG/150 ML BAG IV ONE (23:51)
[2022-05-25 00:01] LABS: Urine Blood 2+ (Negative); Urine Glucose Negative (Negative); Urine Protein 2+ (Negative); Urine pH 5.5 (5.0-7.0)
[2022-05-25 00:16] LABS: Specific Gravity 1.014 (1.005-1.030); Urine Bacteria <20 /HPF (<20); Urine Bilirubin NEGATIVE (Negative); Urine Blood 2+ (Negative); Urine Clarity Turbid (Clear); Urine Color Yellow (Yellow); Urine Glucose NEGATIVE (Negative); Urine Mucus Slight /HPF (None Seen); Urine Protein 1+ (Negative); Urine RBC >50 /HPF (None Seen); Urine Urobilinogen Normal (Normal); Urine WBC Clump Rare /HPF (None Seen); Urine pH 5.5 (5.0-7.0)
--- NOTE | 2022-05-25 00:17 | EDPHYS ---
Physician Documentation [facility] Name: Nikki De Santiago Age: 76 yrs Sex: Female : 1945 Arrival Date: 05/24/2022 Time: 20: Bed 16 Private MD: ED Physician Yonis Edmond HPI: 05/24 20:04 This 76 yrs old Female presents to ER via EMS with complaints of N/V/D, Abdominal pain, ms3 Chest pain. 20:05 Onset: 30 minute(s) ago. ms3 20:05 The patient or guardian reports chest pain that is located primarily in the substernal ms3 area. 20:05 The pain does not radiate. Associated signs and symptoms: Pertinent positives: ms3 abdominal pain, nausea, vomiting. The chest pain is described as a pressure. Duration: The patient or guardian reports a single episode, that is still ongoing. Modifying factors: The symptoms are alleviated by nothing. Severity of pain: At its worst the pain was severe in the emergency department the pain is unchanged. 76-year-old female presents via [facility] for chest pain, nausea, vomiting, diarrhea, abdominal pain. Patient states chest pain is substernal and described as pressure. Patient rates pain 10/10. Patient states she is having lower abdominal cramping that she rates a 10/10 that has been going on all day. Patient states she also has associated symptoms of nausea, vomiting, diarrhea.. Historical: - Allergies: 20:04 Demerol; as6 20:04 Keflex; as6 20:04 PENICILLINS; as6 20:04 TETRACYCLINES; as6 - Home Meds: 05/25 00:07 Lasix Oral [Active]; sertraline Oral [Active]; Prevacid Oral [Active]; Metoprolol kd3 Tartrate Oral [Active]; lisinopril Oral [Active]; Synthroid Oral [Active]; - PMHx: 05/24 20:04 Arthritis; CHF; GERD; Hypertension; Lupus; Thyroid problem; as6 20:05 Kidney disease; as6 - PSHx: 20:04 Total abdominal hysterectomy; Tonsillectomy; as6 - Immunization history:: Client reports having NOT received the Covid vaccine. Flu vaccine is up to date. - Social history:: Smoking status: Patient denies any tobacco usage or history of. ROS: 20:05 Constitutional: Negative for fever, and chills. Neck: Negative for injury, pain, and ms3 swelling. 20:05 Respiratory: Negative for shortness of breath, cough, wheezing, and pleuritic chest pain. 20:05 Cardiovascular: Positive for chest pain. 20:05 Abdomen/GI: Positive for abdominal pain, nausea, vomiting, diarrhea. 20:05 All other systems are negative. Exam: 20:05 Constitutional: This is a well developed, well nourished patient who is awake, alert, ms3 and in no acute distress. Head/Face: Normocephalic, atraumatic. Neck: Trachea midline, no cervical lymphadenopathy. Supple, full range of motion without nuchal rigidity, or vertebral point tenderness. No Meningismus. Chest/axilla: Normal chest wall appearance and motion. Nontender with no deformity. Cardiovascular: Regular rate and rhythm with a normal S1 and S2. No gallops, murmurs, or rubs. Normal PMI, no JVD. No pulse deficits. Respiratory: Lungs have equal breath sounds bilaterally, clear to auscultation and percussion. No rales, rhonchi or wheezes noted. No increased work of breathing, no retractions or nasal flaring. 20:05 Skin: Warm, dry with normal turgor. Normal color with no rashes, no lesions, and no evidence of cellulitis. MS/ Extremity: Pulses equal, no cyanosis. Neurovascular intact. Full, normal range of motion. 20:05 Abdomen/GI: Inspection: abdomen appears normal, Bowel sounds: normal, Palpation: mild abdominal tenderness, in the right lower quadrant and left lower quadrant. 05/25 02:10 ECG was reviewed by the Attending Physician. ms3 Vital Signs: 05/24 20:01 BP 155 / 59; Pulse 73; Resp 15 S; Temp 97.5(O); Pulse Ox 100% on R/A; Weight 56.7 kg as6 (R); Height 5 ft. 0 in. (152.40 cm) (R); Pain 10; 22:00 BP 135 / 61; Pulse 89; Pulse Ox 95% ; kl 23:00 BP 127 / 55; Pulse 82; Resp 18; Pulse Ox 95% on 2 lpm NC; kl 05/25 00:05 BP 129 / 62; Pulse 88; Resp 18; Pulse Ox 92% on 2 lpm NC; kd3 00:51 Pulse 91; Resp 18; Pulse Ox 94% ; kl 02:30 BP 122 / 61; Pulse 83; Resp 17; Pulse Ox 98% on 2 lpm NC; ha1 03:30 BP 130 / 69; Pulse 84; Resp 19 S; Pulse Ox 98% on 2 lpm NC; ha1 12 20:01 Body Mass Index 24.41 (56.70 kg, 152.40 cm) as6 MDM: 05/24 20:02 Patient medically screened. ms3 20:05 Differential diagnosis: abnormal EKG, acute myocardial infarction, coronary artery ms3 disease chest wall pain, pericarditis, pneumonia, Diverticulitis vs bowel obstruction. Data interpreted: playground monitor: rate is 72 beats/min, rhythm is paced rhythm with no ectopy, Interpretation: normal rate, paced. 05/25 00:17 Data reviewed: vital signs, nurses notes, lab test result(s), EKG, radiologic studies, ms3 and as a result, I will admit patient. Counseling: I had a detailed discussion with the patient and/or guardian regarding: the historical points, exam findings, and any diagnostic results supporting the discharge/admit diagnosis, lab results, radiology results, the need for further work-up and treatment in the hospital, to return to the emergency department if symptoms worsen or persist or if there are any questions or concerns that arise at home. ED course: Discussed case with NADYA Drummond, and she accepts patient on behalf of Dr Rowley. Discussed labs and imaging with patient.. 05/24 20:03 Order name: CBC with Diff; Complete Time: 21:58 ms3 05/24 20:03 Order name: Troponin HS; Complete Time: 21:58 ms3 05/24 20:03 Order name: CMP; Complete Time: 21:58 ms3 05/24 20:03 Order name: Lipase; Complete Time: 21:58 ms3 05/24 21:59 Order name: Urinalysis; Complete Time: 00:22 ms3 05/24 22:00 Order name: Blood Culture Adult (2) ms3 05/25 00:01 Order name: Urine Dipstick-Ancillary; Complete Time: 00:13 EDMS 05/25 00:18 Order name: SARS RAPID ms3 05/25 00:19 Order name: Urine Culture EDMS 05/25 05:49 Order name: CBC with Automated Diff EDMS 05/25 06:41 Order name: Basic Metabolic Panel EDMS 05/25 06:41 Order name: Phosphorus EDMS 05/25 06:41 Order name: Troponin High Sensitivity EDMS 05/25 06:41 Order name: NT PRO-BNP EDMS 05/24 20:03 Order name: XRAY Chest (1 view); Complete Time: 21:15 ms3 05/24 20:03 Order name: EKG; Complete Time: 20:04 ms3 05/24 20:03 Order name: Cardiac monitoring; Complete Time: 20:05 ms3 05/24 20:03 Order name: EKG - Nurse/Tech; Complete Time: 00:05 ms3 05/24 20:03 Order name: IV Saline Lock; Complete Time: 20:06 ms3 05/24 20:03 Order name: CT Abd/Pelvis - Without Contrast; Complete Time: 21:15 ms3 05/25 06:41 Order name: Lipid Profile EDMS 05/25 06:41 Order name: Magnesium EDMS 05/25 06:41 Order name: Thyroid Stimulating Hormone EDMS 05/25 07:02 Order name: Hemoglobin A1c EDMS 05/25 08:48 Order name: Glucose, Ancillary Testing EDMS 05/25 16:57 Order name: Glucose, Ancillary Testing EDMS 05/24 20:03 Order name: Labs collected and sent; Complete Time: 00:04 ms3 05/24 20:03 Order name: O2 Per Protocol; Complete Time: 20:05 ms3 05/24 20:03 Order name: O2 Sat Monitoring; Complete Time: 20:05 ms3 05/24 21:59 Order name: Urine Dipstick-Ancillary (obtain specimen); Complete Time: 00:04 ms3 05/24 23:00 Order name: Cath: For urine please; Complete Time: 00:04 ms3 EC:10 Rate is 85 beats/min. Rhythm is regular. Right axis deviation noted. QRS interval is ms3 prolonged. Clinical impression: Paced rhythm. Interpreted by me. Reviewed by me. Administered Medications: 05/24 20:45 Drug: Zofran (Ondansetron) 4 mg Route: IVP; Site: left forearm; 05/25 00:53 Follow up: Response: No adverse reaction; Marked relief of symptoms 05/24 21:33 Drug: Lactated Ringers Solution 1000 ml Route: IV; Rate: 1000 bolus; Site: left forearm;kl 21:58 Drug: morphine 4 mg Route: IVP; Infused Over: 4 mins; Site: left wrist; kl 05/25 00:53 Follow up: Response: No adverse reaction; Marked relief of symptoms 00:04 Drug: levofloxacin 750 mg Volume: 150 ml; Route: IVPB; Infused Over: 90 mins; Site: kd3 left forearm; 00:53 Follow up: Response: No adverse reaction; IV Status: Completed infusion; IV Intake: kl 100ml Disposition Summary: 05/25/22 00:17 Hospitalization Ordered Hospitalization Status: Inpatient Admission ms3 Provider: Maksim Rowley ms3 Condition: Stable ms3 Problem: new ms3 Symptoms: are unchanged ms3 Bed/Room Type: Standard ms3 Location: Telemetry/MedSurg (Inpatient)(05/25/22 15:59) eb Room Assignment: 402(05/25/22 15:59) eb Diagnosis - Pyelonephritis acute ms3 - Nausea with vomiting, unspecified ms3 - Diarrhea, unspecified ms3 - Chest pain, unspecified ms3 Forms: - Medication Reconciliation Form ms3 - SBAR form ms3 Signatures: Dispatcher [employer] EDTalita Ramirez RN Mounika Schmid RN Lanette Yoo RN Gaye Isabel RN RN ss Botello, Elizabeth eb Sims, Marcus, DO DO ms3 Ramin Baires RN RN as6 Johanna Jerez RN RN kd3 Sudha Sloan PA-Jaswinder PA-Jaswinder sb4 Corrections: (The following items were deleted from the chart) 05/24 20:08 20:04 Onset: 30 minute(s) ago, ms3 ms3 05/25 00:38 00:17 Telemetry/MedSurg (Inpatient) ms3 mw 00:38 00:17 ms3 mw 06:32 00:38 [facility] ER HOLD mw mw 06:32 00:38 ERHOLD- mw mw 06:55 06:32 270B- mw dw 07:28 06:32 [facility] mw 07:28 06:55 278A- dw ss 15:59 07:28 [facility] ER HOLD ss eb 15:59 07:28 ERHOLD- ss eb
--- NOTE | 2022-05-25 00:17 | ER ---
Nurse's Notes [facility] Name: Nikki De Santiago Age: 76 yrs Sex: Female : 1945 Arrival Date: 05/24/2022 Time: 20:01 Bed 16 Private MD: Diagnosis: Pyelonephritis acute;Nausea with vomiting, unspecified;Diarrhea, unspecified;Chest pain, unspecified Presentation: 05/24 20:01 Chief complaint: EMS states: called out for chest pain, nausea, vomiting. 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 pt reports that is felt like her defibrillator went off. Coronavirus screen: At this time, the client does not indicate any symptoms associated with coronavirus-19. Ebola Screen: No symptoms or risks identified at this time. Initial Sepsis Screen: Does the patient meet any 2 criteria? No. Patient's initial sepsis screen is negative. Does the patient have a suspected source of infection? No. Patient's initial sepsis screen is negative. Risk Assessment: Do you want to hurt yourself or someone else? Patient reports no desire to harm self or others. Onset of symptoms was May 24, 2022. 20:01 Method Of Arrival: EMS: [facility] as6 20:01 Acuity: MARTHA 2 as6 20:06 Care prior to arrival: Medication(s) given: zofran 4 mg, IV initiated. 20 GA, in the as6 left hand. Triage Assessment: 20:06 General: Appears uncomfortable, Behavior is calm, cooperative. Pain: Complains of pain as6 in chest and abdomen. Cardiovascular: Chest pain quality is pressure. GI: Reports nausea, vomiting. Historical: - Allergies: 20:04 Demerol; as6 20:04 Keflex; as6 20:04 PENICILLINS; as6 20:04 TETRACYCLINES; as6 - Home Meds: 05/25 00:07 Lasix Oral [Active]; sertraline Oral [Active]; Prevacid Oral [Active]; Metoprolol kd3 Tartrate Oral [Active]; lisinopril Oral [Active]; Synthroid Oral [Active]; - PMHx: 05/24 20:04 Arthritis; CHF; GERD; Hypertension; Lupus; Thyroid problem; as6 20:05 Kidney disease; as6 - PSHx: 20:04 Total abdominal hysterectomy; Tonsillectomy; as6 - Immunization history:: Client reports having NOT received the Covid vaccine. Flu vaccine is up to date. - Social history:: Smoking status: Patient denies any tobacco usage or history of. Screenin/02 00:06 Abuse screen: Denies threats or abuse. Denies injuries from another. Nutritional kd3 screening: No deficits noted. Tuberculosis screening: No symptoms or risk factors identified. Fall Risk IV access (20 points). Assessment: 05/24 21:15 General: Patient states "I am having a hard time breathing.. tw5 22:18 Reassessment: Patient appears in no apparent distress at this time. No changes from kl previously documented assessment. Patient states symptoms have improved. 05/25 00:06 General: Appears in no apparent distress. Behavior is calm, cooperative. Pain: Denies kd3 pain. Neuro: Level of Consciousness is awake, alert, obeys commands, Oriented to person, place, time, situation. Cardiovascular: Capillary refill < 3 seconds in bilateral fingers Patient's skin is warm and dry. Respiratory: Airway is patent Trachea midline Respiratory effort is even, unlabored, Respiratory pattern is regular, symmetrical. 00:49 Reassessment: Patient appears in no apparent distress at this time. Patient and/or family updated on plan of care and expected duration. Pain level reassessed. Patient is alert, oriented x 3, equal unlabored respirations, skin warm/dry/pink. 01:50 Reassessment: Patient and/or family updated on plan of care and expected duration. Pain ha1 level reassessed. Patient is alert, oriented x 3, equal unlabored respirations, skin warm/dry/pink. 02:50 Reassessment: Patient and/or family updated on plan of care and expected duration. Pain ha1 level reassessed. Patient is alert, oriented x 3, equal unlabored respirations, skin warm/dry/pink. Vital Signs: 05/24 20:01 BP 155 / 59; Pulse 73; Resp 15 S; Temp 97.5(O); Pulse Ox 100% on R/A; Weight 56.7 kg as6 (R); Height 5 ft. 0 in. (152.40 cm) (R); Pain 10/10; 22:00 BP 135 / 61; Pulse 89; Pulse Ox 95% ; kl 23:00 BP 127 / 55; Pulse 82; Resp 18; Pulse Ox 95% on 2 lpm NC; kl 12/ 00:05 BP 129 / 62; Pulse 88; Resp 18; Pulse Ox 92% on 2 lpm NC; kd3 00:51 Pulse 91; Resp 18; Pulse Ox 94% ; kl 02:30 BP 122 / 61; Pulse 83; Resp 17; Pulse Ox 98% on 2 lpm NC; ha1 03:30 BP 130 / 69; Pulse 84; Resp 19 S; Pulse Ox 98% on 2 lpm NC; ha1 12 20:01 Body Mass Index 24.41 (56.70 kg, 152.40 cm) as6 ED Course: 05/24 20:01 Patient arrived in ED. as6 20:02 Yonis Edmond DO is Attending Physician. ms3 20:04 Triage completed. as6 20:05 Arm band placed on. as6 20:52 CT Abd/Pelvis - Without Contrast In Process Unspecified. EDMS 20:55 XRAY Chest (1 view) In Process Unspecified. EDMS 22:30 Inserted saline lock: 20 gauge in left forearm, using aseptic technique. kl 23:11 Johanna Jerez, RN is Primary Nurse. kd3 23:30 No apparent distress. Resting quietly. kl 12 00:04 Blood Culture Adult (2) Sent. kd3 00:04 Urinalysis Sent. kd3 00:06 Patient has correct armband on for positive identification. Placed in gown. Bed in low kd3 position. Call light in reach. Side rails up X2. Door closed. Noise minimized. Lights dimmed. Warm blanket given. Bath given. Cleaned of incontinence. Linen changed. 00:06 No provider procedures requiring assistance completed. kd3 00:16 Marquise Forman is Hospitalizing Provider. ms3 00:16 Maksim Rowley MD is Hospitalizing Provider. ms3 00:52 Patient admitted, IV remains in place. kl 03:59 SARS RAPID Sent. ha1 Administered Medications: 05/24 20:45 Drug: Zofran (Ondansetron) 4 mg Route: IVP; Site: left forearm; kl 05/25 00:53 Follow up: Response: No adverse reaction; Marked relief of symptoms kl 05/24 21:33 Drug: Lactated Ringers Solution 1000 ml Route: IV; Rate: 1000 bolus; Site: left forearm;kl 21:58 Drug: morphine 4 mg Route: IVP; Infused Over: 4 mins; Site: left wrist; kl 12 00:53 Follow up: Response: No adverse reaction; Marked relief of symptoms kl 00:04 Drug: levofloxacin 750 mg Volume: 150 ml; Route: IVPB; Infused Over: 90 mins; Site: kd3 left forearm; 00:53 Follow up: Response: No adverse reaction; IV Status: Completed infusion; IV Intake: kl 100ml Medication: 00:07 VIS not applicable for this client. kd3 Intake: 00:53 IV: 100ml; Total: 100ml. kl Outcome: 00:17 Decision to Hospitalize by Provider. ms3 00:51 Admitted to ER Hold. Please see [facility] for further documentation. kl 00:51 Condition: stable 00:51 Discharge instructions given to patient, Instructed on the need for admit, Demonstrated understanding of instructions. 20:36 Patient left the ED. tw5 Signatures: Dispatcher [employer] EDMS Talita Guerrero, RN Yonis Vallejo DO DO ms3 Hermila Tate tw5 Ramin Baires RN RN as6 Johanna Jerez RN RN kd3 Jenn Romano RN RN ha1
--- NOTE | 2022-05-25 00:29 | P.HP ---
Certification for Inpatient Patient admitted to: Inpatient With expected LOS: <2 Midnights Patient will require the following post-hospital care: None Practitioner: I am a practitioner with admitting privileges, knowledge of patient current condition, hospital course, and medical plan of care. Services: Services provided to patient in accordance with Admission requirements found in Title 42 Section 412.3 of the Code of Federal Regulations Patient History Date of Service: 05/25/22 Primary Care Provider: ERICK Reason for admission: Pyelonephritis History of Present Illness: Patient is a 76 year old female with past medical history of hypertension, hypothyroidism, CHF, and CKD who presented to the ED with complaints of nausea, vomiting, diarrhea, chest pain and abdominal pain. She reports the chest pain is substernal and feels like pressure, it is non radiating. She additionally states the abdominal pain is generalized in the lower quadrant and feels like a cramping sensation. No alleviating or aggravating factors. Labs are significant for WBC 18, hgb 11.6, BUN 22, Cr 1.68, urine positive for UTI. CT abdomen pelvis showed " Air is noted in the urinary bladder and left kidney posterior calyx which could indicate urinary tract infection. Left nephrolithiasis without hydronephrosis. Nonvisualized right kidney." Chest xray negative. She was given 1L fluids, levaquin, morphine, and zofran in ED. Patient is admitted for further management. Allergies cephalexin monohydrate [From Keflex] Allergy (Intermediate, Verified 07/08/14 09:20) Hives meperidine HCl [From Demerol] Allergy (Intermediate, Verified 01/26/16 00:09) Hives Penicillins Allergy (Intermediate, Verified 01/26/16 00:09) Hives tetracycline [Tetracycline] Allergy (Intermediate, Verified 07/08/14 09:20) Hives Tetracyclines Allergy (Uncoded 10/29/15 23:48) Unknown Home medications list reviewed: Yes Home Medications: Aspirin 81 mg PO DAILY 07/13/14 Atorvastatin Calcium [Lipitor] 40 mg PO DAILY 07/13/14 Clopidogrel Bisulfate [Plavix*] 75 mg PO DAILY 07/13/14 Furosemide [Lasix*] 40 mg PO DAILY 07/13/14 Lansoprazole [Prevacid] 30 mg PO DAILY 07/13/14 Levothyroxine [Synthroid*] 100 mcg PO DAILY 07/13/14 Metoprolol Succinate [Toprol Xl*] 50 mg PO DAILY 07/13/14 Multivitamin with Iron [Daily Vitamin + Iron] 1 tab PO DAILY 07/13/14 Sertraline [Zoloft*] 50 mg PO DAILY 07/13/14 Promethazine Tab [Phenergan*] 25 mg PO Q6HP PRN #30 tab 10/30/15 Tramadol HCl 50 mg PO Q6HP PRN 10/30/15 Ciprofloxacin HCl [Cipro 500 MG Tablet] 500 mg PO BID #20 tab 01/29/16 - Past Medical/Surgical History Diabetic: No -: CHF -: HTN -: Hypothyroidism -: GERD -: Lupus -: CAD -: back sx x2 -: hysterectomy -: arthoscopy heena knees -: pacemaker/defibrillator - Social History Smoking Status: Never smoker Alcohol use: No CD- Drugs: No Caffeine use: Yes Place of Residence: Home Review of Systems Cardiovascular: Chest Pain Gastrointestinal: Nausea, Vomiting, Abdominal Pain, Diarrhea Physical Examination - Physical Exam General: Alert, In no apparent distress HEENT: Atraumatic, PERRLA, EOMI, Sclerae nonicteric Neck: Supple, 2+ carotid pulse no bruit, No LAD, Without JVD or thyroid abnormality Respiratory: Clear to auscultation bilaterally, Normal air movement Cardiovascular: Regular rate/rhythm, Normal S1 S2 Gastrointestinal: Normal bowel sounds, No tenderness Musculoskeletal: No tenderness Integumentary: No rashes Neurological: Normal speech, Normal strength at 5/5 x4 extr, Normal tone, Normal affect Urinary: Matson catheter - Studies Laboratory Data (last 24 hrs) 05/24/22 21:05: Sodium 135 L, Potassium 3.6, BUN 22 H, Creatinine 1.68 H, G lucose 205 H, Total Bilirubin 0.8, AST 17, ALT 15, Alkaline Phosphatase 63, Lipase 151 05/24/22 21:05: WBC 18.00 H, Hgb 11.6 L, Hct 36.3, Plt Count 242 Assessment and Plan - Problems (Diagnosis) (1) UTI (urinary tract infection) Current Visit: Yes Status: Acute Qualifiers: Urinary tract infection type: acute cystitis Hematuria presence: with hematuria Qualified Code(s): N30.01 - Acute cystitis with hematuria (2) Anemia Current Visit: Yes Status: Chronic Qualifiers: Anemia type: due to chronic kidney disease Chronic kidney disease stage: stage 4 (severe) Qualified Code(s): N18.4 - Chronic kidney disease, stage 4 (severe); D63.1 - Anemia in chronic kidney disease (3) CHF (congestive heart failure) Current Visit: Yes Status: Acute Qualifiers: Heart failure type: diastolic Heart failure chronicity: chronic Qualified Code(s): I50.32 - Chronic diastolic (congestive) heart failure (4) Acute on chronic renal failure Current Visit: Yes Status: Acute Qualifiers: Acute renal failure type: unspecified Chronic kidney disease stage: stage 4 (severe) Qualified Code(s): N17.9 - Acute kidney failure, unspecified; N18.4 - Chronic kidney disease, stage 4 (severe) (5) Hyperlipidemia Current Visit: Yes Status: Chronic Qualifiers: Hyperlipidemia type: unspecified Qualified Code(s): E78.5 - Hyperlipidemia, unspecified (6) Hypertension Current Visit: Yes Status: Chronic Qualifiers: Hypertension type: primary hypertension Qualified Code(s): I10 - Essential (primary) hypertension (7) Hypothyroidism Current Visit: Yes Status: Chronic Qualifiers: Hypothyroidism type: unspecified Qualified Code(s): E03.9 - Hypothyroidism, unspecified - Plan Continue Levaquin for UTI given PCN allergy. Blood and urine cultures obtained. Vitals have been stable. No concern for sepsis at this time. Patient was initially complaining of chest pain but has since resolved. Troponin negative. Will trend. She received 1L fluid bolus in ED. Will hold off on additional fluids given CHF history. BNP ordered for AM. A1c ordered. Patient denies diabetes, BS elevated. ACHS accu checks with sliding scale as needed. Hemoglobin appears around baseline. Likely anemia of CKD. Cr also appears around baseline per chart review. Lipid panel and TSH pending. Monitor and replete electrolytes per protocol. Reconcile and continue home medications. Heparin for VTE prophylaxis. Full code Discharge Plan: Home Plan to discharge in: 48 Hours - Advance Directives Does patient have a Living Will: No Does patient have a Durable POA for Healthcare: No - Code Status/Comfort Care Code Status Assessed: Yes (Full) Critical Care: No Time Spent Managing Pts Care (In Minutes): 50
[2022-05-25] MEDS ORDERED: GLUCAGON 1 MG/VIAL IM PRN (03:16)
[2022-05-25] MEDS ORDERED: D50W 25 GM/50 ML SYRINGE IV PRN (03:16)
[2022-05-25] MEDS ORDERED: Levofloxacin500mg IV 500 MG/100 ML BAG IV SCH (03:16)
[2022-05-25] MEDS ORDERED: D10W 125 ML IV PRN (03:22)
[2022-05-25] MEDS ORDERED: Levofloxacin500mg IV 500 MG/100 ML BAG IV ONE (04:00)
[2022-05-25] MEDS ORDERED: ACETAMINOPHEN 325 MG TABLET ONE ×2 (04:24→20:03)
[2022-05-25] MEDS: ACETAMINOPHEN 325 MG TABLET PO PRN ×2 (04:32→20:03)
[2022-05-25 04:45] VITALS: BMI 24.4
[2022-05-25 04:52] LABS: SARS-CoV-2 Antigen Rapid Res Negative (Negative)
[2022-05-25] MEDS ORDERED: Levofloxacin 250mg IV 250 MG/50 ML BAG IV SCH ×2 (05:00→21:00)
[2022-05-25 05:41] LABS: Absolute Lymphocytes (CBC) 1.2 K/uL (0.7-4.9); Hematocrit 33.5 % (36.0-45.0); Lymphocytes % 8.3 % (15.3-44.8); MCV 92.6 fL (80-100); MPV 8.6 fL (7.6-11.3); RBC Red Blood Cell Count 3.62 M/uL (3.86-4.86)
[2022-05-25 06:29] LABS: Phosphorus 1.9 mg/dL (2.5-4.9); Thyroid Stimulating Hormone 0.687 uIU/mL (0.360-3.740)
[2022-05-25 06:41] LABS: Magnesium 1.7 mg/dL (1.8-2.4); Potassium 3.6 mmol/L (3.5-5.1); Troponin High Sensitivity 772.4 pg/mL (<58.9)
[2022-05-25] MEDS: INSULIN -REGULAR HUMAN 50 UNIT/0.5 ML ML SQ SCH ×4 (07:30→22:41)
--- NOTE | 2022-05-25 07:49 | EKG ---
Test Date: 2022-05-24 Test Time: 21:33:03 [employer]ement [employer] Maintenance: JOHNNY MEASUREMENT RESULTS: Intervals: Rate: 85 HI: 188 QRSD: 172 QT: 474 QTc: 564 [place]: P: 67 HI: 188 QRS: 96 T: -49 INTERPRETIVE STATEMENTS: Atrial-sensed ventricular-paced rhythm with occasional premature ventricular complexes Abnormal ECG Compared to ECG 07/08/2014 09:30:03 Ventricular premature complex(es) now present Sinus rhythm no longer present Left bundle-branch block no longer present Electronically Signed On 05-25-22 07:48:49 INFORMATION TECHNOLOGY SECURITY MANAGER by Johny Richardson
[2022-05-25] MEDS ORDERED: PNEUMOCOCCAL VACCINE 0.5 ML IMVAC ONE (08:00)
[2022-05-25] MEDS ORDERED: INFLUENZA VACCINE (for 6+ mo) 0.5 ML DOSE IMVAC ONE (08:00)
[2022-05-25] MEDS ORDERED: HEPARIN 5000 UNIT/ML 1 ML VIAL ONE (08:53)
[2022-05-25] MEDS ORDERED: ASPIRIN EC 81 MG TAB PO ONE (08:54)
[2022-05-25] MEDS ORDERED: CLOPIDOGREL 75 MG TABLET ONE (08:54)
[2022-05-25] MEDS: CLOPIDOGREL 75 MG TABLET PO SCH (09:00)
[2022-05-25] MEDS: HEPARIN 5000 UNIT/ML 1 ML VIAL SQ SCH ×2 (09:00→23:03)
[2022-05-25] MEDS: ASPIRIN EC 81 MG TAB PO SCH (09:00)
[2022-05-25] MEDS ORDERED: PANTOPRAZOLE 40MG TABLET PO ONE (15:17)
[2022-05-25] MEDS ORDERED: ONDANSETRON 4 MG/2 ML VIAL ONE (16:30)
[2022-05-25] MEDS: ONDANSETRON 4 MG/2 ML VIAL IV PRN ×2 (16:36→23:00)
--- NOTE | 2022-05-25 17:55 | CON ---
History Of Present Illness: This is a 76-year-old female consulted for evaluation of pyelonephritis. The patient has significant past medical history of right kidney removal and hypertensio n. The patient also has significant history of hypothyroidism, congestive heart failure, reflux, ost eoarthritis, fibromyalgia, stroke with right-sided weakness, coming in with not feeling well, nausea and vomiting for few days. Her urine was positive for urinary tract infection. CT abdomen showed le ft kidney posterior nini with stones without hydronephrosis. Past Medical History: As per HPI. Past Surgical History: Hysterectomy at age 35, tonsillectomy, appendectomy, back surgery in 1999 and 2004, and right big toe surgery. Social History: Nonsmoker, nondrinker. Family History: Noncontributory. Medications: Levaquin. See MAR for other medications. Allergies: CEPHALEXIN MONOHYDRATE, MEPERIDINE, PENICILLINS, TETRACYCLINES. Review of Systems: A 10-point review was performed. Physical Examination: General: The patient lying in emergency room, not in any acute cardiopulmonary distress. Vital Signs: Temperature 98, pulse 72, respirations 18, blood pressure 161/62. HEENT: Unremarkable. Neck: Supple. Lungs: Basal crackles. Heart: S1, S2. Regular. Abdomen: Soft, nontender. Bowel sounds present. Extremities: No edema. Laboratory Data: WBC 14.3 down from 18, hemoglobin 10.9, platelets are 198. Chemistry shows BUN of 18, creatinine 1.2, glucose is 98. Troponin is 772 with 13,350. Albumin level is 4.2. C hest x-ray shows no acute intrathoracic process. CT abdomen and pelvis noted in urinary b ladder and left kidney posterior nini which could include urinary tract infection, left nephrolithia sis without hydronephrosis, non visualized right kidney and limited noncontrast examination was perfo rmed. Assessment And Plan: Left-sided pyelonephritis and acute kidney injury, which is improving; anemia o f chronic disease, congestive heart failure, hyperlipidemia, hypertension, hypothyroidism. Continue current treatment with Levaquin as patient has allergies to penicillin. Pending culture results. To kamari of 7 days and repeat urinalysis. We will follow the patient as needed. Thank you for the consult. NF/CRISTIAN Voice ID: [id number] Report ID: [id number]
[2022-05-25] MEDS ORDERED: METOPROLOL TAR 50 MG TAB ONE (18:47)
[2022-05-25] MEDS: METOPROLOL TAR 25 MG TAB PO SCH (19:26)
[2022-05-25] MEDS ORDERED: TIZANIDINE 4 MG TABLET PO PRN (19:36)
[2022-05-25] MEDS: ATORVASTATIN 40 MG TAB PO SCH (23:00)
[2022-05-25] MEDS ORDERED: MAGNESIUM SULFATE 1 gm IVPB 1 GM/100 ML BAG IV ONE (23:29)
[2022-05-26] MEDS ORDERED: NA CHLORIDE 0.9% 500 ML IV ONE (00:10)
[2022-05-26] MEDS: METOPROLOL TAR 25 MG TAB PO SCH ×2 (04:39→17:03)
[2022-05-26] MEDS: PANTOPRAZOLE 40MG TABLET PO SCH (05:40)
[2022-05-26 06:00] LABS: Absolute Lymphocytes (CBC) 0.8 K/uL (0.7-4.9); Hematocrit 30.9 % (36.0-45.0); Lymphocytes % 8.3 % (15.3-44.8); MCV 93.1 fL (80-100); MPV 8.6 fL (7.6-11.3); RBC Red Blood Cell Count 3.32 M/uL (3.86-4.86)
[2022-05-26 06:46] LABS: Magnesium 2.4 mg/dL (1.8-2.4); Potassium 3.9 mmol/L (3.5-5.1)
[2022-05-26] MEDS: INSULIN -REGULAR HUMAN 50 UNIT/0.5 ML ML SQ SCH ×4 (07:30→21:00)
[2022-05-26] MEDS ORDERED: POTASSIUM PHOS IN 0.9 % NACL 15 MMOL/250 ML BAG IV ONE (09:00)
[2022-05-26] MEDS: ACETAMINOPHEN 325 MG TABLET PO PRN ×2 (10:01→23:05)
[2022-05-26] MEDS: ASPIRIN EC 81 MG TAB PO SCH (10:03)
[2022-05-26] MEDS: CLOPIDOGREL 75 MG TABLET PO SCH (10:04)
[2022-05-26] MEDS: HEPARIN 5000 UNIT/ML 1 ML VIAL SQ SCH ×2 (10:04→21:22)
[2022-05-26] MEDS: NA CHLORIDE 0.9% 1,000 ML IV SCH (15:53)
[2022-05-26 19:23] LABS: Specific Gravity 1.008 (1.005-1.030); Urine Bacteria 20-50 /HPF (<20); Urine Bilirubin NEGATIVE (Negative); Urine Blood 1+ (Negative); Urine Clarity Turbid (Clear); Urine Color Light-Yellow (Yellow); Urine Glucose NEGATIVE (Negative); Urine Protein TRACE (Negative); Urine Urobilinogen Normal (Normal)
[2022-05-26] MEDS ORDERED: Levofloxacin 750mg IV 750 MG/150 ML BAG IV SCH (21:00)
[2022-05-26] MEDS: ATORVASTATIN 40 MG TAB PO SCH (21:22)
[2022-05-27] MEDS: NA CHLORIDE 0.9% 1,000 ML IV SCH ×3 (04:20→17:40)
[2022-05-27 06:17] LABS: Absolute Lymphocytes (CBC) 1.1 K/uL (0.7-4.9); Hematocrit 31.9 % (36.0-45.0); Lymphocytes % 18.6 % (15.3-44.8); MCV 93.2 fL (80-100); MPV 8.8 fL (7.6-11.3); RBC Red Blood Cell Count 3.42 M/uL (3.86-4.86)
[2022-05-27 06:24] LABS: Phosphorus 2.3 mg/dL (2.5-4.9); Potassium 3.7 mmol/L (3.5-5.1)
[2022-05-27] MEDS: PANTOPRAZOLE 40MG TABLET PO SCH (06:30)
[2022-05-27] MEDS: METOPROLOL TAR 25 MG TAB PO SCH ×2 (06:31→17:49)
[2022-05-27] MEDS: INSULIN -REGULAR HUMAN 50 UNIT/0.5 ML ML SQ SCH ×4 (07:27→20:56)
[2022-05-27] MEDS ORDERED: POTASSIUM 25 MEQ EFFERV TAB PO ONE (07:36)
[2022-05-27] MEDS: POTASS/SODIUM PHOSPHATE 1 PKT POWD.PACK PO SCH ×3 (10:08→12:45)
[2022-05-27] MEDS: CLOPIDOGREL 75 MG TABLET PO SCH (10:09)
[2022-05-27] MEDS: ASPIRIN EC 81 MG TAB PO SCH (10:09)
[2022-05-27] MEDS: HEPARIN 5000 UNIT/ML 1 ML VIAL SQ SCH ×2 (10:09→20:57)
[2022-05-27] MEDS: ONDANSETRON 4 MG/2 ML VIAL IV PRN (12:45)
--- NOTE | 2022-05-27 17:51 | P.PN ---
Subjective Date of Service: 05/26/22 Subjective: No new changes, No C/O voiced, Improving Patient's troponins are elevated. Plan for cardiac catheterization on Saturday. Continue with antibiotic therapy. Review of Systems 10-point ROS is otherwise unremarkable Physical Examination - Vital Signs Temperature: 98.0 F Blood Pressure: 165/65 Pulse: 79 Respirations: 18 Pulse Ox (%): 97 - Physical Exam General: Alert, In no apparent distress, Oriented x3 Respiratory: Clear to auscultation bilaterally, Normal air movement Cardiovascular: Regular rate/rhythm, Normal S1 S2 Gastrointestinal: Normal bowel sounds, Soft and benign, Non-distended, No tenderness Musculoskeletal: No clubbing, No swelling, No tenderness Neurological: Sensation intact, Cranial nerves 3-12 intact - Studies Microbiology Data (last 24 hrs): 05/24/22 23:58 Clean Catch Urine [place] Count - Final >100,000 CFU/ML. 05/24/22 23:58 Clean Catch Urine - Final Klebsiella Pneumoniae Medications List Reviewed: Yes Assessment & Plan - Problems (Diagnosis) (1) Elevated troponin Current Visit: Yes Status: Acute (2) Acute on chronic renal failure Current Visit: Yes Status: Acute Qualifiers: Acute renal failure type: unspecified Chronic kidney disease stage: stage 4 (severe) Qualified Code(s): N17.9 - Acute kidney failure, unspecified; N18.4 - Chronic kidney disease, stage 4 (severe) (3) UTI (urinary tract infection) Current Visit: Yes Status: Acute Qualifiers: Urinary tract infection type: acute cystitis Hematuria presence: with hematuria Qualified Code(s): N30.01 - Acute cystitis with hematuria (4) Hyperlipidemia Current Visit: Yes Status: Chronic Qualifiers: Hyperlipidemia type: unspecified Qualified Code(s): E78.5 - Hyperlipidemia, unspecified (5) Hypertension Current Visit: Yes Status: Chronic Qualifiers: Hypertension type: primary hypertension Qualified Code(s): I10 - Essential (primary) hypertension - Plan Plan: 1. Continue with antibiotic therapy 2. Plan for cardiac cath on Saturday 3. Continue with antiplatelet therapy and statin therapy along with blood pressure control 4. Gentle hydration 5. Repeat renal ultrasound 6. GI/DVT prophylaxis Discharge Plan: Home Plan to discharge in: Greater than 2 days - Advance Directives Does patient have a Living Will: No Does patient have a Durable POA for Healthcare: No - Code Status/Comfort Care Code Status Assessed: Yes Code Status: Full Code Critical Care: No Time Spent Managing PTS Care (In Minutes): 35
--- NOTE | 2022-05-27 17:54 | P.PN ---
Date of Service: 05/27/22 Subjective Plan for cardiac catheterization on Saturday. Continue with antibiotic therapy. Review of Systems 10-point ROS is otherwise unremarkable Physical Examination - Vital Signs reviewed - Physical Exam General: Alert, In no apparent distress, Oriented x3 Respiratory: Clear to auscultation bilaterally, Normal air movement Cardiovascular: Regular rate/rhythm, Normal S1 S2 Gastrointestinal: Normal bowel sounds, Soft and benign, Non-distended, No tenderness Musculoskeletal: No clubbing, No swelling, No tenderness Neurological: Sensation intact, Cranial nerves 3-12 intact Assessment & Plan - Problems (Diagnosis) (1) Elevated troponin Current Visit: Yes Status: Acute (2) Acute on chronic renal failure Current Visit: Yes Status: Acute Qualifiers: Acute renal failure type: unspecified Chronic kidney disease stage: stage 4 (severe) Qualified Code(s): N17.9 - Acute kidney failure, unspecified; N18.4 - Chronic kidney disease, stage 4 (severe) (3) UTI (urinary tract infection) Current Visit: Yes Status: Acute Qualifiers: Urinary tract infection type: acute cystitis Hematuria presence: with hematuria Qualified Code(s): N30.01 - Acute cystitis with hematuria (4) Hyperlipidemia Current Visit: Yes Status: Chronic Qualifiers: Hyperlipidemia type: unspecified Qualified Code(s): E78.5 - Hyperlipidemia, unspecified (5) Hypertension Current Visit: Yes Status: Chronic Qualifiers: Hypertension type: primary hypertension Qualified Code(s): I10 - Essential (primary) hypertension - Plan 1. Continue with antibiotic therapy 2. Plan for cardiac cath on Saturday 3. Continue with antiplatelet therapy and statin therapy along with blood pressure control 4. Gentle hydration 5. Repeat renal ultrasound in AM 6. GI/DVT prophylaxis
[2022-05-27] MEDS: D5 0.45 NS 1,000 ML IV SCH (18:13)
[2022-05-27] MEDS: ACETAMINOPHEN 325 MG TABLET PO PRN (18:16)
[2022-05-27] MEDS: ATORVASTATIN 40 MG TAB PO SCH (20:56)
[2022-05-28] MEDS: ACETAMINOPHEN 325 MG TABLET PO PRN (02:18)
[2022-05-28 03:58] LABS: Magnesium 1.8 mg/dL (1.8-2.4); Phosphorus 2.1 mg/dL (2.5-4.9); Potassium 3.5 mmol/L (3.5-5.1)
[2022-05-28] MEDS: METOPROLOL TAR 25 MG TAB PO SCH ×2 (05:50→17:50)
[2022-05-28] MEDS: POTASS/SODIUM PHOSPHATE 1 PKT POWD.PACK PO SCH ×3 (05:51→08:59)
[2022-05-28] MEDS: PANTOPRAZOLE 40MG TABLET PO SCH (05:51)
[2022-05-28] MEDS ORDERED: POTASSIUM 25 MEQ EFFERV TAB PO ONE (06:00)
[2022-05-28] MEDS ORDERED: MAGNESIUM SULFATE 1 gm IVPB 1 GM/100 ML BAG IV ONE (06:00)
[2022-05-28] MEDS: INSULIN -REGULAR HUMAN 50 UNIT/0.5 ML ML SQ SCH ×3 (07:30→16:30)
--- NOTE | 2022-05-28 08:16 | RAD REPORT ---
EXAM DESCRIPTION: US - Renal Ultrasound-Complete - 05/28/2022 2:10 am CLINICAL HISTORY: UTI/pyelonephritis COMPARISON: Abdomen Pelvis Wo Contrast dated 05/24/2022 FINDINGS: The right kidney is absent. The left kidney measures 8.7 x 5.1 x 4.4 cm. Renal cortical t hickness and echogenicity are normal. No hydronephrosis or suspicious renal mass. A large exophytic c yst 6.0 centimeter cyst projects from the lower pole of the left kidney similar to recent CT study. T here is a 10 mm cyst in the lateral mid hilum. Bladder is only partially filled limiting assessment. No gross abnormality seen. IMPRESSION: No hydronephrosis or suspicious mass the left kidney. Benign cysts are present as detail ed. Left renal cortical thickness and echogenicity are normal range. Right nephrectomy.
[2022-05-28] MEDS: CLOPIDOGREL 75 MG TABLET PO SCH (08:58)
[2022-05-28] MEDS: ASPIRIN EC 81 MG TAB PO SCH (08:58)
[2022-05-28] MEDS: HEPARIN 5000 UNIT/ML 1 ML VIAL SQ SCH (08:59)
[2022-05-28 10:18] VITALS: O2SAT 99
--- NOTE | 2022-05-28 10:44 | CON ---
Reason For Consultation: Elevated troponin and pyelonephritis. History Of Present Illness: Ms. De Santiago is 76. Came in actually with substernal chest pressure, tr oponin 772. She has a pacemaker with paced rhythm on EKG. She had a white count of 14,000, BNP of 1 3,000, and was found to have pyelonephritis. She is pain-free now. She has a history of lupus, hype rtension, paroxysmal atrial fibrillation, gastroesophageal reflux disease, dyslipidemia, chronic carrera tolic congestive heart failure, and hypothyroidism. She prefers to have her care in [place] where duy has been followed for years. Has had chills, but no fever. Denied any palpitation or syncope. De nied PND, orthopnea, pedal edema. Allergies: SHE IS ALLERGIC TO PENICILLIN, DEMEROL, TETRACYCLINE, AND CEPHALEXIN. Review of Systems: Negative. Social History: Negative. Family History: Negative. Medications: At home include losartan, Norvasc, Protonix, metoprolol, Crestor, Eliquis, Neurontin, L asix, and Synthroid. Physical Examination: General: She was in a paced rhythm. No acute distress. Vital Signs: Stable, afebrile. HEENT: Negative. Neck: Supple without any bruit, lymphadenopathy, JVD, or thyromegaly. Chest: Clear to auscultation and percussion. Cardiac: Revealed a paced rhythm. Abdomen: Benign. Extremities: Revealed no clubbing, cyanosis, or edema. Diagnostic Data: As stated earlier. Impression And Plan: 1.Non-ST segment elevation myocardial infarction. 2.Pyelonephritis. 3.Lupus. 4.History of pacemaker. 5.Hypertension. 6.Dyslipidemia. 7.Paroxysmal atrial fibrillation. 8.Gastroesophageal reflux disease. 9.Hypothyroidism. 10.Dyslipidemia. 11.Chronic diastolic heart failure. Ms. De Santiago was being treated with pyelonephritis. She is on appropriate therapy. As far as her coronary artery disease is concerned, she is presently on Plavix, aspirin, Lipitor, heparin subcu, and metoprolol. Mrs. De Santiago prefers to have her cardiac care in [place] where she normally follows up and I agree with that. She is pain-free right now. She will s ee if she will have to be in the hospital for pyelonephritis. We will see how she does over the next couple of days before making further decisions. RYAN/CRISTIAN Voice ID: [id number] Report ID: [id number]
--- NOTE | 2022-05-28 11:30 | PN ---
Date of Progress Note: 05/26/2022 Ms. De Santiago came in with non-STEMI following arthritis. She has a history of pacemaker. While she was on telemetry, she was found to have her pacemaker not capturing occasional with heart rate dropping to the 40s without any hemodynamic compromise or symptoms. She was continued on her t reatment for her pyelonephritis. She has appropriate therapy for her non-STEMI. She wants to have h er follow up and her catheterization done in [place] and she prefers to go home and then go see her d octors there. She is pain free from a cardiac standpoint and I agree with that. However, I would rojas ve her company check the pacemaker function first before. She needs to have her pacemaker issue addr essed with her audio/visual operator in [place]. Case was discussed with Dr. Rowley. RYAN/CRISTIAN Voice ID: [id number] Report ID: [id number]
[2022-05-28 11:56] VITALS: BP 141/65; TEMP 97.1
[2022-05-28] MEDS: D5 0.45 NS 1,000 ML IV SCH (13:11)
--- NOTE | 2022-05-28 13:50 | EKG ---
Test Date: 2022-05-26 Test Time: 22:57:35 Shuttle Operator: 33 MEASUREMENT RESULTS: Intervals: Rate: 52 CT: QRSD: 118 QT: 524 QTc: 487 [place]: P: CT: QRS: -42 T: 75 INTERPRETIVE STATEMENTS: Demand pacemaker, interpretation is based on intrinsic rhythm Marked sinus bradycardia with AV dissociation and Junctional rhythm with occasional premature ventricular complexes Left axis deviation Incomplete right bundle branch block Anterior infarct, age undetermined Abnormal ECG Compared to ECG 05/24/2022 21:33:03 Junctional rhythm now present AV dissociation now present Left-axis deviation now present Incomplete right bundle-branch block now present Myocardial infarct finding now present Atrial-sensed ventricular-paced complex(es) or rhythm no longer present Electronically Signed On 05-28-22 13:47:15 NETWORK LIAISON by Ochoa Fox
--- NOTE | 2022-05-28 17:44 | PN ---
Subjective: Patient is lying in bed. Denies any headache, nausea, vomiting, chest pain, abdominal p ain, constipation, or diarrhea. Objective: Vital Signs: Temperature 97, pulse 93, respirations 18, blood pressure 141/65. Lungs: Basal crackles. Heart: S1, S2. Regular. Abdomen: Soft, nontender. Bowel sounds present. Extremities: No edema. Laboratory Data: Shows WBC 5.8 down from 18, hemoglobin 10.6, platelets 170. Chemistry shows BUN of 11, creatinine 1.1. Glucose is 121. Albumin level is 4.2. Assessment And Plan: Pyelonephritis secondary to Klebsiella pneumoniae. Patient is currently on Lev aquin. We will recommend to continue treatment for 2 weeks. Anemia of chronic disease. Leukocytosi s is improved. Renal failure, improving. We will follow patient as needed. NF/MODL Voice ID: [id number] Report ID: [id number]
[2022-05-28] MEDS ORDERED: LOSARTAN POTASSIUM 50 MG TABLET PO SCH (21:00)
[2022-05-28] MEDS ORDERED: levoFLOXacin 750 MG TAB PO SCH (21:00)
--- NOTE | 2022-05-28 22:03 | PN ---
Mrs. De Santiago had her pacemaker checked today and it was adjusted and had appropriate function of her pacemaker. She has a dual pacemaker. Threshold has been increased. I discussed the case with Dr. Rowley. The patient can go home. She will follow up with her forest landscape ecology professor in [place]. She had signif icantly increased troponin, chest pain, and pyelonephritis and I think she needs to have a heart cath eterization with her forest landscape ecology professor in [place] in the near future. RYAN/CRISTIAN Voice ID: [id number] Report ID: [id number]
--- NOTE | 2022-05-29 00:02 | P.DS ---
Discharge Date: 05/28/22 Primary Care Provider: ERICK Disposition: ROUTINE DISCHARGE Discharge Condition: GOOD Reason for Admission: Pyelonephritis - Problems (1) Elevated troponin Status: Acute (2) Acute on chronic renal failure Status: Acute Qualifiers: Acute renal failure type: unspecified Chronic kidney disease stage: stage 4 (severe) Qualified Code(s): N17.9 - Acute kidney failure, unspecified; N18.4 - Chronic kidney disease, stage 4 (severe) (3) UTI (urinary tract infection) Status: Acute Qualifiers: Urinary tract infection type: acute cystitis Hematuria presence: with hematuria Qualified Code(s): N30.01 - Acute cystitis with hematuria (4) Hyperlipidemia Status: Chronic Qualifiers: Hyperlipidemia type: unspecified Qualified Code(s): E78.5 - Hyperlipidemia, unspecified (5) Hypertension Status: Chronic Qualifiers: Hypertension type: primary hypertension Qualified Code(s): I10 - Essential (primary) hypertension Brief History of Present Illness: Patient is a 76 year old female with past medical history of hypertension, hypothyroidism, CHF, and CKD who presented to the ED with complaints of nausea, vomiting, diarrhea, chest pain and abdominal pain. She reports the chest pain is substernal and feels like pressure, it is non radiating. She additionally states the abdominal pain is generalized in the lower quadrant and feels like a cramping sensation. No alleviating or aggravating factors. Labs are significant for WBC 18, hgb 11.6, BUN 22, Cr 1.68, urine positive for UTI. CT abdomen pelvis showed " Air is noted in the urinary bladder and left kidney posterior calyx which could indicate urinary tract infection. Left nephrolithiasis without hydronephrosis. Nonvisualized right kidney." Chest xray negative. She was given 1L fluids, levaquin, morphine, and zofran in ED. Patient is admitted for further management. Hospital Course: Patient has done well during hospitalization. Patient was treated with antibiotic therapy. Patient had pacemaker interrogated. No significant abnormalities noted. Patient will follow-up with her die welder for further cardiac intervention. Patient does not want any further workup at this time. Plan to discharge home with antibiotic therapy. Outpatient follow-up with PCP and Cardiology. Vital Signs/Physical Exam: Temp Pulse Resp BP Pulse Ox 97.1 F 73 18 141/65 H 99 05/28/22 11:56 05/28/22 11:56 05/28/22 11:56 05/28/22 11:56 05/28/22 11:56 General: Alert, In no apparent distress, Oriented x3 Laboratory Data at Discharge: WBC 5.80 K/uL (4.3-10.9) 05/27/22 05:54 Hgb 10.6 g/dL (12.0-15.0) L 05/27/22 05:54 Hct 31.9 % (36.0-45.0) L 05/27/22 05:54 Plt Count 170 K/uL (152-406) 05/27/22 05:54 Sodium 136 mmol/L (136-145) 05/28/22 03:15 Potassium 3.5 mmol/L (3.5-5.1) 05/28/22 03:15 BUN 11 mg/dL (7-18) 05/28/22 03:15 Creatinine 1.13 mg/dL (0.55-1.3) 05/28/22 03:15 Glucose 121 mg/dL (74-106) H 05/28/22 03:15 Phosphorus 2.1 mg/dL (2.5-4.9) L 05/28/22 03:15 Magnesium 1.8 mg/dL (1.8-2.4) 05/28/22 03:15 Total Bilirubin 0.8 mg/dL (0.2-1.0) 05/24/22 21:05 AST 17 U/L (15-37) 05/24/22 21:05 ALT 15 U/L (12-78) 05/24/22 21:05 Alkaline Phosphatase 63 U/L (45-117) 05/24/22 21:05 Triglycerides 124 mg/dL (<150) 05/25/22 05:08 Cholesterol 120 mg/dL (<200) 05/25/22 05:08 HDL Cholesterol 48 mg/dL (40-60) 05/25/22 05:08 Cholesterol/HDL Ratio 2.50 05/25/22 05:08 Lipase 151 U/L (73-393) 05/24/22 21:05 Home Medications: Amlodipine [Norvasc*] 5 mg PO DAILY 05/25/22 Apixaban [Eliquis *] 2.5 mg PO BID 05/25/22 Escitalopram [Lexapro*] 20 mg PO DAILY 05/25/22 Fluticasone [Flonase 50MCG Nasal [place]*] 2 sprays NS DAILY 05/25/22 Furosemide 20 mg PO 05/25/22 Gabapentin 300 mg PO TID 05/25/22 Levothyroxine [Synthroid*] 88 mcg PO DAILY 05/25/22 Losartan Potassium 25 mg PO DAILY 05/25/22 Metoprolol Succinate 50 mg PO DAILY 05/25/22 Oxybutynin Chloride [Oxybutynin Chloride ER] 5 mg PO BID 05/25/22 Pantoprazole [Protonix Tab*] 40 mg PO DAILY 05/25/22 Rosuvastatin Calcium 40 mg PO DAILY 05/25/22 Tizanidine [Zanaflex*] 4 mg PO 05/25/22 sulfaSALAzine [Sulfasalazine] 500 mg PO 05/25/22 Levofloxacin [Levaquin] 500 mg PO DAILY #7 tab 05/28/22 Magnesium Chloride [Slow-Mag] 64 mg PO DAILY #10 tab 05/28/22 Potassium Chloride [K-Dur] 20 meq PO DAILY #30 tab 05/28/22 New Medications: Potassium Chloride [K-Dur] 20 meq PO DAILY #30 tab Levofloxacin [Levaquin] 500 mg PO DAILY #7 tab Magnesium Chloride [Slow-Mag] 64 mg PO DAILY #10 tab Physician Discharge Instructions: -DC IV and DC home -Follow-up with PCP in 1 to 2 weeks -Follow-up with Cardiology in 1 to 2 weeks -Follow-up with Urology in 1 to 2 weeks -Please call Dr. Rowley at [phone] if any questions regarding hospital stay -Please call nursing station at [phone] if any nursing or medication questions -Return to the emergency room if symptoms worsen Diet: AHA Activity: Fall precautions Followup: Johny Richardson MD [ACTIVE - CAN ADMIT] - Toan Holcomb [ACTIVE - CAN ADMIT] - Time spent managing pt's care (in minutes): 35
[2022-05-29] MEDS ORDERED: LOSARTAN POTASSIUM 50 MG TABLET PO ONE (09:43)
== END 2022-05-28 18:15 | disposition home or self-care (01) | DRG 689 ==
LOC: ER 19:51 → ERHOLD 05-25 00:40 → 4TH 05-25 19:16
PROVIDERS: ADMIT Hospitalist; ATTEND Hospitalist
DX: N10 Acute pyelonephritis (principal); I21.4 Non-ST elevation (NSTEMI) myocardial infarction; I50.32 Chronic diastolic (congestive) heart failure; I13.0 Hypertensive heart and chronic kidney disease with heart failure and stage 1 through stage 4 chronic kidney disease, or unspecified chronic kidney disease; I69.351 Hemiplegia and hemiparesis following cerebral infarction affecting right dominant side; N18.4 Chronic kidney disease, stage 4 (severe); D63.1 Anemia in chronic kidney disease; N17.9 Acute kidney failure, unspecified; E03.9 Hypothyroidism, unspecified; E78.5 Hyperlipidemia, unspecified; M79.7 Fibromyalgia; M32.9 Systemic lupus erythematosus, unspecified; M19.90 Unspecified osteoarthritis, unspecified site; D63.8 Anemia in other chronic diseases classified elsewhere; K21.9 Gastro-esophageal reflux disease without esophagitis; B96.1 Klebsiella pneumoniae [K. pneumoniae] as the cause of diseases classified elsewhere; R77.8 Other specified abnormalities of plasma proteins; Z88.0 Allergy status to penicillin; Z88.1 Allergy status to other antibiotic agents; Z88.8 Allergy status to other drugs, medicaments and biological substances; Z88.5 Allergy status to narcotic agent; Z79.52 Long term (current) use of systemic steroids; Z79.02 Long term (current) use of antithrombotics/antiplatelets; Z79.82 Long term (current) use of aspirin; Z79.899 Other long term (current) drug therapy; Z90.710 Acquired absence of both cervix and uterus; Z28.310 Unvaccinated for COVID-19; Z79.890 Hormone replacement therapy; Z95.810 Presence of automatic (implantable) cardiac defibrillator; Z20.822 Contact with and (suspected) exposure to COVID-19
CPT/HCPCS: 36415; 71045; 74176; 76770; 80048; 80053; 80061; 81001; 81003; 82947; 83036; 83690; 83735; 83880; 84100; 84443; 84484; 85025; 87040; 87077; 87086; 87088; 87186; 87811; 93005; 93280; 99285; J1644; J2405; J3475; J7030; J7040; J7120; J7799